=== PATIENT | male | born 1945 | race Caucasian/White ===

== ENCOUNTER 2018-07-16 21:47 | Emergency (ER) | payer MEDICARE, OTHER, SELFPAY ==
[2018-07-16 21:48] VITALS: BP 178/88; PULSE 65; RESP 15; TEMP 36.4; BMI 37.3
[2018-07-16 22:08] VITALS: BP 187/94; PULSE 62; RESP 18; O2SAT 96
--- NOTE | 2018-07-16 22:11 | EKG12_ITS ---
Test Reason : GEN ILL Blood Pressure : / mmHG Vent. Rate : 063 BPM Atrial Rate : 063 BPM P-R Int : 162 ms QRS Dur : 142 ms QT Int : 476 ms P-R-T Axes : 043 -02 028 degrees QTc Int : 487 ms Normal sinus rhythm Right bundle branch block Abnormal ECG Confirmed by ROBERT OREILLY, QUIN ([id number]), deputy editor in chief GABRIELA FRANCOIS ([id number]) on 07/19/2018 1:27:05 PM Referred By: Confirmed By:QUIN JONES MD
[2018-07-16 22:20] LABS: Bedside Glucose 124 mg/dL (70-110)
[2018-07-16 22:21] VITALS: BP 188/89; PULSE 64; RESP 18; O2SAT 95
[2018-07-16 22:22] VITALS: O2SAT 95
--- NOTE | 2018-07-16 22:22 | CT_ITS ---
HISTORY: HTN, DIZZINESS EXAM/TECHNIQUE: CT Head or Brain W/O Contrast: Multiplanar reformats provided. COMPARISON: None. FINDINGS: # of images incl. paperwork: 259 No evidence of intracranial hemorrhage, hydrocephalus mass, or acute infarct. No acute osseous abnormality. Scattered chronic appearing hypodensities in the cerebral white matter. Calcific atherosclerosis of the intracranial arteries. CT/Brain/Head without Contrast IMPRESSION: No acute findings. Individualized dose optimization techniques were used for this CT. at 2754 Reported and signed by: Jose Thomas MD Electronically Signed: Jose Thomas, at 23:16 EDT Tel , Service support ,
--- NOTE | 2018-07-16 22:24 | ED.VISSUMM ---
- ER Visit Summary Date of Service: 07/16/18 Chief Complaint: Lightheadedness History of Present Illness: The patient is a 73 M presenting with lightheadedness and elevated blood pressure. Patient states that he has been checking his blood pressures at home and they have been running with systolics in the 170s and 180s and diastolics in the 90s. He states he has felt intermittently lightheaded for the past week. He denies syncope or vertigo. He was started on a medication for depression 4 weeks ago as well as metoprolol 12.5 mg. He states that since starting this medication he has felt intermittently lightheaded. He denies chest pain. He has mild shortness of breath with dry cough. He has had diarrhea. He complains of 2 out of 10 headache which is not the worst headache of his life. He denies numbness or weakness. He states that he felt confused last week for a few minutes, no confusion today. Denies fever. Denies other complaints. Physical Examination: Vitals are stable. Patient is afebrile. Alert no acute distress. HEENT exam is unremarkable. Neck is supple. Lungs are clear and equal bilaterally. Heart is regular rate and rhythm. Abdomen is soft nontender nondistended. Extremities are unremarkable. Skin is warm and dry. No focal neurologic deficit. NIH 0 Remainder of exam is unremarkable. Emergency Department Course and Treatment: EKG is sinus with a rate of 63, right bundle branch block. Chest x-ray shows no acute process. CT head shows no acute findings. CBC is unremarkable. Chemistries unremarkable. Troponin is negative. Urinalysis unremarkable. Patient is able to ambulate in the ED without any difficulty. He states he feels well enough to go home. His symptoms have been ongoing for several weeks. His main concern was his blood pressure today. His blood pressure is 188/89 in the ED. He is advised to follow-up with his primary care physician at the [place]. He will call them on Wednesday. He is advised to return to ED if he has worsening complaints. Disposition: Discharge home Impression: Hypertension This note was generated with [employer] software. It may contain incorrect words, spelling, and punctuation that were not noted in review of the chart prior to signing ED Disposition - Plan for ED Patient: Referrals: [facility] [Primary Care Provider] -
--- NOTE | 2018-07-16 22:27 | ED.DCSUM_ITS ---
- ER Visit Summary Date of Service: 07/16/18 Chief Complaint: Lightheadedness History of Present Illness: The patient is a 73 M presenting with lightheadedness and elevated blood pressure. Patient states that he has been checking his blood pressures at home and they have been running with systolics in the 170s and 180s and diastolics in the 90s. He states he has felt intermittently lightheaded for the past week. He denies syncope or vertigo. He was started on a medication for depression 4 weeks ago as well as metoprolol 12.5 mg. He states that since starting this medication he has felt intermittently lightheaded. He denies chest pain. He has mild shortness of breath with dry cough. He has had diarrhea. He complains of 2 out of 10 headache which is not the worst headache of his life. He denies numbness or weakness. He states that he felt confused last week for a few minutes, no confusion today. Denies fever. Denies other complaints. Physical Examination: Vitals are stable. Patient is afebrile. Alert no acute distress. HEENT exam is unremarkable. Neck is supple. Lungs are clear and equal bilaterally. Heart is regular rate and rhythm. Abdomen is soft nontender nondistended. Extremities are unremarkable. Skin is warm and dry. No focal neurologic deficit. NIH 0 Remainder of exam is unremarkable. Emergency Department Course and Treatment: EKG is sinus with a rate of 63, right bundle branch block. Chest x-ray shows no acute process. CT head shows no acute findings. CBC is unremarkable. Chemistries unremarkable. Troponin is negative. Urinalysis unremarkable. Patient is able to ambulate in the ED wi thout any difficulty. He states he feels well enough to go home. His symptoms have been ongoing for several weeks. His main concern was his blood pressure today. His blood pressure is 188/89 in the ED. He is advised to follow-up with his primary care physician at the [place]. He will call them on Wednesday. He is advised to return to ED if he has worsening complaints. Disposition: Discharge home Impression: Hypertension This note was generated with [employer] dictation software. It may contain incorrect words, spelling, and punctuation that were not noted in review of the chart prior to signing ED Disposition - Plan for ED Patient: Referrals: [facility] [Primary Care Provider] -
[2018-07-16] MEDS: 0.9% Normal Saline 1,000 ML 50 ML IV (22:39)
[2018-07-16 22:50] VITALS: BP 174/101; PULSE 60; RESP 18; O2SAT 97
[2018-07-16 22:55] LABS: Bacteria 0 SEEN /hpf (None Seen); Mucous, Urine 0 SEEN /hpf (<or=2+); Red Blood Cells-Urine 0 SEEN /hpf (0-5); Squamous Epithelial Cells - UA 0 SEEN /hpf (0-5); White Blood Cells 0 SEEN /hpf (0-5)
[2018-07-16 22:59] LABS: Absolute Lymphocyte Count 3.34 X10^3/ul (0.83-4.51); Absolute Neutrophil Count 3.5 X10^3/uL (2.0-7.7); Basophil# 0.01 X10^3/uL; Basophil% 0.1 % (0-1); Eosinophil# 0.31 X10^3/uL; Eosinophils% 3.9 % (0-5); Hematocrit 42.7 % (40-54); Hemoglobin 14.7 g/dl (13.0-16.5); Lymphocyte # 3.34 X10^3/ul (4.0); Lymphocyte % 42.1 % (19-41); Mean Corp Hgb Conc 34.4 g/gl (32-36); Mean Corpuscular Hgb 29.5 pg (27.0-32.0); Mean Corpuscular Volume 85.7 fL (80-94); Mean Platelet Vol. 9.2 fl (6.2-12.0); Monocyte# 0.73 X10^3/uL; Monocyte% 9.2 % (0-10); Neutrophil # 3.52 X10^3/uL (2.7-7.7); Neutrophil % 44.3 % (47-70); Platelet Count 225 K/mm3 (150-450); RBC Distribution Width SD 40.5 fl (35.1-43.9); Red Blood Count 4.98 M/mm3 (4.6-6.2); White Blood Count 7.9 K/mm3 (4.4-11.0)
[2018-07-16 23:00] LABS: POSITIVE COUNT NO; POSITIVE DIFFERENTIAL NO; POSITIVE MORPHOLOGY NO
--- NOTE | 2018-07-16 23:00 | RAD_ITS ---
HISTORY: hypertension EXAM: XR Chest 2 Views COMPARISON: 08/04/13 CXR FINDINGS: LINES/DEVICES: None. LUNGS: No evidence of pneumothorax, pleural effusion, pneumonia, or pulmonary edema. Mild left basilar atelectasis chronic and unchanged. MEDIASTINUM AND CARDIOVASCULAR STRUCTURES: Cardiac silhouette not enlarged. Central airways and mediastinal contour are unremarkable. BONES AND SOFT TISSUES: Unremarkable. RAD/Chest PA and Lateral IMPRESSION: No radiographic evidence of acute cardiopulmonary disease. at 2319 Reported and signed by: Jose Thomas MD Electronically Signed: Jose Thomas, at 23:18 EDT Tel , Service support ,
[2018-07-16 23:01] LABS: Color, Urine Yellow (Yellow); Glucose, Dipstick Normal (Normal); Ketone-Dipstick Negative (Negative); Leukocyte Esterase-Dipstick Negative /ul (Negative); Nitrite-Dipstick Negative (Negative); Occult Blood-Urine Negative /ul (Negative); Protein-Dipstick 30 mg/dl (Negative); Urine Bilirubin Dipstick Negative (Negative); Urine Clarity Clear (Clear); Urine Urobilinogen Normal (Normal)
[2018-07-16 23:07] LABS: Prothrombin Time (Protime)PT. 12.5 SECONDS (11.7-14.9)
[2018-07-16 23:08] LABS: Partial Thromboplast Time 33.7 Seconds (24.1-36.2)
[2018-07-16 23:14] LABS: Anion Gap 7 (5-15); BUN 20 mg/dL (7-18); BUN/Creat Ratio 19.8 RATIO (10-20); Calcium,Total 8.3 mg/dL (8.5-10.1); Chloride 106 mmol/L (98-107); Creatinine, Serum 1.01 mg/dL (0.70-1.30); EST Glomerular Filtration Rate 77 mL/min (>60); Est Glom Filt Rate - Afr Amer 93 mL/min (>60); Estimated Creatinine Clearance 67.26 ml/min; Glucose 108 mg/dL (74-106); Potassium 3.2 mmol/L (3.5-5.1); Sodium Level 139 mmol/L (136-145)
--- NOTE | 2018-07-16 23:30 | ED.RN ---
PER DR. ROBERTS NO LONGER NEED TO DO NIH STROKE SCALE.
--- NOTE | 2018-07-17 00:09 | ED.DEP ---
ED Disposition - Plan for ED Patient: Instructions: ED HTN Established Referrals: [facility] [Primary Care Provider] -
[2018-07-17 00:20] VITALS: BP 183/99; PULSE 60; RESP 16; RESP 18; O2SAT 95
== END 2018-07-17 00:22 | disposition home or self-care (01) ==
LOC: ED 22:42
PROVIDERS: Emergency Provider Emergency Medicine
DX: I10 Essential (primary) hypertension (principal); R19.7 Diarrhea, unspecified; R06.02 Shortness of breath; R05 Cough; I45.10 Unspecified right bundle-branch block; F32.9 Major depressive disorder, single episode, unspecified; E11.9 Type 2 diabetes mellitus without complications; Z79.82 Long term (current) use of aspirin; Z79.84 Long term (current) use of oral hypoglycemic drugs; Z79.899 Other long term (current) drug therapy
CPT/HCPCS: 70450; 71046; 80048; 81001; 82962; 84484; 85025; 85610; 85730; 93005; 96360; 96361; 99285; J7030; A4216

== ENCOUNTER 2020-10-11 03:34 | Emergency (ER) | payer MEDICARE, OTHER, SELFPAY ==
[2020-10-11 03:35] VITALS: BP 132/96; PULSE 53; RESP 22; TEMP 36.7; O2SAT 94; BMI 37.1
--- NOTE | 2020-10-11 03:43 | EX.ED.UPPERE ---
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 He denies any known injury or overuse that he can remember. He does not recall the onset, if he woke up with it, if it started later, etc. He denies any chest discomfort, pleuritic symptoms, dyspnea, or focal neurologic symptoms except for occasional paresthesias in his right hand when he is having this discomfort and lying back, it resolves when he sits up. He is asking for a muscle relaxer so he can get to sleep. RHD. He states his son felt some lumps where he is having the pain. [facility] Medical History HTN (hypertension) Hypercholesteremia Home Medications Potassium Citrate 10 meq PO DAILY 02/22/13 [History Last Taken Unknown] aspirin 81 mg PO DAILY@0800 02/22/13 [History Last Taken Unknown] aripiprazole [Abilify] 5 mg PO DAILY 07/16/18 [History Last Taken Unknown] atorvastatin [Lipitor] 80 mg PO DAILY 07/16/18 [History Last Taken Unknown] losartan 100 mg PO DAILY 07/16/18 [History Last Taken Unknown] metformin 1,000 mg PO BID 07/16/18 [History Last Taken Unknown] metoprolol succinate 12.5 mg PO DAILY 07/16/18 [History Last Taken Unknown] mirabegron [Myrbetriq] 25 mg PO DAILY 07/16/18 [History Last Taken Unknown] nifedipine 60 mg PO DAILY 07/16/18 [History Last Taken Unknown] paroxetine HCl 20 mg PO DAILY 07/16/18 [History Last Taken Unknown] tamsulosin 0.4 mg PO DAILY 07/16/18 [History Last Taken Unknown] valproic acid 250 mg PO DAILY 07/16/18 [History Last Taken Unknown] cyclobenzaprine 10 mg PO BID PRN #12 tablet 10/11/20 [Rx Last Taken Unknown] hydrocodone-acetaminophen 0.5 - 1 tab PO Q4H PRN PRN 2 Days #8 tablet 10/11/20 [Rx Last Taken Unknown] Allergy/AdvReac Type Severity Reaction Status Date / Time No Known Allergies Allergy Verified 07/16/18 21:51 Social History Smoking Status: Unknown if ever smoked ROS ROS ED Constitutional Constitutional ED: Denies chills or fever(s) Eyes Eyes: Denies change in vision or diplopia ENT ENT ED: Denies rhinorrhea or sore throat Cardiovascular Cardiovascular: Denies chest pain, chest pain with activity or palpitations Respiratory/Chest Respiratory/Chest: Denies chest tightness, cough, dyspnea or dyspnea on exertion Gastrointestinal Gastrointestinal: Denies abdominal pain, diarrhea, nausea or vomiting Genitourinary Genitourinary ED: Denies dysuria or hematuria Musculoskeletal Musculoskeletal: Reports as per HPI and back pain; Denies neck pain Integumentary Denies abscess or rash Neurologic Neurologic: Denies headache(s), paresthesias or weakness Psychiatric Psychiatric: Denies anxiety or suicidal thoughts EXAM Physical Exam Const Vital Signs: 10/11/20 03:35 Temperature 98.1 F Temperature Source Oral Pulse Rate 53 L Respiratory Rate 22 H Blood Pressure 132/96 H Blood Pressure Mean 108 Pulse Ox 94 Oxygen Delivery Method Room Air Positive well nourished and well developed General Appearance ED: well developed and NAD HEENT Reports moist mucous membranes normocephalic and atraumatic Eyes PERRL and EOMs intact bilaterally Neck full ROM and supple Resp normal respiratory effort and clear to auscultation bilaterally Cardio regular rate, regular rhythm and no murmurs Rate: Negative for tachycardic GI non-tender and non-distended Auscultation: normoactive bowel sounds Palpation: soft Back/Spine no CVA tenderness Back/Spine Narrative: Tenderness reproducing the patient's pain in the right rhomboids and medial periscapular area. Normal inspection of this area. No palpable lumps or nodules or abscess. Nontender in the midline/spine. Full range of motion of the right upper arm/shoulder. Deep inspiration without splinting. General Back: other FROM Extremity normal to inspection General Extremety ED: Negative for edema, pulses abnormal or tenderness General Extremity: Negative for edema or pulses abnormal Neuro oriented x3, CN's II-XII intact bilaterally, no sensory deficits noted and gait normal Sensorium / Orientation: awake and alert Motor Exam: strength 5/5 throughout Skin no rashes or lesions noted and no wounds MDM MDM MDM Narrative Medical decision making narrative: At this time I think this is musculoskeletal in etiology. Patient agrees. I am okay with giving him a short supply of analgesics and muscle relaxers until he can follow-up, he is driving home so he was given prescriptions to have filled and take when he gets home. Discussed reasons to return and follow-up and he is comfortable with that plan. Discharge Plan Triage Chief Complaint: Upper Extremity Injury ED Provider: Terry Gordon Dx/Rx/DC Orders Clinical Impression: Acute thoracic back pain Instructions: ED Back Pain (Acute or Chronic) Prescriptions: New cyclobenzaprine [cyclobenzaprine] 10 MG tablet 10 mg PO BID PRN (Reason: Muscle Spasm) Qty: 12 RF: 0 hydrocodone-acetaminophen [hydrocodone-acetaminophen] 1 TABLET tablet 0.5 - 1 tab PO Q4H PRN PRN (Reason: Pain) 2 Days Qty: 8 RF: 0 No Action aspirin 81 MG tablet,chewable 81 mg PO DAILY@0800 RF: 0 Potassium Citrate 10 meq PO DAILY RF: 0 atorvastatin [Lipitor] 80 MG tablet 80 mg PO DAILY RF: 0 valproic acid 250 MG capsule 250 mg PO DAILY RF: 0 nifedipine 60 MG tablet 60 mg PO DAILY RF: 0 tamsulosin 0.4 MG capsule 0.4 mg PO DAILY RF: 0 paroxetine HCl 20 MG tablet 20 mg PO DAILY RF: 0 metformin 1,000 MG tablet 1,000 mg PO BID RF: 0 metoprolol succinate 25 MG tablet extended release 24 hr 12.5 mg PO DAILY RF: 0 losartan 100 MG tablet 100 mg PO DAILY RF: 0 aripiprazole [Abilify] 5 MG tablet 5 mg PO DAILY RF: 0 mirabegron [Myrbetriq] 25 MG tablet extended release 24 hr 25 mg PO DAILY RF: 0 [facility] [[facility]] - 3-5 Days if not improving Disposition Disposition: Home, Self Care
== END 2020-10-11 04:28 | disposition home or self-care (01) ==
LOC: ED 03:56
PROVIDERS: Emergency Provider Emergency Medicine
DX: M54.6 Pain in thoracic spine (principal); I10 Essential (primary) hypertension; E78.00 Pure hypercholesterolemia, unspecified; Z79.82 Long term (current) use of aspirin; Z79.899 Other long term (current) drug therapy
CPT/HCPCS: 99282

== ENCOUNTER 2021-09-01 16:45 | Inpatient (IN) | payer OTHER, SELFPAY ==
[2021-09-01] VITALS (11 sets, daily range): BP systolic 87–112; BP diastolic 43–79; PULSE 42–58; RESP 16–23; TEMP 36.2–36.7; O2SAT 92–99; BMI 36.3; BMI 36.4
--- NOTE | 2021-09-01 17:03 | EKG12_ITS ---
Test Reason : Blood Pressure : / mmHG Vent. Rate : 043 BPM Atrial Rate : 043 BPM P-R Int : 184 ms QRS Dur : 146 ms QT Int : 508 ms P-R-T Axes : 051 014 032 degrees QTc Int : 429 ms Marked sinus bradycardia Right bundle branch block Abnormal ECG Confirmed by NAV OREILLY, TANA ([id number]), proposal editor GABRIELA FRANCOIS ([id number]) on 09/02/2021 9:04:52 AM Referred By: JEREMY Confirmed By:TANA CHOPRA MD
--- NOTE | 2021-09-01 17:04 | EDS_ITS ---
HPI History of Present Illness Chief Complaint: General Illness Narrative Narrative: 26-year-old male presenting with lightheadedness and near syncope which started today at about 330. He noted his blood pressure was in the 70s systolic. He states this is same blood pressure cuff that he always uses. He has had no medication changes. Patient takes losartan 100 mg p.o. daily, metoprolol succinate 12.5 mg p.o. daily, nifedipine which may have affected his blood pressure. Patient denies chest pain. He states that shortness of breath is his typical shortness of breath. No fever, cough. No nausea or vomiting. He denies leg swelling. He states he had diarrhea once 3 days ago and does not think he is dehydrated. He is eating and drinking normally. Is making normal urine and stool. He denies black or bloody stools. He is not anticoagulated. [facility] Medical History (Updated 09/01/21 @ 19:44 by Kait Hoyos) Anxiety CPAP (continuous positive airway pressure) dependence Depression Diabetes Former smoker HTN (hypertension) Hypercholesteremia Kidney stones PTSD (post-traumatic stress disorder) Sleep apnea Home Medications Potassium Citrate 10 meq PO DAILY 02/22/13 [History Last Taken 09/01/21] aspirin 81 mg chewable tablet 81 mg PO DAILY@0800 02/22/13 [History Last Taken 09/01/21] aripiprazole 5 mg tablet (Abilify) 5 mg PO DAILY 07/16/18 [History Last Taken 09/01/21] atorvastatin 80 mg tablet (Lipitor) 80 mg PO DAILY 07/16/18 [History Last Taken 08/31/21] losartan 100 mg tablet 100 mg PO DAILY 07/16/18 [History Last Taken 09/01/21] metformin 1,000 mg tablet 1,000 mg PO BID 07/16/18 [History Last Taken 09/01/21] metoprolol succinate 25 mg tablet,extended release 24 hr 12.5 mg PO DAILY 07/16/18 [History Last Taken 09/01/21] mirabegron 25 mg tablet,extended release 24 hr (Myrbetriq) 25 mg PO DAILY 07/16/18 [History Last Taken 09/01/21] nifedipine 60 mg tablet,extended release 24 hr 60 mg PO DAILY 07/16/18 [History Last Taken 09/01/21] paroxetine HCl 20 mg tablet 20 mg PO DAILY 07/16/18 [History Last Taken 09/01/21] tamsulosin 0.4 mg capsule 0.4 mg PO DAILY 07/16/18 [History Last Taken 09/01/21] valproic acid 250 mg capsule 250 mg PO DAILY 07/16/18 [History Last Taken 09/01/21] cyclobenzaprine 10 mg tablet 10 mg PO BID PRN Muscle Spasm #12 TABLETS 10/11/20 [Rx Last Taken 09/01/21] hydrocodone-acetaminophen 5-325mg 5mg-325mg 0.5 - 1 tab PO Q4H PRN PRN Pain 2 days #8 TABLETS 10/11/20 [Rx Last Taken Unknown] Allergy/AdvReac Type Severity Reaction Status Date / Time No Known Allergies Allergy Verified 07/16/18 21:51 Surgical History (Updated 09/01/21 @ 19:44 by Kait Hoyos) History of cholecystectomy Social History Smoking Status: Former smoker ROS ROS ED Constitutional Constitutional ED: Denies chills, fever(s) or sweats Eyes Eyes: Denies blurry vision or change in vision ENT ENT ED: Denies rhinorrhea or sore throat Cardiovascular Cardiovascular: Reports palpitations; Denies chest pain Respiratory/Chest Respiratory/Chest: Denies cough or dyspnea Gastrointestinal Gastrointestinal: Reports diarrhea; Denies abdominal pain or constipation Genitourinary Genitourinary ED: Denies dysuria or hematuria Musculoskeletal Musculoskeletal: Denies arthralgias or back pain Integumentary Denies abscess or Abrasions Neurologic Neurologic: Denies headache(s) or paresthesias Psychiatric Psychiatric: Denies anxiety or depression EXAM Physical Exam Const Vital Signs: 09/01/21 16:46 09/01/21 17:10 09/01/21 17:12 Temperature 97.4 F L Temperature Source Temporal Pulse Rate 45 L Respiratory Rate 22 H Respiratory Effort Normal Non-Labored Respiratory Pattern Normal Blood Pressure 104/79 Blood Pressure Mean 87 Pulse Ox 94 Oxygen Delivery Method Room Air Room Air Oxygen Flow Rate (L/min) 09/01/21 17:14 09/01/21 17:20 09/01/21 17:31 Temperature Temperature Source Pulse Rate 42 L 42 L Respiratory Rate 18 18 Respiratory Effort Respiratory Pattern Blood Pressure 87/49 L 94/43 L Blood Pressure Mean 61 60 Pulse Ox 92 94 Oxygen Delivery Method Room Air Nasal Cannula Oxygen Flow Rate (L/min) 2 09/01/21 17:55 09/01/21 18:53 09/01/21 19:05 Temperature Temperature Source Pulse Rate 42 L 46 L 51 L Respiratory Rate 18 18 16 Respiratory Effort Respiratory Pattern Blood Pressure 95/44 L 100/46 L 112/67 Blood Pressure Mean 61 64 82 Pulse Ox 99 Oxygen Delivery Method Room Air Oxygen Flow Rate (L/min) 09/01/21 19:37 Temperature 97.1 F L Temperature Source Temporal Pulse Rate 49 L Respiratory Rate 23 H Respiratory Effort Respiratory Pattern Blood Pressure 93/46 L Blood Pressure Mean 61 Pulse Ox 95 Oxygen Delivery Method Room Air Oxygen Flow Rate (L/min) Positive well nourished General Appearance ED: NAD; Negative for pallor HEENT Reports moist mucous membranes Negative for trauma Eyes PERRL and EOMs intact bilaterally General Eye ED: Negative for pale conjunctiva or scleral icterus Chest Wall inspection of chest normal Resp normal respiratory effort and clear to auscultation bilaterally Effort and Inspection: Negative for retractions or pain with movement Auscultation: Negative for rales, rhonchi or wheezes Cardio regular rhythm Rate: bradycardia GI normal to inspection, nondistended, normoactive bowel sounds Neuro oriented x3, CN's II-XII intact bilaterally and no sensory deficits noted Sensorium / Orientation: alert Motor Exam: strength 5/5 throughout Psych mental status grossly normal Skin no rashes or lesions noted and no wounds General Skin Exam: Negative for jaundice or pallor MDM MDM MDM Narrative Medical decision making narrative: Patient presenting with symptomatic bradycardia. His blood pressure did improve with a probable dose however it dropped back down to 93/46. He states his blood pressure is typically around 100 systolic. He states that the drop she had earlier were much greater than usual. BC is unremarkable. BMP shows an acute kidney injury with a creatinine 1.70. After initial fluid bolus patient was given another liter of IV fluids. BNP elevated at 117 however the chest x-ray on my interpretation shows no acute cardiopulmonary process and the radiologist does agree. EKG on my interpretation shows a sinus bradycardia with a ventricular rate of 43 bpm without sign of ischemic change. High-sensitivity troponin is 18. Patient does not report any chest pain or new shortness of breath. Patient is on beta-blockers and calcium channel blockers which he states are for hypertension he has had no medication changes. Delta troponin is 14. There is no significant interval change. Patient was unsure of the medications he was on currently but states they are all in the computer. I did see that he had Depakote in his prescription list however this 1 level is less than detectable. Given the symptomatic bradycardia and the near syncopal episodes x2 I think he needs to be observed overnight. I spoke with the hospital for this. Impression: 1. Symptomatic bradycardia 2. Near syncope 3. Hypotension Lab Data Attestation: I reviewed the patient's lab results. Labs: Laboratory Results - last 24 hr 09/01/21 09/01/21 09/01/21 17:10 17:10 17:10 WBC 9.5 RBC 4.79 Hgb 13.9 Hct 41.2 MCV 86.0 MCH 29.0 MCHC 33.7 RDW Std Deviation 39.9 RDW Coeff of Pat 12.7 Plt Count 266 MPV 9.0 Immature Gran % (Auto) 0.800 Neut % (Auto) 61.6 Lymph % (Auto) 25.9 [place] % (Auto) 7.0 Eos % (Auto) 4.3 Baso % (Auto) 0.4 Absolute Neuts (auto) 5.8 Absolute Lymphs (auto) 2.46 Nucleated RBC % 0 Sodium 139 Potassium 3.9 Chloride 103 Carbon Dioxide 27.0 Anion Gap 9 BUN 24 H Creatinine 1.70 H Estim Creat Clear Calc 38.17 Est GFR (MDRD) Af Amer 51 L Est GFR (MDRD) Non-Af 42 L BUN/Creatinine Ratio 14.1 Glucose 149 H Calcium 9.6 Troponin I High Sens 18 B-Natriuretic Peptide 117.0 H Valproic Acid 09/01/21 09/01/21 17:10 19:35 WBC RBC Hgb Hct MCV MCH MCHC RDW Std Deviation RDW Coeff of Pat Plt Count MPV Immature Gran % (Auto) Neut % (Auto) Lymph % (Auto) [place] % (Auto) Eos % (Auto) Baso % (Auto) Absolute Neuts (auto) Absolute Lymphs (auto) Nucleated RBC % Sodium Potassium Chloride Carbon Dioxide Anion Gap BUN Creatinine Estim Creat Clear Calc Est GFR (MDRD) Af Amer Est GFR (MDRD) Non-Af BUN/Creatinine Ratio Glucose Calcium Troponin I High Sens 14 B-Natriuretic Peptide Valproic Acid < 3 L Radiography Diagnostic Testing: Clinical Impression(s) from Imaging Studies Chest X-Ray 09/01/21 17:25 IMPRESSION: No acute cardiopulmonary process. Electronically Signed: Soto Lucero MD at 17:59 EDT , Discharge Plan Disposition Disposition: Acute Care Hospital [facility] Discharge Date/Time: 09/01/21 19:55
[2021-09-01] MEDS: 0.9% Normal Saline 1,000 ML 1000 ML IV (17:20)
--- NOTE | 2021-09-01 17:25 | RAD_ITS ---
STUDY: X-RAY CHEST REASON FOR EXAM: Male, 76 years old. chest pain TECHNIQUE: 1 view COMPARISON: 07/16/2018 FINDINGS: Cardiomediastinal silhouette is unremarkable. Costophrenic angles are sharp. Lungs are clear. The trachea is midline. There is no pneumothorax. The bones are grossly intact. RAD/Chest 1 View (Portable) IMPRESSION: No acute cardiopulmonary process. Electronically Signed: Soto Lucero MD at 17:59 EDT ,
[2021-09-01 17:31] LABS: Absolute Lymphocyte Count 2.46 X10^3/uL (0.83-4.51); Absolute Neutrophil Count 5.8 X10^3/uL (2.0-7.7); Basophil# 0.04 X10^3/uL; Basophil% 0.4 % (0-1); Eosinophil# 0.41 X10^3/uL; Eosinophils% 4.3 % (0-5); Hematocrit 41.2 % (40-54); Hemoglobin 13.9 g/dL (13.0-16.5); Lymphocyte # 2.46 X10^3/ul (0.83-4.51); Lymphocyte % 25.9 % (19-41); Mean Corp Hgb Conc 33.7 g/dL (32-36); Monocyte# 0.66 X10^3/uL; NRBC Flagged by Analyzer 0 % (0-5); Neutrophil # 5.84 X10^3/uL (2.7-7.7); Neutrophil % 61.6 % (47-70); Platelet Count 266 K/mm3 (150-450); RBC Distribution Width CV 12.7 % (11.6-14.6); RBC Distribution Width SD 39.9 fl (35.1-43.9); Red Blood Count 4.79 M/mm3 (4.6-6.2); White Blood Count 9.5 K/mm3 (4.4-11.0)
[2021-09-01 17:46] LABS: Anion Gap 9 (5-15); BUN 24 mg/dL (7-18); BUN/Creat Ratio 14.1 RATIO (10-20); Calcium,Total 9.6 mg/dL (8.5-10.1); Chloride 103 mmol/L (98-107); EST Glomerular Filtration Rate 42 mL/min (>60); Est Glom Filt Rate - Afr Amer 51 mL/min (>60); Estimated Creatinine Clearance 38.17 ml/min; Glucose 149 mg/dL (74-106); Potassium 3.9 mmol/L (3.5-5.1); Sodium Level 139 mmol/L (136-145); Troponin-I HS (w/2H Reflex) 18 pg/mL (3.0-78.0)
[2021-09-01 18:45] LABS: Valproic Acid (Depakene) Level < 3 ug/mL (50-100)
[2021-09-01 19:17] LABS: Reflex Troponin-HS? (from REC) Y
--- NOTE | 2021-09-01 19:32 | PCM.HP.STD ---
[facility] - General General Date of Admission: 09/01/21 Date of Service: 09/01/21 Chief Complaint: dizzy and lightheaded HPI Narrative YULI LORENZ, is a 76 M who presents to the emergency room with chief complaint of dizziness and lightheadedness. Onset of symptoms began approximately 3:00 this afternoon when the patient stood up from his chair he felt dizzy and lightheaded but did not pass out. The patient denies any chest pain shortness of breath fever or chills and/or nausea and vomiting. Patient has significant past medical history of Parkinson's disease and hypertension for which he takes a beta-casie and a calcium channel casie. He was noted to have symptomatic bradycardia in the emergency room with negative troponin and a slight increase in his creatinine from his baseline. Currently the patient still complains of some mild lightheadedness while resting in bed. Patient will be admitted to progressive care unit for observation and hold his beta-casie and calcium channel casie overnight. [facility] Medical History (Updated 09/01/21 @ 19:[address] Patel Blanco MD) HTN (hypertension) Hypercholesteremia Home Medications Potassium Citrate 10 meq PO DAILY 02/22/13 [History Last Taken 09/01/21] aspirin 81 mg chewable tablet 81 mg PO DAILY@0800 02/22/13 [History Last Taken 09/01/21] aripiprazole 5 mg tablet (Abilify) 5 mg PO DAILY 07/16/18 [History Last Taken 09/01/21] atorvastatin 80 mg tablet (Lipitor) 80 mg PO DAILY 07/16/18 [History Last Taken 08/31/21] losartan 100 mg tablet 100 mg PO DAILY 07/16/18 [History Last Taken 09/01/21] metformin 1,000 mg tablet 1,000 mg PO BID 07/16/18 [History Last Taken 09/01/21] metoprolol succinate 25 mg tablet,extended release 24 hr 12.5 mg PO DAILY 07/16/18 [History Last Taken 09/01/21] mirabegron 25 mg tablet,extended release 24 hr (Myrbetriq) 25 mg PO DAILY 07/16/18 [History Last Taken 09/01/21] nifedipine 60 mg tablet,extended release 24 hr 60 mg PO DAILY 07/16/18 [History Last Taken 09/01/21] paroxetine HCl 20 mg tablet 20 mg PO DAILY 07/16/18 [History Last Taken 09/01/21] tamsulosin 0.4 mg capsule 0.4 mg PO DAILY 07/16/18 [History Last Taken 09/01/21] valproic acid 250 mg capsule 250 mg PO DAILY 07/16/18 [History Last Taken 09/01/21] cyclobenzaprine 10 mg tablet 10 mg PO BID PRN Muscle Spasm #12 TABLETS 10/11/20 [Rx Last Taken 09/01/21] hydrocodone-acetaminophen 5-325mg 5mg-325mg 0.5 - 1 tab PO Q4H PRN PRN Pain 2 days #8 TABLETS 10/11/20 [Rx Last Taken Unknown] Allergy/AdvReac Type Severity Reaction Status Date / Time No Known Allergies Allergy Verified 07/16/18 21:51 Social History Smoking Status: Former smoker ROS Cardiovascular Cardiovascular: Reports slow heart rate Neurologic Neurologic: Reports tremor(s) Vital Signs Vital Signs Vital Signs: 09/01/21 16:46 09/01/21 17:10 09/01/21 17:12 Temperature 97.4 F L Temperature Source Temporal Pulse Rate 45 L Respiratory Rate 22 H Respiratory Effort Normal Non-Labored Respiratory Pattern Normal Blood Pressure 104/79 Blood Pressure Mean 87 Pulse Ox 94 Oxygen Delivery Method Room Air Room Air Oxygen Flow Rate (L/min) 09/01/21 17:14 09/01/21 17:20 09/01/21 17:31 Temperature Temperature Source Pulse Rate 42 L 42 L Respiratory Rate 18 18 Respiratory Effort Respiratory Pattern Blood Pressure 87/49 L 94/43 L Blood Pressure Mean 61 60 Pulse Ox 92 94 Oxygen Delivery Method Room Air Nasal Cannula Oxygen Flow Rate (L/min) 2 09/01/21 17:55 09/01/21 18:53 09/01/21 19:05 Temperature Temperature Source Pulse Rate 42 L 46 L 51 L Respiratory Rate 18 18 16 Respiratory Effort Respiratory Pattern Blood Pressure 95/44 L 100/46 L 112/67 Blood Pressure Mean 61 64 82 Pulse Ox 99 Oxygen Delivery Method Room Air Oxygen Flow Rate (L/min) Weight Weight: 253 lb Body Mass Index (BMI) 36.3 Physical Exam Const oriented x3 General Appearance: cooperative HEENT normocephalic and head/scalp atraumatic Eyes PERRL Neck nuchal rigidity, no lymphadenopathy, supple, no JVD, thyroid normal, nodes and no carotid bruits Lymph Lymphatic: no lymphadenopathy noted, no lymphedema noted, lymphedema, lymphadenopathy and other Resp normal respiratory effort, normal air movement and clear to auscultation bilaterally Cardio regular rate, S1 normal heart sound and S2 normal heart sound Rate: bradycardia GI soft to palpation Extremity normal capillary refill Skin General Skin Exam: no breakdown Neuro CN's II-XII intact bilaterally Psych Appearance: appropriate Results Lab / Micro Data Result Diagrams: 09/01/21 17:10 09/01/21 17:10 Labs: Laboratory Results - last 24 hr 09/01/21 17:10: WBC 9.5, RBC 4.79, Hgb 13.9, Hct 41.2, MCV 86.0, MCH 29.0, MCHC 33.7, RDW Std Deviation 39.9, RDW Coeff of Pat 12.7, Plt Count 266, MPV 9.0, Immature Gran % (Auto) 0.800, Neut % (Auto) 61.6, Lymph % (Auto) 25.9, [place] % (Auto) 7.0, Eos % (Auto) 4.3, Baso % (Auto) 0.4, Absolute Neuts (auto) 5.8, Absolute Lymphs (auto) 2.46, Nucleated RBC % 0 09/01/21 17:10: Sodium 139, Potassium 3.9, Chloride 103, Carbon Dioxide 27.0, Anion Gap 9, BUN 24 H, Creatinine 1.70 H, Estim Creat Clear Calc 38.17, Est GFR (MDRD) Af Amer 51 L, Est GFR (MDRD) Non-Af 42 L, BUN/Creatinine Ratio 14.1, Glucose 149 H, Calcium 9.6, Troponin I High Sens 18 09/01/21 17:10: B-Natriuretic Peptide 117.0 H 09/01/21 17:10: Valproic Acid < 3 L Radiology Impression Chest X-Ray 09/01/21 17:25 IMPRESSION: No acute cardiopulmonary process. Electronically Signed: Soot Lucero MD at 17:59 EDT Reading Location ID and State: [facility] / MD Tel , Service support , Assessment & Plan Assessment/Plan (1) Parkinson disease: (2) HTN (hypertension): (3) Bradycardia with 41-50 beats per minute: PLAN: Plan 1. Symptomatic bradycardia?admit patient for observation to progressive care unit, hold beta-casie and calcium channel casie and reevaluate in the morning 2. History of Parkinson's disease?continue home routine medication 3. Acute renal insufficiency?IV hydration overnight and recheck BMP in the morning 4. DVT prophylaxis?low molecular weight heparin Charges/Coding Visit Charges OBSV E&M: 16405 Initial observation care L2
[2021-09-01 20:00] LABS: Troponin-I HS 14 pg/mL (3.0-78.0)
[2021-09-01] MEDS: 0.9% Normal Saline 1,000 ML 75 ML IV (20:46)
[2021-09-01] MEDS: 0.9% Saline Lock 10 ML Syringe IV (20:47)
--- NOTE | 2021-09-01 23:21 | NURSING ---
Pt med rec completed w/ pt med list from home.
[2021-09-02] VITALS (14 sets, daily range): BP systolic 143–182; BP diastolic 69–77; PULSE 53–65; RESP 16–18; TEMP 36.5–37.2; O2SAT 92–98
[2021-09-02 07:15] LABS: Anion Gap 7 (5-15); BUN 20 mg/dL (7-18); BUN/Creat Ratio 18.7 RATIO (10-20); Calcium,Total 8.8 mg/dL (8.5-10.1); Chloride 105 mmol/L (98-107); Creatinine, Serum 1.07 mg/dL (0.70-1.30); EST Glomerular Filtration Rate 71 mL/min (>60); Est Glom Filt Rate - Afr Amer 86 mL/min (>60); Estimated Creatinine Clearance 60.64 ml/min; Glucose 94 mg/dL (74-106); Potassium 4.4 mmol/L (3.5-5.1); Sodium Level 137 mmol/L (136-145)
[2021-09-02] MEDS: Losartan Potassium 100 MG Tablet PO (08:10)
[2021-09-02] MEDS: Potassium Chloride Oral Tablet 10 MEQ PO (08:11)
[2021-09-02] MEDS: metFORMIN HCl 1,000 MG Tablet 1000 MG PO ×2 (08:11→17:28)
[2021-09-02] MEDS: ARIPiprazole 5 MG Tablet PO (08:11)
[2021-09-02] MEDS: Aspirin 81 MG TAB.CHEW PO (08:11)
[2021-09-02] MEDS: Mirabegron 25 MG TAB.ER.24H PO (08:11)
[2021-09-02] MEDS: Tamsulosin HCl 0.4 MG Capsule PO (08:12)
[2021-09-02] MEDS: Enoxaparin 40 MG/0.4 ML Syringe SC (08:12)
[2021-09-02] MEDS: Valproic Acid 250 MG/5 ML UDC PO (08:12)
[2021-09-02] MEDS: Paroxetine 20 MG Tablet PO (08:12)
--- NOTE | 2021-09-02 11:15 | CASEMGMT ---
RN KATY Face to Face with patient for initial transition planning/care coordination assessment. RN CM introduced self and role at [facility]. Patient lying in bed, alert and oriented. Patient willing to participate in assessment and is able to answer all questions appropriately. Care providers, pharmacy, and demographics verified. Patient wishes to discharge home, denies need for home health at this time. Patient states he has no further needs or concerns at this time. CM to follow for discharge planning needs that may arise. PCP: Tomasa Black at [facility] Specialists: [facility] Preferred Pharmacy: [facility] [place] Insurance: [facility], [employer], [employer] Prescription Benefit: yes Living Will/HPOA: none LNOK: Living Arrangements: Patient lives with in a 2 story home with bed and bath on first floor. 2 steps to enter the home. Patient states he is independent at home. Transportation: self, DME/HHC: Patient states he has shower chair, cane, rollator, grab bars, cpap, pulse ox, BP cuff at home. Patient states he has had [facility] in the past. Disposition Plan: Patient to discharge home with family support and follow-up plans in place. Nenita EGAN, RN, CM
--- NOTE | 2021-09-02 13:10 | PN.HOSP_ITS ---
Subjective Subjective Follow-up on acute symptomatic bradycardia/near syncope/hypotension: Patient was seen and examined. His blood pressure and heart rate is improved. He has been taking of metoprolol and nifedipine. He denied any dizziness or palpitation. Objective Data Objective Data Vital Signs: Vital Signs Temp Pulse Resp BP Pulse Ox FiO2 98.0 F 53 L 16 152/74 H 94 32 09/02/21 08:10 09/02/21 08:10 09/02/21 08:10 09/02/21 08:10 09/02/21 10:45 09/01/21 23:41 Oxygen Flow Rate (L/min) 2 Oxygen Delivery Method CPAP Weight: 115.3 kg Body Mass Index (BMI) 36.4 Intake & Output: Intake and Output for Last 24 Hours 08/31/21 09/01/21 09/02/21 23:59 23:59 23:59 Intake Total 1240 / 1240 1198.75 / 1198.75 Balance 1240 / 1240 1198.75 / 1198.75 Lab / Micro Data Result Diagrams: 09/01/21 17:10 09/02/21 05:55 Labs: Laboratory Results - last 24 hr 09/01/21 17:10: WBC 9.5, RBC 4.79, Hgb 13.9, Hct 41.2, MCV 86.0, MCH 29.0, MCHC 33.7, RDW Std Deviation 39.9, RDW Coeff of Pat 12.7, Plt Count 266, MPV 9.0, Immature Gran % (Auto) 0.800, Neut % (Auto) 61.6, Lymph % (Auto) 25.9, [place] % (Auto) 7.0, Eos % (Auto) 4.3, Baso % (Auto) 0.4, Absolute Neuts (auto) 5.8, Absolute Lymphs (auto) 2.46, Nucleated RBC % 0 09/01/21 17:10: Sodium 139, Potassium 3.9, Chloride 103, Carbon Dioxide 27.0, Anion Gap 9, BUN 24 H, Creatinine 1.70 H, Estim Creat Clear Calc 38.17, Est GFR (MDRD) Af Amer 51 L, Est GFR (MDRD) Non-Af 42 L, BUN/Creatinine Ratio 14.1, Glucose 149 H, Calcium 9.6, Troponin I High Sens 18 09/01/21 17:10: B-Natriuretic Peptide 117.0 H 09/01/21 17:10: Valproic Acid < 3 L 09/01/21 19:35: Troponin I High Sens 14 09/02/21 05:55: Sodium 137, Potassium 4.4, Chloride 105, Carbon Dioxide 25.0, Anion Gap 7, BUN 20 H, Creatinine 1.07, Estim Creat Clear Calc 60.64, Est GFR (MDRD) Af Amer 86, Est GFR (MDRD) Non-Af 71, BUN/Creatinine Ratio 18.7, Glucose 94, Calcium 8.8 Radiography Diagnostic Testing: Radiology Impression Chest X-Ray 09/01/21 17:25 IMPRESSION: No acute cardiopulmonary process. Electronically Signed: Soto Lucero MD at 17:59 EDT , Physical Exam Narrative Physical exam: General: Alert, Oriented x3, Cooperative, No apparent distress HEENT: Atraumatic Oral: Moist Mucosa Neck: Supple Lungs: Clear to auscultation Cardiovascular: HS I+II, regular, no murmurs Abdomen: Bowel Sounds Present, Soft, Non Tender Extremities: No edema Skin: No rashes, No breakdown Neurological: Grossly intact Psych/Mental Status: Appropriate Assessment & Plan Assessment/Plan (1) Parkinson disease: (2) HTN (hypertension): (3) Bradycardia with 41-50 beats per minute: PLAN: Plan 1. Acute symptomatic bradycardia, improved, off metoprolol and nifedipine Heart rate to now is 53, continue to monitor 2. Hypertension, BP is slightly uncontrolled, continue on chlorthalidone, Losartan, spironolactone Metoprolol and nifedipine are on hold 3. History of Parkinson's disease, continue on Sinemet 4. Anxiety/depression/bipolar disorder, continue on Abilify, Paxil, valproic acid 5. DVT prophylaxis?Heparin SC Charges/Coding Visit Charges Inpatient E&M: 56965 Subs Hosp L2
[2021-09-02] MEDS: Carbidopa/Levodopa 25/100 Tablet PO ×3 (13:34→21:08)
[2021-09-02] MEDS: Chlorthalidone 50 MG Tablet 25 MG PO (17:27)
[2021-09-02] MEDS: Spironolactone 25 MG Tablet 12.5 MG PO (17:27)
[2021-09-02] MEDS: Atorvastatin Calcium 80 MG Tablet PO (21:09)
[2021-09-02] MEDS: 0.9% Saline Lock 10 ML Syringe IV (21:09)
[2021-09-03] VITALS (7 sets, daily range): BP systolic 140–166; BP diastolic 67–80; PULSE 48–65; RESP 15–16; TEMP 36.2–36.5; O2SAT 94–98
[2021-09-03] MEDS: metFORMIN HCl 1,000 MG Tablet 1000 MG PO (08:49)
[2021-09-03] MEDS: Aspirin 81 MG TAB.CHEW PO (08:49)
[2021-09-03] MEDS: ARIPiprazole 5 MG Tablet PO (08:50)
[2021-09-03] MEDS: Tamsulosin HCl 0.4 MG Capsule PO (08:51)
[2021-09-03] MEDS: Losartan Potassium 100 MG Tablet PO (08:51)
[2021-09-03] MEDS: Mirabegron 25 MG TAB.ER.24H PO (08:51)
[2021-09-03] MEDS: Paroxetine 20 MG Tablet PO (08:52)
[2021-09-03] MEDS: Finasteride 5 MG Tablet PO (08:53)
[2021-09-03] MEDS: Carbidopa/Levodopa 25/100 Tablet PO ×2 (08:53→14:22)
[2021-09-03] MEDS: Spironolactone 25 MG Tablet 12.5 MG PO (08:54)
[2021-09-03] MEDS: Valproic Acid 250 MG/5 ML UDC PO (08:56)
[2021-09-03] MEDS: Potassium Chloride Oral Tablet 10 MEQ PO (08:56)
[2021-09-03] MEDS: Enoxaparin 40 MG/0.4 ML Syringe SC (08:58)
[2021-09-03] MEDS: Chlorthalidone 50 MG Tablet 25 MG PO (08:58)
[2021-09-03] MEDS: Cholecalciferol (VIT D3) 25 MCG TABLET (1,000 UNITS) 50 MCG PO (08:58)
--- NOTE | 2021-09-03 10:40 | CASEMGMT ---
This RN CM to room to discuss d/c plan with pt and he states no concerns with going home at time of discharge. Pt declines need for any therapy at home. SStbrisa GOOD CM
--- NOTE | 2021-09-03 11:33 | DCINST_ITS ---
Discharge Instructions Diet Discharge Diet: Low fat / Low cholesterol and 2000 mg Sodium Diet Activity Discharge Activity: Return to Normal Activity Follow Up Care Test Results: Test results from this visit will be discussed in further detail at your follow- up appointment, if applicable. Discharge Plan Admission Admit Date/Time: 09/02/21 10:26 Primary Reason for Your Visit: Symptomatic bradycardia Attending Provider: Anu Blackman Primary Care Provider: [facility],[place] Consulting Providers: Patel Blanco Instructions Additional Instructions / Restrictions: Take note of changes to your medications. Continue to measure your blood pressure every day Follow-up with your primary care doctor within a week for blood pressure evaluation Discharge Orders/Prescriptions Prescriptions: Continued aspirin 81 MG tablet,chewable 81 mg PO DAILY@0800 potassium chloride 20 meq PO DAILY atorvastatin [Lipitor] 80 MG tablet 80 mg PO DAILY valproic acid 250 MG capsule 250 mg PO DAILY tamsulosin 0.4 MG capsule 0.4 mg PO DAILY Rx Instructions: for eczema paroxetine HCl 20 MG tablet 30 mg PO DAILY metformin 1,000 MG tablet 1,000 mg PO BID losartan 100 MG tablet 100 mg PO DAILY aripiprazole [Abilify] 5 MG tablet 5 mg PO DAILY Myrbetriq 25 MG tablet extended release 24 hr 25 mg PO DAILY cyclobenzaprine 10 MG tablet 10 mg PO BID PRN (Reason: Muscle Spasm) Qty: 12 0RF hydrocodone-acetaminophen 1 TABLET tablet 0.5 - 1 tab PO Q4H PRN PRN (Reason: Pain) 2 Days Qty: 8 0RF carbidopa-levodopa 25-100 mg Tablet 2.5 tab PO 4X/DAY chlorthalidone 25 mg Tablet 25 mg PO DAILY finasteride 5 mg Tablet 5 mg PO DAILY darifenacin 15 mg Tablet Extended Release 24 Hr 15 mg PO DAILY cholecalciferol (vitamin D3) 50 mcg (2,000 unit) Tablet 50 mcg PO DAILY magnesium oxide 420 mg Tablet 420 mg PO DAILY spironolactone 25 mg Tablet 25 mg PO DAILY Rx Instructions: take 1/2 tablet a day triamcinolone acetonide 0.1 % Cream 1 applic TOPICAL BID PRN (Reason: Dry Skin) Discontinued nifedipine 60 MG tablet 60 mg PO DAILY metoprolol succinate 25 MG tablet extended release 24 hr 12.5 mg PO DAILY furosemide 20 mg Tablet 20 mg PO DAILY Referrals / Follow Up: [facility],[place] [Primary Care Provider] - In 1 Week Disposition Disposition (needs filled in before D/C Order can be placed): Home, Self Care
--- NOTE | 2021-09-03 12:03 | PCM.DC.SUM ---
Providers Date of Admission: 09/02/21 Date of Discharge: 09/03/21 Primary Care Physician: [facility] Reason For Visit: SYMPTOMATIC BRADYCARDIA Diagnosis Discharge Diagnosis (1) Parkinson disease: Status: Acute Code(s): G20 - Parkinson's disease (2) HTN (hypertension): Status: Chronic Code(s): I10 - Essential (primary) hypertension (3) Bradycardia with 41-50 beats per minute: Status: Acute Code(s): R00.1 - Bradycardia, unspecified Medications at Discharge Home Medications aspirin 81 mg chewable tablet 81 mg PO DAILY@0800 heart health 02/22/13 potassium chloride 20 meq PO DAILY supplement 02/22/13 aripiprazole 5 mg tablet (Abilify) 5 mg PO DAILY memory 07/16/18 atorvastatin 80 mg tablet (Lipitor) 80 mg PO DAILY cholesterol 07/16/18 losartan 100 mg tablet 100 mg PO DAILY blood pressure 07/16/18 metformin 1,000 mg tablet 1,000 mg PO BID diabetes 07/16/18 mirabegron 25 mg tablet,extended release 24 hr (Myrbetriq) 25 mg PO DAILY bladder 07/16/18 paroxetine HCl 20 mg tablet 30 mg PO DAILY mental health 07/16/18 tamsulosin 0.4 mg capsule 0.4 mg PO DAILY prostate 07/16/18 valproic acid 250 mg capsule 250 mg PO DAILY seizures 07/16/18 cyclobenzaprine 10 mg tablet 10 mg PO BID PRN Muscle Spasm #12 TABLETS 10/11/20 hydrocodone-acetaminophen 5-325mg 5mg-325mg 0.5 - 1 tab PO Q4H PRN PRN Pain 2 days #8 TABLETS 10/11/20 carbidopa 25 mg-levodopa 100 mg tablet 2.5 tab PO 4X/DAY parkinsons 09/01/21 chlorthalidone 25 mg tablet 25 mg PO DAILY blood pressure 09/01/21 cholecalciferol (vitamin D3) 50 mcg (2,000 unit) tablet 50 mcg PO DAILY vitamin 09/01/21 darifenacin 15 mg tablet,extended release 24 hr 15 mg PO DAILY bladder 09/01/21 finasteride 5 mg tablet 5 mg PO DAILY prostate 09/01/21 magnesium oxide 420 mg tablet 420 mg PO DAILY supplement 09/01/21 spironolactone 25 mg tablet 25 mg PO DAILY diuretic 06/20/22 triamcinolone acetonide 0.1 % topical cream 1 applic topical BID PRN Dry Skin 09/01/21 Hospital Course Operations None Procedures None Summary of Care Provided Minutes Spent on Discharge: 35 Hospital Course: 76-year-old male with past medical history hypertension, hyperlipidemia, Parkinson's disease, on metoprolol and nifedipine who comes in with dizziness that started on the day of admission. He presented to the emergency department, his blood pressure was in the 70s systolic. He is also on losartan. Patient had admitted to some diarrhea 3 days prior. He has been eating and drinking well however. He was found to be bradycardic and hypotensive. His blood pressure was 93/46. Patient stated that his blood pressures usually around 100 systolic. Patient had evidence of elevated creatinine of 1.70. He received IV fluid boluses with improvement in his blood pressure. EKG shows sinus bradycardia. Patient was admitted to the PCU and taken off metoprolol and Cardizem. His heart rate continued to improve. He had elevated blood pressure and was started on spironolactone as well as continuing his losartan. His blood pressure is better controlled at time of discharge. He was not discharged on metoprolol or nifedipine. He will follow-up with his primary care doctor within 1 week. He was asked to monitor his blood pressures and heart rate closely. Physical Exam Narrative Physical exam: General: Alert, Oriented x3, Cooperative, No apparent distress HEENT: Atraumatic Oral: Moist Mucosa Neck: Supple Lungs: Clear to auscultation Cardiovascular: HS I+II, regular, no murmurs Abdomen: Bowel Sounds Present, Soft, Non Tender Extremities: No edema Skin: No rashes, No breakdown Neurological: Grossly intact Psych/Mental Status: Appropriate Weight / BMI Weight Weight: 115.3 kg Body Mass Index (BMI) 36.4 ABG / Lab / Microbiology Data Result Diagrams: 09/01/21 17:10 09/02/21 05:55 D/C Instructions Discharge Diet: Low fat / Low cholesterol and 2000 mg Sodium Diet Meaningful Use Info Meaningful Use Diagnoses (Choose all that apply): None applicable Discharge Plan Admission Admit Date/Time: 09/02/21 10:26 Primary Reason for Your Visit: Symptomatic bradycardia Attending Provider: Anu Blackman Primary Care Provider: [facility],[place] Consulting Providers: Patel Blanco Instructions Additional Instructions / Restrictions: Take note of changes to your medications. Continue to measure your blood pressure every day Follow-up with your primary care doctor within a week for blood pressure evaluation Discharge Orders/Prescriptions Prescriptions: Continued aspirin 81 MG tablet,chewable 81 mg PO DAILY@0800 potassium chloride 20 meq PO DAILY atorvastatin [Lipitor] 80 MG tablet 80 mg PO DAILY valproic acid 250 MG capsule 250 mg PO DAILY tamsulosin 0.4 MG capsule 0.4 mg PO DAILY Rx Instructions: for eczema paroxetine HCl 20 MG tablet 30 mg PO DAILY metformin 1,000 MG tablet 1,000 mg PO BID losartan 100 MG tablet 100 mg PO DAILY aripiprazole [Abilify] 5 MG tablet 5 mg PO DAILY Myrbetriq 25 MG tablet extended release 24 hr 25 mg PO DAILY cyclobenzaprine 10 MG tablet 10 mg PO BID PRN (Reason: Muscle Spasm) Qty: 12 0RF hydrocodone-acetaminophen 1 TABLET tablet 0.5 - 1 tab PO Q4H PRN PRN (Reason: Pain) 2 Days Qty: 8 0RF carbidopa-levodopa 25-100 mg Tablet 2.5 tab PO 4X/DAY chlorthalidone 25 mg Tablet 25 mg PO DAILY finasteride 5 mg Tablet 5 mg PO DAILY darifenacin 15 mg Tablet Extended Release 24 Hr 15 mg PO DAILY cholecalciferol (vitamin D3) 50 mcg (2,000 unit) Tablet 50 mcg PO DAILY magnesium oxide 420 mg Tablet 420 mg PO DAILY spironolactone 25 mg Tablet 25 mg PO DAILY Rx Instructions: take 1/2 tablet a day triamcinolone acetonide 0.1 % Cream 1 applic TOPICAL BID PRN (Reason: Dry Skin) Discontinued nifedipine 60 MG tablet 60 mg PO DAILY metoprolol succinate 25 MG tablet extended release 24 hr 12.5 mg PO DAILY furosemide 20 mg Tablet 20 mg PO DAILY Referrals / [facility]: [facility] - In 1 Week Disposition Disposition (needs filled in before D/C Order can be placed): Home, Self Care Charges/Coding Visit Charges Inpatient E&M: 14466 Disch Hosp
[2021-09-03 12:47] LABS: Thyroid Stim Hormone (TSH) 1.42 uIU/mL (0.358-3.74)
== END 2021-09-03 14:37 | disposition home or self-care (01) | DRG 309 ==
LOC: ED 19:11 → PCU 19:48
PROVIDERS: Admitting Provider Family Medicine; Emergency Provider Student in an Organized Health Care Education/Training Program; Visit Provider Internal Medicine
DX: R00.1 Bradycardia, unspecified (principal); N17.9 Acute kidney failure, unspecified; G20 Parkinson's disease; I95.9 Hypotension, unspecified; E11.9 Type 2 diabetes mellitus without complications; F31.9 Bipolar disorder, unspecified; F41.9 Anxiety disorder, unspecified; I10 Essential (primary) hypertension; E78.00 Pure hypercholesterolemia, unspecified; G47.30 Sleep apnea, unspecified; Z87.891 Personal history of nicotine dependence; Z87.442 Personal history of urinary calculi; F43.10 Post-traumatic stress disorder, unspecified; Z79.82 Long term (current) use of aspirin; Z79.899 Other long term (current) drug therapy; Z79.84 Long term (current) use of oral hypoglycemic drugs; R55 Syncope and collapse
CPT/HCPCS: 36415; 71045; 80048; 80164; 83880; 84443; 84484; 85025; 93005; 94660; 99285; J7030; A4216

== ENCOUNTER 2022-04-05 19:38 | Emergency (ER) | payer OTHER, SELFPAY ==
[2022-04-05 19:38] VITALS: BP 199/112; PULSE 108; RESP 16; TEMP 36.9; O2SAT 95; BMI 35.4
--- NOTE | 2022-04-05 19:53 | CT_ITS ---
STUDY: CT BRAIN WITHOUT CONTRAST REASON FOR EXAM: Male, 76 years old. Hypertension TECHNIQUE: Transaxial CT imaging of the brain was performed without administration of intravenous contrast material. Individualized dose optimization techniques were used for this CT. COMPARISON: 5.19 FINDINGS: Normal calvarium. Normal soft tissues. Normal size ventricles and extra-axial spaces for the patient''s age. There are areas of decreased attenuation within the white matter tracts of the supratentorial brain, consistent with microvascular disease changes. Normal basal ganglia and thalami. Normal brainstem. Normal cerebellum. There is no intracranial hemorrhage. There are no findings of an acute ischemic infarction. Normal visualized paranasal sinuses. ASPECTS 10 CT/Brain/Head without Contrast IMPRESSION: There are no acute intracranial findings. Electronically Signed: Raymond Chacon MD at 20:48 EST ,
--- NOTE | 2022-04-05 19:56 | EKG12_ITS ---
Test Reason : GEN ILL Blood Pressure : / mmHG Vent. Rate : 098 BPM Atrial Rate : 098 BPM P-R Int : 174 ms QRS Dur : 138 ms QT Int : 394 ms P-R-T Axes : 059 -02 035 degrees QTc Int : 503 ms Normal sinus rhythm Right bundle branch block Abnormal ECG Confirmed by ROBERT OREILLY, QUIN ([id number]), metropolitan editor GABRIELA FRANCOIS ([id number]) on 04/06/2022 10:57:07 AM Referred By: Confirmed By:QUIN JONES MD
--- NOTE | 2022-04-05 19:57 | RAD_ITS ---
INDICATION: CAD EXAMINATION/TECHNIQUE: X-RAY - XR Chest 1 View COMPARISON: 09/01/2021. FINDINGS: The lungs are clear. Tortuous and calcified thoracic aorta. The heart is not enlarged. No pleural effusion or pneumothorax. Degenerative changes of the thoracic spine. RAD/Chest 1 View (Portable) IMPRESSION: No acute radiographic abnormalities. Electronically Signed: Mustapha Andrade MD at 20:27 EST ,
[2022-04-05 19:59] VITALS: BP 165/71; PULSE 101; RESP 20
--- NOTE | 2022-04-05 20:00 | EX.ED.DYSGE1 ---
HPI History of Present Illness Chief Complaint: General Illness Narrative Narrative: 76-year-old male past medical history of hypertension noticed around noon that he felt lightheaded with a slight headache. He states that his heart rate was high, above 100, and he had elevated blood pressure. He relates history that he was admitted previously to the hospital here and he had low blood pressure. The business intelligence administrator here took him off all his medications and slowly added some back. He is not quite sure what he takes for blood pressure control but states he took his blood pressure after 12:00 in the afternoon, almost 8 hours ago and noticed it was high. He continues to have lightheadedness and a high heart rate. He denies any nausea or vomiting. No shortness of breath. No reasons for dehydration except loose stool/diarrhea. He was concerned mainly about his elevated blood pressure, and his high heart rate. [facility] Medical History Anxiety CPAP (continuous positive airway pressure) dependence Depression Diabetes Former smoker HTN (hypertension) Hypercholesteremia Kidney stones PTSD (post-traumatic stress disorder) Sleep apnea Home Medications aspirin 81 mg chewable tablet 81 mg PO DAILY@0800 heart health 02/22/13 [History Last Taken 09/01/21] potassium chloride 20 meq PO DAILY supplement 02/22/13 [History Last Taken 09/01/21] atorvastatin 80 mg tablet (Lipitor) 80 mg PO DAILY cholesterol 07/16/18 [History Last Taken 08/31/21] losartan 100 mg tablet 100 mg PO DAILY blood pressure 07/16/18 [History Last Taken 09/01/21] metformin 1,000 mg tablet 1,000 mg PO BID diabetes 07/16/18 [History Last Taken 09/01/21] mirabegron 25 mg tablet,extended release 24 hr (Myrbetriq) 25 mg PO DAILY bladder 07/16/18 [History Last Taken 09/01/21] paroxetine HCl 20 mg tablet 30 mg PO DAILY mental health 07/16/18 [History Last Taken 09/01/21] tamsulosin 0.4 mg capsule 0.4 mg PO DAILY prostate 07/16/18 [History Last Taken 09/01/21] hydrocodone-acetaminophen 5-325mg 5mg-325mg 0.5 - 1 tab PO Q4H PRN PRN Pain 2 days #8 TABLETS 10/11/20 [Rx Last Taken Unknown] chlorthalidone 25 mg tablet 25 mg PO DAILY blood pressure 09/01/21 [History Last Taken Unknown] cholecalciferol (vitamin D3) 50 mcg (2,000 unit) tablet 50 mcg PO DAILY vitamin 09/01/21 [History Last Taken Unknown] darifenacin 15 mg tablet,extended release 24 hr 15 mg PO DAILY bladder 09/01/21 [History Last Taken Unknown] finasteride 5 mg tablet 5 mg PO DAILY prostate 09/01/21 [History Last Taken Unknown] magnesium oxide 420 mg tablet 420 mg PO DAILY supplement 09/01/21 [History Last Taken Unknown] spironolactone 25 mg tablet 25 mg PO DAILY diuretic 09/01/21 [History Last Taken Unknown] triamcinolone acetonide 0.1 % topical cream 1 applic topical BID PRN Dry Skin 09/01/21 [History Last Taken Unknown] cyclobenzaprine 10 mg tablet 25 mg PO BID PRN Muscle Spasm 04/05/22 [History Last Taken Unknown] furosemide 20 mg tablet (Lasix) 20 mg PO DAILY 04/05/22 [History Last Taken Unknown] Allergy/AdvReac Type Severity Reaction Status Date / Time No Known Allergies Allergy Verified 04/05/22 20:05 Surgical History History of cholecystectomy Social History Smoking Status: Former smoker ROS ROS ED ROS Narrative Constitutional: No fever, no chills. HEENT: No sore throat. No neck pain. No loss of vision. No rhinorrhea. Cardiovascular: No chest pain. No palpitations, but noticed high heart rate. No pedal edema. Respiratory: No cough, no shortness of breath. Abdominal: No abdominal pain. No nausea. No vomiting. Genitourinary: No dysuria. No hematuria. Musculoskeletal: No myalgias. No arthralgias. Neurologic: Mild headaches. No dizziness. Positive lightheadedness. Skin: No rash. No change in color. Psychiatric: No depression. No anxiety. EXAM Physical Exam Narrative Exam Narrative: Afebrile. Vital signs noted. Noted blood pressure of 199/112 HEENT: Normocephalic. Atraumatic. PERRL, EOMI. Neck soft and supple. No point tenderness or step off. Cardiovascular: Regular rate and rhythm with intermittent tachycardia. No murmurs, rubs, or gallops appreciated. Respiratory: No tachypnea. Lungs clear to auscultation bilaterally. Gastrointestinal: Abdomen soft, nontender, with normoactive bowel sounds. No rebound or guarding. Neurological: Awake. Alert. Nonfocal, nonlateralizing. Skin: No rash. Normal color. No pallor. Musculoskeletal: No pedal edema. Full range of motion extremities. Const Vital Signs: 04/05/22 19:38 04/05/22 19:59 04/05/22 20:06 Temperature 98.4 F Temperature Source Temporal Pulse Rate 108 H 101 H Respiratory Rate 16 20 H Respiratory Effort Normal Non-Labored Respiratory Pattern Normal Blood Pressure 199/112 H 165/71 H Blood Pressure Mean 141 102 Pulse Ox 95 Oxygen Delivery Method Room Air Room Air 04/05/22 20:41 04/05/22 21:36 Temperature Temperature Source Pulse Rate 97 87 Respiratory Rate 28 H 23 H Respiratory Effort Respiratory Pattern Blood Pressure 121/78 H 163/85 H Blood Pressure Mean 92 111 Pulse Ox 93 Oxygen Delivery Method Room Air MDM MDM MDM Narrative Medical decision making narrative: Comprehensive work-up was pursued. In the differential diagnosis is intracranial hemorrhage from hypertension. He is only slightly tachycardic, and I will look for signs of dehydration with basic laboratory work including CBC and CMP. We will also obtain a troponin. EKG will be obtained to rule out dysrhythmia such as atrial fibrillation. I did review his inpatient hospital discharge instructions. Throughout his course, he was hypotensive and bradycardic anywhere from 40 to 51 bpm. He was taken off his metoprolol 12.5 mg and Cardizem. His losartan and spironolactone was added back. EKG was obtained and interpreted by myself which demonstrates normal sinus rhythm at 98 bpm without ectopy or acute ST changes. No STEMI. Initially, his blood pressure was 199/112, but has come down to 163/85. He has no longer tachycardic. I reviewed his laboratory work and he has a normal white count of 9.3 with hemoglobin 15.4, hematocrit 44.1. Platelet count normal at 202. Potassium slightly low at 3.4 which I think is nonspecific, BUN of 24 and a creatinine of 1.07. He has slightly elevated AST and ALT at 50 and 92 respectively. High-sensitivity troponin is 42 and below the upper limit. This is a 6-hour troponin. CT of the brain was obtained and I reviewed the radiology report, there is no acute process or hemorrhage. Chest x-ray in 1 view was interpreted by myself and I see no evidence of pneumothorax or infiltrate. I reviewed the radiology report and agree. They confirm that there is no acute process. At this point in time, I will leave any medication adjustments to his primary care provider or the business intelligence administrator that he sees [facility]. I see no emergent reason to add any other medication. His blood pressure has come down to 145/82 and he gets an intermittent tachycardia just above 100. I feel he can be discharged safely home with follow-up. Return instructions to the emergency department were reviewed. Disposition is discharged home in stable condition. Lab Data Attestation: I reviewed the patient's lab results. Labs: Laboratory Results - last 24 hr 04/05/22 04/05/22 19:57 19:57 WBC 9.3 RBC 5.18 Hgb 15.4 Hct 44.1 MCV 85.1 MCH 29.7 MCHC 34.9 RDW Std Deviation 38.2 RDW Coeff of Pat 12.4 Plt Count 202 MPV 9.1 Immature Gran % (Auto) 0.300 Neut % (Auto) 58.2 Lymph % (Auto) 27.8 Robertson % (Auto) 7.5 Eos % (Auto) 5.9 H Baso % (Auto) 0.3 Absolute Neuts (auto) 5.4 Absolute Lymphs (auto) 2.57 Nucleated RBC % 0 Sodium 138 Potassium 3.4 L Chloride 102 Carbon Dioxide 26.0 Anion Gap 10 BUN 24 H Creatinine 1.07 Estim Creat Clear Calc 60.64 Est GFR (MDRD) Af Amer 86 Est GFR (MDRD) Non-Af 71 BUN/Creatinine Ratio 22.4 H Glucose 120 H Calcium 9.4 Total Bilirubin 0.70 AST 50 H ALT 92 H Alkaline Phosphatase 62 Troponin I High Sens 42 Total Protein 7.7 Albumin 3.7 Globulin 4.0 Albumin/Globulin Ratio 0.9 Radiography Diagnostic Testing: Clinical Impression(s) from Imaging Studies Brain CT 04/05/22 19:53 IMPRESSION: There are no acute intracranial findings. Electronically Signed: Raymond Chacon MD at 20:48 EST , Chest X-Ray 04/05/22 19:57 IMPRESSION: No acute radiographic abnormalities. Electronically Signed: Mustapha Andrade MD at 20:27 EST , Discharge Plan Triage Chief Complaint: General Illness ED Provider: Vinh Chacon Dx/Rx/DC Orders Clinical Impression: HTN (hypertension), Tachycardia Instructions: Understanding Tachycardia, ED High Blood Pressure Hypertension Prescriptions: No Action aspirin 81 MG tablet,chewable 81 mg PO DAILY@0800 potassium chloride 20 meq PO DAILY atorvastatin [Lipitor] 80 MG tablet 80 mg PO DAILY tamsulosin 0.4 MG capsule 0.4 mg PO DAILY Rx Instructions: for eczema paroxetine HCl 20 MG tablet 30 mg PO DAILY metformin 1,000 MG tablet 1,000 mg PO BID losartan 100 MG tablet 100 mg PO DAILY Myrbetriq 25 MG tablet extended release 24 hr 25 mg PO DAILY hydrocodone-acetaminophen 1 TABLET tablet 0.5 - 1 tab PO Q4H PRN PRN (Reason: Pain) 2 Days Qty: 8 0RF chlorthalidone 25 mg Tablet 25 mg PO DAILY finasteride 5 mg Tablet 5 mg PO DAILY darifenacin 15 mg Tablet Extended Release 24 Hr 15 mg PO DAILY cholecalciferol (vitamin D3) 50 mcg (2,000 unit) Tablet 50 mcg PO DAILY magnesium oxide 420 mg Tablet 420 mg PO DAILY spironolactone 25 mg Tablet 25 mg PO DAILY Rx Instructions: take 1/2 tablet a day triamcinolone acetonide 0.1 % Cream 1 applic TOPICAL BID PRN (Reason: Dry Skin) cyclobenzaprine 10 MG tablet 25 mg PO BID PRN (Reason: Muscle Spasm) furosemide [Lasix] 20 mg Tablet 20 mg PO DAILY [facility] [Primary [facility] Provider] - 1-2 Days if not improving Disposition Disposition: Home, Self Care
[2022-04-05 20:12] LABS: Absolute Lymphocyte Count 2.57 X10^3/uL (0.83-4.51); Absolute Neutrophil Count 5.4 X10^3/uL (2.0-7.7); Basophil# 0.03 X10^3/uL; Basophil% 0.3 % (0-1); Eosinophil# 0.55 X10^3/uL; Eosinophils% 5.9 % (0-5); Hematocrit 44.1 % (40-54); Hemoglobin 15.4 g/dL (13.0-16.5); Lymphocyte # 2.57 X10^3/ul (0.83-4.51); Lymphocyte % 27.8 % (19-41); Mean Corp Hgb Conc 34.9 g/dL (32-36); Mean Corpuscular Hgb 29.7 pg (27.0-32.0); Mean Corpuscular Volume 85.1 fL (80-94); Mean Platelet Vol. 9.1 fl (6.2-12.0); Monocyte# 0.69 X10^3/uL; Monocyte% 7.5 % (0-10); NRBC Flagged by Analyzer 0 % (0-5); Neutrophil # 5.39 X10^3/uL (2.7-7.7); Neutrophil % 58.2 % (47-70); Platelet Count 202 K/mm3 (150-450); RBC Distribution Width CV 12.4 % (11.6-14.6); RBC Distribution Width SD 38.2 fl (35.1-43.9); Red Blood Count 5.18 M/mm3 (4.6-6.2); White Blood Count 9.3 K/mm3 (4.4-11.0)
[2022-04-05 20:32] LABS: ALB/GLOB Ratio 0.9 RATIO (0.9-2.4); AST(SGOT) 50 U/L (15-37); Alanine Aminotransfer ALT/SGPT 92 U/L (16-61); Albumin, Serum 3.7 g/dL (3.2-5.0); Alkaline Phosphatase 62 U/L (45-117); Anion Gap 10 (5-15); BUN 24 mg/dL (7-18); BUN/Creat Ratio 22.4 RATIO (10-20); Calcium,Total 9.4 mg/dL (8.5-10.1); Chloride 102 mmol/L (98-107); Creatinine, Serum 1.07 mg/dL (0.70-1.30); EST Glomerular Filtration Rate 71 mL/min (>60); Est Glom Filt Rate - Afr Amer 86 mL/min (>60); Estimated Creatinine Clearance 60.64 ml/min; Glucose 120 mg/dL (74-106); Potassium 3.4 mmol/L (3.5-5.1); Protein, Total 7.7 g/dL (6.4-8.2); Sodium Level 138 mmol/L (136-145); Troponin-I HS 42 pg/mL (3.0-78.0)
[2022-04-05 20:41] VITALS: BP 121/78; PULSE 97; RESP 28
[2022-04-05 21:36] VITALS: BP 163/85; PULSE 87; RESP 23; O2SAT 93
[2022-04-05 21:46] VITALS: BP 163/85; PULSE 87; RESP 23; O2SAT 93
== END 2022-04-05 21:52 | disposition home or self-care (01) ==
PROVIDERS: Emergency Provider Emergency Medicine; Visit Provider Emergency Medicine
DX: I10 Essential (primary) hypertension (principal); E11.9 Type 2 diabetes mellitus without complications; E78.00 Pure hypercholesterolemia, unspecified; R00.0 Tachycardia, unspecified; Z87.891 Personal history of nicotine dependence; Z79.899 Other long term (current) drug therapy; Z79.82 Long term (current) use of aspirin; Z79.84 Long term (current) use of oral hypoglycemic drugs
CPT/HCPCS: 70450; 71045; 80053; 84484; 85025; 93005; 99283; J7030; A4216

== ENCOUNTER 2025-02-12 03:10 | Emergency (ER) | payer MEDICARE, SELFPAY ==
[2025-02-12 03:11] VITALS: BP 147/106; PULSE 79; RESP 27; TEMP 36.7; O2SAT 90; BMI 34.1
[2025-02-12 03:15] VITALS: BP 147/106; PULSE 79; RESP 27; TEMP 36.7; O2SAT 90
--- NOTE | 2025-02-12 03:32 | EX.ED.VIS.UR ---
HPI HPI - URI History of Present Illness Chief Complaint: Cold Sx Informant: patient and spouse/S.O. Onset/Context/Timing Onset: Today and Yesterday Context: Gradual Onset Timing: Continuous Current Severity: Moderate Maximum Severity: Moderate Associated Symptoms Associated Symptoms: Positive for Shortness of Breath and Productive Cough (White to green phlegm. No hemoptysis. No chest pain. No fever.) Narrative Narrative: 78-year-old male history of diabetes, sleep apnea and hypertension. URI symptoms since Wednesday. Said he has had a cough of white to green phlegm. No hemoptysis. No chest pain. No fever. Mild sore throat. But able to swallow. Has felt short of breath his pulse ox at home was in the 70s. He is on CPAP at home for sleep apnea. Denies any recent hospitalization. No leg pain or swelling. Prior similar symptoms: Yes Recent Illness/Hospitalization: No ROS ROS ED ROS Narrative Cough. Shortness of breath. Wheezing. Sore throat. Constitutional Constitutional ED: Denies chills or fever(s) Eyes Eyes: Denies blurry vision ENT ENT ED: Reports sore throat; Denies ear pain or rhinorrhea Cardiovascular Cardiovascular: Denies chest pain Respiratory/Chest Respiratory/Chest: Reports cough and dyspnea Gastrointestinal Gastrointestinal: Denies abdominal pain, constipation, diarrhea, melena, nausea or vomiting Genitourinary Genitourinary ED: Denies dysuria or hematuria Musculoskeletal Musculoskeletal: Denies arthralgias or back pain Integumentary Denies abscess Neurologic Neurologic: Denies headache(s) Psychiatric Psychiatric: Denies anxiety or depression Endocrine Endocrinology: Denies cold intolerance Hematologic/Lymphatic Hematologic/Lymphatic: Denies easy bleeding Allergic/Immunologic Allergic/Immunologic ED: Denies mouth swelling, tongue swelling or urticaria [facility] Medical History PTSD (post-traumatic stress disorder) Anxiety Depression Diabetes Kidney stones Former smoker CPAP (continuous positive airway pressure) dependence Sleep apnea Hypercholesteremia HTN (hypertension) Home Medications ?Medication ?Instructions ?Recorded ?Last Taken ?Type aspirin 81 mg chewable tablet 81 mg PO DAILY@0800 heart health 02/22/13 09/01/21 History losartan 100 mg tablet 100 mg PO DAILY blood pressure 07/16/18 09/01/21 History tamsulosin 0.4 mg capsule 0.8 mg PO DAILY prostate 07/16/18 09/01/21 History chlorthalidone 25 mg tablet 25 mg PO DAILY blood pressure 09/01/21 Unknown History cholecalciferol (vitamin D3) 50 50 mcg PO DAILY vitamin 09/01/21 Unknown History mcg (2,000 unit) tablet darifenacin 15 mg tablet,extended 15 mg PO DAILY bladder 09/01/21 Unknown History release 24 hr finasteride 5 mg tablet 5 mg PO DAILY prostate 09/01/21 Unknown History magnesium oxide 420 mg tablet 420 mg PO DAILY supplement 09/01/21 Unknown History spironolactone 25 mg tablet 25 mg PO DAILY diuretic 09/01/21 Unknown History acetaminophen 325 mg capsule 650 mg PO Q4H PRN fever or pain 02/12/25 Unknown History albuterol sulfate 90 mcg/actuation 2 inh inhalation Q4H PRN shortness 02/12/25 Unknown Rx aerosol inhaler of breath or wheezing #6.7 grams amlodipine 2.5 mg tablet 2.5 mg PO DAILY 02/12/25 Unknown History aripiprazole 10 mg tablet (Abilify) 10 mg PO DAILY 02/12/25 Unknown History atorvastatin 40 mg tablet (Lipitor) 40 mg PO QHS 02/12/25 Unknown History calcium carbonate (Calcium Antacid) 300 mg PO BID 02/12/25 Unknown History carbidopa ER 48.75 mg-levodopa 195 3 cap PO 4X/DAY 02/12/25 Unknown History mg capsule,extended release clindamycin phosphate 1 % topical 1 applic topical BID 02/12/25 Unknown History swab (Clindacin P) ketoconazole 2 % topical cream 1 applic topical DAILY 02/12/25 Unknown History melatonin 3 mg capsule 6 mg PO QHS 02/12/25 Unknown History metformin 750 mg tablet,extended 1,500 mg PO QDAY 02/12/25 Unknown History release 24 hr metoprolol succinate 25 mg capsule 75 mg PO DAILY 02/12/25 Unknown History sprinkle, ext. release 24 hr mirabegron 50 mg tablet,extended 50 mg PO DAILY 02/12/25 Unknown History release 24 hr paroxetine HCl 30 mg tablet 30 mg PO DAILY 02/12/25 Unknown History potassium chloride 20 mEq 40 meq PO BID 02/12/25 Unknown History tablet,extended release(part/cryst) (Klor-Con M) prednisone 20 mg tablet 40 mg (2 x 20 mg) PO DAILY 6 days 02/12/25 Unknown Rx #12 tabs primidone 50 mg tablet 100 mg PO Q8H 02/12/25 Unknown History semaglutide 0.25 mg or 0.5 mg (2 0.5 mg subcut QWEEK 02/12/25 Unknown History mg/3 mL) subcutaneous pen injector (Ozempic) Allergy/AdvReac Type Severity Reaction Status Date / Time No Known Allergies Allergy Verified 02/12/25 03:12 Surgical History History of cholecystectomy Social History Smoking Status: Former smoker EXAM Physical Exam Narrative Exam Narrative: 79-year-old male sitting upright in bed. Dry cough. at bedside. Vital signs are stable. Pulse ox 90% on room air borderline hypoxia. No distress. H EENT exam pupils round react light. Mildly dry mucous membranes. Posterior pharynx minimal erythema no exudate. Able to handle his own secretions. No drooling or stridor. Neck nontender no lymphadenopathy. Trachea midline. No meningismus. Back nontender. Lungs few scattered expiratory wheezes in the bases. No rales or rhonchi. Equal symmetric. Heart regular rhythm rate about 80 no murmur. Chest wall and ribs nontender. Abdomen soft nontender. Moving all 4 extremities. Normal strength. Calves are nontender without edema or cords. Neurologically he is awake alert. Answering questions following commands. Const Vital Signs: 02/12/25 03:11 02/12/25 03:11 02/12/25 03:15 Temperature 98.1 F 98.1 F Temperature Source Oral Oral Pulse Rate 79 79 Respiratory Rate 27 H 27 H Respiratory Effort Short of Breath Respiratory Pattern Blood Pressure 147/106 H 147/106 H Blood Pressure Mean 119 119 Pulse Ox 90 90 Oxygen Delivery Method Room Air 02/12/25 03:53 Temperature Temperature Source Pulse Rate 78 Respiratory Rate 16 Respiratory Effort Respiratory Pattern Normal Blood Pressure Blood Pressure Mean Pulse Ox Oxygen Delivery Method MDM MDM MDM Narrative Medical decision making narrative: 79-year-old male with what appears to be viral URI. Due to shortness of breath obtain a chest x-ray screening labs. Will be given IV fluids because clinically he looks mildly dehydrated and feels dehydrated. I suspect this to be viral but in the differential also includes pneumonia versus other etiologies.Patient also be given a DuoNeb aerosol due to his expiratory wheezing. Repeat exam patient doing well at 4:20 AM. Awaiting COVID and flu results. Patient doing well 4:58 AM. He is comfortable being discharged home we discussed all his test results. He placed on prednisone 40 mg a day for 1 week for his wheezing. An inhaler as needed. He will be given his first dose of steroid here. Prescriptions to be sent to his pharmacy. Both he and his are comfortable with him being discharged home. He did have improvement with the aerosol. History & Record Review Discussion w/independent historian: Patient and Family Additional record(s) reviewed:: Prior outpatient record, Prior ED visit and Prior labs Lab Data Attestation: I reviewed the patient's lab results. Lab results narrative: CBC unremarkable. White count 9.1. H&H of 13 and 39. Platelets 171. Chemistry shows sodium 131. Gap 13. BUN and creatinine are normal at 15 and 0.9. Glucose 188. Chest x-ray unremarkable. COVID, flu and RSV negative. Labs: Laboratory Results - last 24 hr 02/12/25 03:17 WBC 9.1 RBC 4.54 L Hgb 13.3 Hct 39.4 L MCV 86.8 MCH 29.3 MCHC 33.8 RDW Std Deviation 39.6 RDW Coeff of Pat 12.5 Plt Count 171 MPV 9.4 Immature Gran % (Auto) 0.900 Neut % (Auto) 65.1 Lymph % (Auto) 19.1 Jay % (Auto) 9.1 Eos % (Auto) 5.4 H Baso % (Auto) 0.4 Absolute Neuts (auto) 6.0 Absolute Lymphs (auto) 1.75 Nucleated RBC % 0 Sodium 131 L Potassium 4.1 Chloride 95 L Carbon Dioxide 21.8 Anion Gap 13 BUN 15 Creatinine 0.95 Estim Creat Clear Calc 77.52 Est GFR (MDRD) Non-Af 82 BUN/Creatinine Ratio 15.4 Glucose 188 H Calcium 9.0 Radiography Chest X-Ray - ED: 2 View, Read by ED Physician, Normal, Heart, Lungs, Mediastinum, Bony Structures, No Acute Disease and Chronic Changes Diagnostic Testing: Clinical Impression(s) from Imaging Studies Chest X-Ray 02/12/25 03:40 IMPRESSION: NO ACUTE FINDINGS. Reading Location: [facility] Chest x-ray, 2 views, AP and lateral, interpreted by myself shows no acute abnormality. Normal cardiac silhouette. Normal lung garner. Chronic changes. No pneumonia. Discharge Plan Triage Chief Complaint: Cold Sx ED Provider: Myron Church Dx/Rx/DC Orders Clinical Impression: Viral URI, History of diabetes mellitus, HTN (hypertension) Instructions: ED URI, Viral W/ Wheezing (Adult) Prescriptions: New prednisone 20 mg tablet 40 mg PO DAILY 6 Days Qty: 12 0RF albuterol sulfate 90 mcg/actuation HFA aerosol inhaler 2 inh inhalation Q4H PRN (Reason: shortness of breath or wheezing) Qty: 6.7 0RF Rx Instructions: 2 puffs as needed for wheezing. No Action aspirin 81 MG tablet,chewable 81 mg PO DAILY@0800 tamsulosin 0.4 MG capsule 0.8 mg PO DAILY losartan 100 MG tablet 100 mg PO DAILY chlorthalidone 25 mg Tablet 25 mg PO DAILY finasteride 5 mg Tablet 5 mg PO DAILY darifenacin 15 mg Tablet Extended Release 24 Hr 15 mg PO DAILY cholecalciferol (vitamin D3) 50 mcg (2,000 unit) Tablet 50 mcg PO DAILY magnesium oxide 420 mg Tablet 420 mg PO DAILY spironolactone 25 mg Tablet 25 mg PO DAILY Rx Instructions: take 1/2 tablet a day acetaminophen 325 mg capsule 650 mg PO Q4H PRN (Reason: fever or pain) amlodipine 2.5 mg tablet 2.5 mg PO DAILY aripiprazole [Abilify] 10 mg tablet 10 mg PO DAILY atorvastatin [Lipitor] 40 mg tablet 40 mg PO QHS Calcium Antacid 300 mg (750 mg) tablet,chewable 300 mg PO BID carbidopa-levodopa 48.75-195 mg capsule, extended release 3 cap PO 4X/DAY Rx Instructions: divide evenly over waking hours clindamycin phosphate [Clindacin P] 1 % swab 1 applic topical BID melatonin 3 mg capsule 6 mg PO QHS metformin 750 mg tablet extended release 24 hr 1,500 mg PO QDAY metoprolol succinate 25 mg capsule,sprinkle,ER 24hr 75 mg PO DAILY mirabegron 50 mg tablet extended release 24 hr 50 mg PO DAILY paroxetine HCl 30 mg tablet 30 mg PO DAILY potassium chloride [Klor-Con M20] 20 mEq tablet,ER particles/crystals 40 meq PO BID primidone 50 mg tablet 100 mg PO Q8H Rx Instructions: administer on days 7-9 Ozempic 0.25 mg or 0.5 mg (2 mg/3 mL) pen injector 0.5 mg subcut QWEEK ketoconazole 2 % cream 1 applic topical DAILY [facility] [facility] [facility] [facility] [Primary Care Provider, None] - 1 Week if not improving Activity Restrictions/Additional Instructions: Plenty of fluids and rest. Use the inhaler 2 puffs as needed for wheezing. The steroid prednisone 40 mg a day take in the morning for the next 6 days. This should help your breathing and decrease the wheezing. It may increase your blood sugars. That will improve when you are done with the steroid. [facility] return if a lot worse. Print Language: Azeri Disposition Disposition: Home, Self Care
[2025-02-12] MEDS: 0.9% Normal Saline (1000mL) 1,000 ML 1000 ML IV (03:33)
[2025-02-12 03:37] LABS: Hematocrit 39.4 % (40-54); Hemoglobin 13.3 g/dL (13.0-16.5); Immature Granulocytes Count 0.080 X10^3/uL (0.0-0.0); Mean Corp Hgb Conc 33.8 g/dL (32-36); Mean Corpuscular Volume 86.8 fL (80-94); Mean Platelet Vol. 9.4 fl (6.2-12.0); NRBC Flagged by Analyzer 0 % (0-5); Platelet Count 171 K/mm3 (150-450); RBC Distribution Width CV 12.5 % (11.6-14.6); RBC Distribution Width SD 39.6 fl (35.1-43.9); Red Blood Count 4.54 M/mm3 (4.6-6.2); White Blood Count 9.1 K/mm3 (4.4-11.0)
--- OUTSIDE RECORDS SUMMARY | 2025-02-12 03:39 | XMS RPT_ITS | CCD ---
Author Organization [facility] Care Team Providers Care Senior Network Engineer Name Role Phone 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 Primary Care Provider SYSTEM, PROVIDER NOT IN Attending Unavaila ble JAMILAH, REMIGIO L Primary Care Unavailable SYSTEM, PROVIDER NOT IN Referring Unavaila ble DESISABINA BOX Referring Unavail able DESISABINA Admitting Unavail able JAMILAH, REMIGIO L Primary Care Unavailable JAMILAH, REMIGIO L Primary Care Unavailable VIAU, JARED CALDERÓN Attending Unavailable VIAU, JARED CALDERÓN Referring Unavailable JAMILAH, REMIGIO L Primary Care Unavailable DESISABINA BOX Admitting Unavail able DESISABINA BOX Attending Unavail able [facility] Provider UnavailDr. Remberto Hurtado Emergency Provider [phone] Dr. Patel Blanco Admit Provider Dr. Patel Blanco Attending Provider Dr. Patel Blanco Other Provider Dr. Anu Blackman Attending Provider Dr. Anu Blackman Other Provider Patel Blanco Ad[facility] Unavailable Anu Blackman Attending Unavailable Patel Blanco Consulting Unavailable Nubig springsAnu kearns Consulting [facility]available [facility] Unavailable Vinh Chacon Attending [facility] Unavailable Anu Blackman Attending Unavailable Patel Blanco Admitting Unavailable Patel Blanco Consulting Unavailable Patel Blanco Attending [facility] Unavailable Patel Blanco Admitting Unavailable Patel Blanco Consulting Unavailable Unavailable Primary Care Provider UnavailKAIT Blair Attending Unavailable Unavailable Primary Care Provider UnavailPRICE Oshea Attending Unavailable JAMILAH, REMIGIO L Primary Care Unavailable KAIT HEWITT Attending Unavailable Medications Current Medications Medication Drug Class(es) Dates Sig (Normalized) Sig (Original) acetaminophen 325 mg oral tablet (3 sources) take 2 tablets by mouth every six hours as needed acetaminophen (TylenoL) 325 mg tablet Take 2 tablets (650 mg) by mouth every 6 hours if needed for mild pain (1 - 3) or moderate pain (4 - 6). Active acetaminophen 325 mg / HYDROcodone bitartrate 5 mg oral tablet (2 sources) Opioid Agonist Start: 10-11-2020 take 1 tablet by mouth every four hours as needed Hydrocodone-Acetam inophen Active 0.5 - 1 TABLET PO EVERY 4 HOURS NEEDED 8 October 11, 2020 amLODIPine 2.5 mg oral tablet (2 sources) Dihydropyridine Calcium Channel Casie Start: 01-11-2024 take 1 tablet by mouth once daily amLODIPine (Norvasc) 2.5 mg tablet Take 1 tablet (2.5 mg) by mouth once daily. 01/11/2024 Active ARIPiprazole 5 mg oral tablet (11 sources) Atypical Antipsychotic Start: 07-16-2018 take 1 tablet by mouth once daily Aripiprazole (Abilify) 5 MG tablet Active 5 MG PO DAILY July 16, 2018 12:00am take 1 tablet by mouth once rena y ARIPiprazole (Abilify) 10 mg tablet Take 1 tablet (10 mg) by mouth once daily. Active aspirin 81 mg chewable tablet (13 sources) Platelet Aggregation Inhibitor, Nonsteroidal Anti-inflammatory Drug Start: 02-22-2013 take 81 mg by mouth once daily Aspirin Active 81 MG PO DAILY@0800 February 22, 2013 12:00am take 1 tablet by mouth once rena y aspirin 81 mg EC tablet Take 1 tablet (81 mg) by mouth once daily. Active atorvastatin 40 mg oral tablet (12 sources) HMG-CoA Reductase Inhibitor Start: 01-11-2024 take 1 tablet by mouth once daily at bedtime atorvastatin (Lipitor) 40 mg tablet Take 1 tablet (40 mg) by mouth once daily at bedtime. 01/11/2024 Active Start: 07-16-2018 take 1 tablet by tremayne th once daily Atorvastatin (Lipitor) 80 MG tablet Active 80 MG PO DAILY July 15, 2018 11:00pm take 1 tablet by tremayne th once daily atorvastatin (LIPITOR) 40 MG tablet Take 40 mg by mouth daily . 0 Active 8 hr carbidopa 48.75 mg / levodopa 195 mg extended release oral capsule (4 sources) Aromatic Amino Acid Decarboxylation Inhibitor, Aromatic Amino Acid Start: 06-07-2023 End: 06-07-2024 take 3 capsules by mouth three times daily Rytary 48.75-195 mg capsule TAKE 3 CAPSULES BY MOUTH THREE TIMES A DAY FOR PARKINSON SYMPTOMS (DO NOT CRUSH; SWALLOW WHOLE) 06/07/2023 Active Start: 09-01-2021 take 2.5 tablets by mouth four times daily Carbidopa-Levodopa Active 2.5 TABLET PO 4 TIMES DAILY September 01, 2021 12:00am take 3 capsules by m outh four times daily carbidopa-levodopa (Rytary) 48.75-195 mg capsule Take 3 capsules by mouth 4 times a day. Active chlorthalidone 25 mg oral tablet (12 sources) Thiazide-like Diuretic Start: 07-20-2023 chlorthalidone (Hygroton) 25 mg tablet Take 1 tablet (25 mg) by mouth. 07/20/2023 Active Start: 09-01-2021 take 25 mg by mouth once daily Chlorthalidone Active 25 MG PO DAILY August 31, 2021 11:00pm take 1 tablet by tremayne th once daily chlorthalidone (HYGROTEN) 25 MG tablet Take 25 mg by mouth daily . 0 Active cholecalciferol 0.05 mg oral tablet (12 sources) Vitamin D Start: 01-18-2024 cholecalcifero l (Vitamin D-3) 50 MCG (2000 UT) tablet Take 1 tablet (50 mcg) by mouth. 01/18/2024 Active Start: 09-01-2021 take 50 ug by mouth once daily Cholecalciferol (Vitamin D3) Active 50 MCG PO DAILY August 31, 2021 11:00pm take 1 tablet by tremayne th once daily cholecalciferol, vitamin D3, 1,000 unit tablet Take 1,000 Units by mouth daily . 0 Active clindamycin 10 mg/ml medicated pad (2 sources) Lincosamide Antibacterial Start: 07-14-2023 clindamycin (Cleocin T) 1 % swab 07/14/2023 Active cyclobenzaprine hydrochloride 10 mg oral tablet (3 sources) Muscle Relaxant Start: 01-22-2023 take 25 mg by mouth twice daily Cyclobenzaprine Active 25 MG PO TWICE A DAY April 05, 2022 8:20pm Start: 10-11-2020 End: 04-05-2022 take 10 mg by mouth twice daily Cyclobenzaprine Discontinued 10 MG PO TWICE A DAY October 11, 2020 2:44am April 05, 2022 8:20pm 24 hr darifenacin 15 mg extended release oral tablet (11 sources) Cholinergic Muscarinic Antagonist Start: 07-13-2023 End: 07-13-2024 take 1 tablet by mouth once daily darifenacin (Enablex) 15 mg 24 hr tablet TAKE ONE TABLET BY MOUTH EVERY DAY FOR FREQUENT URINATION 07/13/2023 07/13/2024 Active Start: 09-01-2021 take 15 mg by mouth once daily Darifenacin Active 15 MG PO DAILY August 31, 2021 11:00pm take 1 tablet by tremayne th once daily darifenacin (ENABLEX) 15 mg 24 hr tablet Take 15 mg by mouth daily . 0 Active diclofenac sodium 0.01 mg/mg topical gel (2 sources) Nonsteroidal Anti-inflammatory Drug Start: 09-11-2020 diclofenac sodium (Voltaren) 1 % Gel Indications: Pain in wrist, unspecified laterality Place 2 (two) g on the skin 4 (four) times a day . 100 g 4 09/11/2020 Active finasteride 5 mg oral tablet (3 sources) 5-alpha Reductase Inhibitor Start: 07-13-2023 End: 07-13-2024 take 1 tablet by mouth once daily finasteride (Proscar) 5 mg tablet TAKE ONE TABLET BY MOUTH EVERY DAY (DO NOT CRUSH) 07/13/2023 07/13/2024 Active Start: 09-01-2021 take 5 mg by mouth once daily Finasteride Active 5 MG PO DAILY August 31, 2021 11:00pm furosemide 20 mg oral tablet (11 sources) Loop Diuretic Start: 04-05-2022 take 1 tablet by mouth once daily Furosemide (Lasix) 20 mg Tablet Active 20 MG PO DAILY April 05, 2022 12:00am Start: 09-01-2021 End: 09-03-2021 take 20 mg by mouth once daily Furosemide Discontinued 20 MG PO DAILY August 31, 2021 11:00pm September 03, 2021 11:01am take 1 tablet by tremayne th twice daily furosemide (LASIX) 20 MG tablet Take 20 mg by mouth 2 (two) times a day . 0 Active glipiZIDE er 2.5 mg 24 hr extended release oral tablet (8 sources) Sulfonylurea take 1 tablet by mouth once daily glipiZIDE (GLUCOTROL XL) 2.5 MG 24 hr tablet Take 2.5 mg by mouth daily . 0 Active ketoconazole 20 mg/ml topical cream (1 source) Azole Antifungal Start: 07-14-19 End: 07-15-19 25 ketoconazole (NIZOral) 2 % cream APPLY A SUFFICIENT AMOUNT EXTERNALLY EVERY DAY TO SCALY AREAS ON FACE 07/14/2023 07/14/2024 Active LORazepam 1 mg oral tablet (3 sources) Benzodiazepine Start: 03-31-19 LORazepam (Ativan) 1 mg tablet Indications: Parkinson's disease without dyskinesia, with fluctuating manifestations , Agitation requiring sedation protocol Take 1 tablet 1 hour prior to your MRI. May repeat 15-30 minutes prior to your MRI. 2 tablet 03/31/2024 Active losartan potassium 100 mg oral tablet (12 sources) Angiotensin 2 Receptor Casie Start: 01-11-20 losartan (Cozaar) 100 mg tablet Take 1 tablet (100 mg) by mouth. 01/11/2024 Active Start: 07-16-2018 take 100 mg by mouth once rena y Losartan Active 100 MG PO DAILY July 15, 2018 11:00pm magnesium oxide 420 mg oral tablet (12 sources) Start: 01-18-2024 take 1 tablet by mouth once daily magnesium oxide (Mag-Ox) 420 mg tablet Take 1 tablet (420 mg) by mouth once daily. 01/18/2024 Active Start: 09-01-2021 take 420 mg by mouth once rena y Magnesium Oxide Active 420 MG PO DAILY August 31, 2021 11:00pm take 1 tablet by tremayne th once daily magnesium oxide (MAG-OX) 400 mg (241.3 mg magnesium) tablet Take 400 mg by mouth daily . 0 Active melatonin 1 mg oral tablet (1 source) take 3 tablets by mouth once daily at bedtime melatonin 1 mg tablet Take 3 tablets (3 mg) by mouth once daily at bedtime. Active meloxicam 15 mg oral tablet (2 sources) Nonsteroidal Anti-inflammatory Drug Start: 09-12-19 21 End: 09-12-19 take 1 tablet by mouth once daily meloxicam (MOBIC) 15 MG tablet Indications: Pain in wrist, unspecified laterality Take 1 (one) tablet (15 mg total) by mouth daily . 30 tablet 11 09/11/2020 09/11/2021 Active metFORMIN hydrochloride 1000 mg oral tablet (12 sources) Biguanide Start: 07-17-19 19 take 1000 mg by mouth twice daily Metformin Active 1000 MG PO TWICE A DAY July 15, 2018 11:00pm 24 hr metoprolol succinate 25 mg extended release oral tablet (12 sources) beta-Adrenergic Casie Start: 01-11-20 24 take 3 tablets by mouth every twenty-four hours metoprolol succinate XL (Toprol-XL) 25 mg 24 hr tablet Take 3 tablets (75 mg) by mouth. 01/11/2024 Active Start: 07-16-2018 End: 09-03-2021 take 12.5 mg by mouth once daily Metoprolol Succinate Discontinued 12.5 MG PO DAILY July 15, 2018 11:00pm September 03, 2021 11:01am take 1 tablet by tremayne th once daily metoprolol succinate (TOPROL-XL) 100 MG 24 hr tablet Take 100 mg by mouth daily . 0 Active 24 hr mirabegron 50 mg extended release oral tablet (11 sources) beta3-Adrenergic Agonist Start: 07-13-2023 End: 07-13-2024 take 1 tablet by mouth once daily Myrbetriq 50 mg tablet extended release 24 hr 24 hr tablet TAKE ONE TABLET BY MOUTH EVERY DAY FOR FREQUENT URINATION (DO NOT CHEW, CRUSH OR SPLIT TABLET) 07/13/2023 07/13/2024 Active Start: 07-16-2018 take 1 tablet by tremayne th once daily Mirabegron (Myrbetriq) 25 MG tablet extended release 24 hr Active 25 MG PO DAILY July 15, 2018 11:00pm take 50 mg by mouth once daily m irabegron (MYRBETRIQ) 50 mg Tb24 Take 50 mg by mouth daily . 0 Active omega-3 fatty acids-fish oil 300-1,000 mg capsule (2 sources) take 2 capsules by mouth once daily omega-3 fatty acids-fish oil 300-1,000 mg capsule Take 2 capsules (2,000 mg) by mouth once daily. Active omega-3 fatty acids/fish oil (fish oil-omega-3 fatty acids) 300-1,000 mg capsule (8 sources) take 1 capsule by mouth once daily omega-3 fatty acids/fish oil (fish oil-omega-3 fatty acids) 300-1,000 mg capsule Take 2 g by mouth daily . 0 Active PARoxetine hydrochloride 30 mg oral tablet (12 sources) Serotonin Reuptake Inhibitor Start: PARoxetine (Paxil) 30 mg tablet Take 1 tablet (30 mg) by mouth. 04/06/2024 Active Start: 07-16-2018 take 30 mg by mouth once daily Paroxetine Hcl Active 30 MG PO DAILY July 15, 2018 11:00pm take 1 tablet by tremayne once daily PARoxetine (PAXIL) 10 MG tablet Take 10 mg by mouth daily . 0 Active microencapsulated potassium chloride 20 meq extended release oral tablet (12 sources) Start: 01-18-2024 potassium chlo ride CR 20 mEq ER tablet Take 2 tablets (40 mEq) by mouth. 01/18/2024 Active Start: 02-22-2013 take 20 mEq by mouth once rena y potassium chloride Active 20 MEQ PO DAILY February 22, 2013 12:00am take [address] [facility] twice daily potassium chloride 10 MEQ CR tablet Take 20 mEq by mouth 2 (two) times a day . 0 Active primidone 50 mg oral tablet (2 sources) Anti-epileptic Agent Start: 12-15-2023 take 2 tablets by mouth three times daily primidone (Mysoline) 50 mg tablet Take 2 tablets (100 mg) by mouth 3 times a day. 12/15/2023 Active semaglutide 0.25 mg or 0.5 mg (2 mg/3 mL) pen injector (2 sources) Start: 05-04-2024 semaglutide 0.25 mg or 0.5 mg (2 mg/3 mL) pen injector Inject under the skin. 05/04/2024 Active spironolactone 25 mg oral tablet (4 sources) Aldosterone Antagonist Start: 12-29-2023 take 1 tablet by mouth once daily spironolactone (Aldactone) 25 mg tablet Take 1 tablet (25 mg) by mouth once daily. 12/29/2023 Active Start: 09-01-2021 take 0.5 tablet by m outh once daily Spironolactone Active 25 MG PO DAILY August 31, 2021 11:00pm take 1/2 tablet a day tamsulosin hydrochloride 0.4 mg oral capsule (4 sources) alpha-Adrenergic Casie Start: 07-13-2023 take 2 capsules by mouth once daily at bedtime tamsulosin (Flomax) 0.4 mg 24 hr capsule Take 2 capsules (0.8 mg) by mouth once daily at bedtime. 07/13/2023 Active Start: 07-16-2018 take 0.4 mg by mouth once rena y Tamsulosin Active 0.4 MG PO DAILY July 15, 2018 11:00pm for eczema triamcinolone acetonide 1 mg/ml topical cream (2 sources) Corticosteroid Start: 09-01-2021 Triamcinolone Acetonide Active 1 APPLIC TOPICAL TWICE A DAY August 31, 2021 11:00pm valproic acid 250 mg oral capsule (1 source) Mood Stabilizer, Anti-epileptic Agent Start: 07-16-2018 take 250 mg by mouth once daily Valproic Acid Active 250 MG PO DAILY July 16, 2018 12:00am Completed/Discontinued Medications Medication Drug Class(es) Dates Sig (Normalized) Sig (Original) calcium chloride 0.0014 meq/ml / potassium chloride 0.004 meq/ml / sodium chloride 0.103 meq/ml / sodium lactate 0.028 meq/ml injectable solution (1 source) Start: 02-21-2020 End: 02-21-2020 lactated Ringers infusion NIFEdipine 60 mg osmotic 24 hr extended release oral tablet (12 sources) Dihydropyridine Calcium Channel Casie Start: 07-16-2018 End: 09-03-2021 take 60 mg by mouth once daily Nifedipine Discontinued 60 MG PO DAILY July 15, 2018 11:00pm September 03, 2021 11:01am take 1 tablet by mouth once rena y NIFEdipine ER (NIFEdipine CC) 60 mg 24 hr tablet Take 1 tablet (60 mg) by mouth once daily. Active Problems Active Problems Problem Classification Problem Date Documented Da te Episodic/Chronic Conditions associated with dizziness or vertigo (1 source) Dizziness and giddiness; Translations: [Dizziness and giddiness] Onset: 04-15-2022 Episodic Essential hypertension (4 sources) Hypertensive disorder; Translations: [Essential (primary) hypertension] Onset: 09-03-2021 Chronic Hemorrhoids (1 source) Hemorrhoids; Translations: [Hemorrhoids, unspecified hemorrhoid type] Episodic Other and unspecified benign neoplasm (1 source) History of polyp of colon; Translations: [Hx of colonic polyps] Episodic Other and unspecified benign neoplasm (1 source) Polyp of colon; Translations: [Polyp of colon, unspecified part of colon, unspecified type] Episodic Other non-traumatic joint disorders (2 sources) Pain in wrist; Translations: [Pain in unspecified wrist] Episodic Parkinson`s disease (8 sources) Parkinson's disease; Translations: [Parkinson's disease] Onset: 09-03-2021 Chronic Parkinson`s disease (4 sources) Parkinson`s disease; Translations: [Parkinson's disease without dyskinesia, with fluctuations (Multi)] Onset: 03-31-2024 Residual codes; unclassified (1 source) Feeling agitated; Translations: [Restlessness and agitation] 03-31-2024 Chronic Residual codes; unclassified (2 sources) Restlessness and agitation; Translations: [Restlessness and agitation] Onset: 03-31-2024 Chronic Residual codes; unclassified (1 source) Pain; Translations: [Pain, unspecified] Episodic Spondylosis; intervertebral disc disorders; other back problems (2 sources) Acute thoracic back pain; Translations: [Pain in thoracic spine] 10-11-2020 Episodic Past or Other Problems Problem Classification Problem Date Documented Da te Episodic/Chronic Cardiac dysrhythmias (5 sources) Bradycardia; Translations: [Bradycardia, unspecified] Onset: 09-03-2021 Episodic Other and unspecified benign neoplasm (9 sources) History of adenomatous polyp of colon; Translations: [Encounter for screening for malignant neoplasm of colon] Onset: 01-29-2020 01-29-2020 Episodic Syncope (1 source) Syncope and collapse; Translations: [Syncope and collapse] Onset: 09-25-2021 Episodic Unclassified (3 sources) Onset: 03-31-2024 Resolved: 05-08-2024 03-31-2024 Results Test Name Value Interpretation Reference Range Facility 12 Lead EKGon 04-05-[address] [facility] Cardi[facility] Services [address] [place] [address] 12 Lead EKG 04/05/222004 MR#: [id number] Acct: [id number] Name: YULI LORENZ Rep #: [id number] : 1945 76 From: Tyshawn Keith MD Attending Dr: Status: DEP ER Ordering Dr: Vinh Chacon MD Date: 04/05/22 Location: ED Sex: M C Admitted: Test Reason : GEN ILL Blood Pressure : / mmHG Vent. Rate : 098 BPM Atrial Rate : 098 BPM P-R Int : 174 ms QRS Dur : 138 ms QT Int : 394 ms P-R-T Axes : 059 -02 035 degrees QTc Int : 503 ms Normal sinus rhythm Right bundle branch block Abnormal ECG Confirmed by ROBERT OREILLY, TYSHAWN ([id number]), editorial manager GABRIELA FRANCOIS ([id number]) on 04/06/2022 10:57:07 AM Referred By: Confirmed By:TYSHAWN KEITH MD 04/06/22 1057 Date Tyshawn Keith MD CC: Dr. Vinh Chacon MD; [facility] Signed Normal [facility] Absolute lymphocyte countOrd ered By: Dr. Chacon on 04-05-2022 Lymphocytes Auto (Unsp spec) [#/Vol] 2.57 10*3/uL 0.83-4.51 [facility] Basophil percentageOrdered B y: Dr. Chacon on 04-05-2022 Basophils/100 WBC (Bld) 0.3 % 0-1 [facility] Bilirubin [Mass/Vol] 0.70 mg/dL 0.20-1.00 [facility] Comment on above: For patients on eltr ombopag therapy, use of Dimension [place] TBIL is not recommended. Chloride [Moles/Vol] 102 mmol/L 98-107 [facility] Eosinophils/100 WBC (Bld) 5.9 % 0-5 [facility] Glucose [Mass/Vol] 120 mg/dL 74-106 [facility] Comment on above: Fasting Glucose resu lt from 100 to 125 mg/dL suggests IMPAIRED HOMEOSTASIS per A.D.A. criteria. Neutrophils (Bld) [#/Vol] 5.4 10*3/uL 2.0-7.7 [facility] Neutrophils/100 WBC (Bld) 58.2 % 47-70 [facility] Potassium [Moles/Vol] 3.4 mmol/L 3.5-5.1 [facility] Protein [Mass/Vol] 7.7 g/dL 6.4-8.2 [facility] Sodium [Moles/Vol] 138 mmol/L 136-145 [facility] WBC (Bld) [#/Vol] 9.3 10*3/uL 4.4-11.0 [facility] Blood erythrocytes count (nu mber/volume)Ordered By: Dr. Chacon on 04-05-2022 RBC (Bld) [#/Vol] 5.18 10*6/uL 4.6-6.2 [facility] Blood hemoglobin measurement (mass/volume)Ordered By: Dr. Chacon on 04-05-2022 Hemoglobin (Bld) [Mass/Vol] 15.4 g/dL 13.0-16.5 [facility] Blood lymphocytes/100 leukoc ytesOrdered By: Dr. Chacon on 04-05-2022 Lymphocytes/100 WBC (Bld) 27.8 % 19-41 [facility] Blood monocytes/100 leukocyt esOrdered By: Dr. Chacon on 04-05-2022 Monocytes/100 WBC (Bld) 7.5 % 0-[address] [facility] Blood platelet mean volumeOr dered By: Dr. Chacon on 04-05-2022 Platelet mean volume (Bld) [Entitic vol] 9.1 fL 6.2-12.0 [facility] Brain/Head without Contrasto n 04-05-2022 Brain/Head without Contrast [facility] Imaging Services [address] [place] [address] Brain/Head without Contrast MR#: [id number] Acct: [id number] Name: YULI LORENZ Destinee Rep #: [id number] : 1945 M 76 From: Raymond Reyes PCP: [facility],[place] Status: [facility] ER Study: Brain/Head without Contrast Date of Exam: 03/16 05/07 Exam# [id number] Ordering Dr: Vinh Chacon MD STUDY: CT BRAIN WITHOUT CONTRAST REASON FOR EXAM: Male, 76 years old. Hypertension TECHNIQUE: Transaxial CT imaging of the brain was performed without administration of intravenous contrast material. Individualized dose optimization techniques were used for this CT. COMPARISON: 5.07.01 FINDINGS: Normal calvarium. Normal soft tissues. Normal size ventricles and extra-axial spaces for the patient''s age. There are areas of decreased attenuation within the white matter tracts of the supratentorial brain, consistent with microvascular disease changes. Normal basal ganglia and thalami. Normal brainstem. Normal cerebellum. There is no intracranial hemorrhage. There are no findings of an acute ischemic infarction. Normal visualized paranasal sinuses. ASPECTS 10 CT/Brain/Head without Contrast IMPRESSION: There are no acute intracranial findings. Electronically Signed: Raymond Chacon MD at 20:48 EST , CC: Dr. Vinh Chacon MD; [facility] Ekg Tech: Signed Normal [facility] CBC W/Diff, Automatedon 03-16 Absolute Lymph 2.57 X10 3/uL Normal 0.83-4.51 [facility] Comment on above: Performed By: #### L 500.4050, L100.0100, L501.4020 #### [facility] [address] [place], [address] Absolute Neut 5.4 X10 3/uL Normal 2.0-7.7 [facility] Comment on above: Performed By: #### L 500.4050, L100.0100, L501.4020 #### [facility] [address] [place], [address] Basophils/100 WBC (Bld) 0.3 % Normal 0-1 [facility] Comment on above: Performed By: #### L 500.4050, L100.0100, L501.4020 #### [facility] [address] [place], [address] Eosinophils/100 WBC (Bld) 5.9 % High 0-5 [facility] Comment on above: Performed By: #### L 500.4050, L100.0100, L501.4020 #### [facility] [address] [place], [address] Erythrocyte distribution width (RBC) [Ratio] 12.4 % Normal 11.6-14.6 [facility] Comment on above: Performed By: #### L 500.4050, L100.0100, L501.4020 #### [facility] [address] [place], [address] Hematocrit (Bld) [Volume fraction] 44.1 % Normal 40-54 [facility] Comment on above: Performed By: #### L 500.4050, L100.0100, L501.4020 #### [facility] [address] [place], [address] Hemoglobin (Bld) [Mass/Vol] 15.4 g/dL Normal 13.0-16.5 [facility] Comment on above: Performed By: #### L 500.4050, L100.0100, L501.4020 #### [facility] [address] [place], [address] IG% 0.300 Normal 0.0-0.9 [facility] Comment on above: Result Comment: IG% - Immature Granulocytes (promyelocytes, myelocytes and metamyelocytes) > 1% indicates that a LEFT SHIFT is Present. Performed By: #### L 500.4050, L100.0100, L501.4020 #### [facility] [address] [place], [address] Lymphocytes/100 WBC (Bld) 27.8 % Normal 19-41 [facility] Comment on above: Performed By: #### L 500.4050, L100.0100, L501.4020 #### [facility] [address] [place], [address] MCH (RBC) [Entitic mass] 29.7 pg Normal 27.0-32.0 [facility] Comment on above: Performed By: #### L 500.4050, L100.0100, L501.4020 #### [facility] [address] [place], [address] MCHC (RBC) [Mass/Vol] 34.9 g/dL Normal 32-36 [facility] Comment on above: Performed By: #### L 500.4050, L100.0100, L501.4020 #### [facility] [address] [place], [address] MCV (RBC) [Entitic vol] 85.1 fL Normal 80-[address] [facility] Comment on above: Performed By: #### L 500.4050, L100.0100, L501.4020 #### [facility] [address] [place], [address] Monocytes/100 WBC (Bld) 7.5 % Normal 0-[address] [facility] Comment on above: Performed By: #### L 500.4050, L100.0100, L501.4020 #### [facility] [address] [place], [address] Neutrophils/100 WBC (Bld) 58.2 % Normal 47-70 [facility] Comment on above: Performed By: #### L 500.4050, L100.0100, L501.4020 #### [facility] [address] [place], [address] Nucleated RBC (Bld) [#/Vol] 0 10*3/uL Normal 0-5 [facility] Comment on above: Performed By: #### L 500.4050, L100.0100, L501.4020 #### [facility] [address] [place], [address] Platelet mean volume (Bld) [Entitic vol] 9.1 fL Normal 6.2-12.0 [facility] Comment on above: Performed By: #### L 500.4050, L100.0100, L501.4020 #### [facility] [address] [place], [address] Platelets (Bld) [#/Vol] 202 10*3/uL Normal 150-450 [facility] Comment on above: Performed By: #### L 500.4050, L100.0100, L501.4020 #### [facility] [address] [place], [address] RBC (Bld) [#/Vol] 5.18 10*6/uL Normal 4.6-6.2 [facility] Comment on above: Performed By: #### L 500.4050, L100.0100, L501.4020 #### [facility] [address] [place], [address] RDW SD 38.2 fl Normal 35.1-43.9 [facility] Comment on above: Performed By: #### L 500.4050, L100.0100, L501.4020 #### [facility] [address] [place], [address] WBC (Bld) [#/Vol] 9.3 10*3/uL Normal 4.4-11.0 [facility] Comment on above: Performed By: #### L 500.4050, L100.0100, L501.4020 #### [facility] [address] [place], [address] Chest 1 View (Portable)on Chest 1 View (Portable) [facility] Imaging Services [address] [place] [address] Chest 1 View (Portable) MR#: [id number] Acct: [id number] Name: YULI LORENZ Rep #: [id number] : 1945 M 76 From: Mustapha ritchie MD PCP: [facility],[place] Status: REG ER Study: Chest 1 View (Portable) Date of Exam: 04/05/22 Exam# [id number] Ordering Dr: Vinh Chacon MD INDICATION: CAD EXAMINATION/TECHNIQU E: X-RAY - XR Chest 1 View COMPARISON: 09/01/2021. FINDINGS: The lungs are clear. Tortuous and calcified thoracic aorta. The heart is not enlarged. No pleural effusion or pneumothorax. Degenerative changes of the thoracic spine. RAD/Chest 1 View (Portable) IMPRESSION: No acute radiographic abnormalities. Electronically Signed: Mustapha Andrade MD at 20:27 EST , CC: Dr. Vinh Chacon MD; [facility] Ekg Tech: Signed Normal [facility] Comprehensive Metabolic Prof ilon 04-05-2022 Albumin [Mass/Vol] 3.7 g/dL Normal 3.2-5.0 [facility] Comment on above: Order Comment: 'TROP ' Serial specimen #1, #2 or #3: 1 Performed By: #### L 500.4050, L100.0100, L501.4020 ####[facility] [address] [place], [address] Albumin/Globulin [Mass ratio] 0.9 {ratio} Normal 0.9-2.4 [facility] Comment on above: Order Comment: 'TROP ' Serial specimen #1, #2 or #3: 1 Performed By: #### L 500.4050, L100.0100, L501.4020 ####[facility] [address] [place], [address] ALK P 62 U/L Normal 45-117 [facility] Comment on above: Order Comment: 'TROP ' Serial specimen #1, #2 or #3: 1 Performed By: #### L 500.4050, L100.0100, L501.4020 ####[facility] [address] [place], [address] ALT [Catalytic activity/Vol] 92 U/L High 16-61 [facility] Comment on above: Order Comment: 'TROP ' Serial specimen #1, #2 or #3: 1 Performed By: #### L 500.4050, L100.0100, L501.4020 ####[facility] [address] [place], [address] AST [Catalytic activity/Vol] 50 U/L High 15-37 [facility] Comment on above: Order Comment: 'TROP ' Serial specimen #1, #2 or #3: 1 Performed By: #### L 500.4050, L100.0100, L501.4020 ####[facility] [address] [place], [address] Bilirubin [Mass/Vol] 0.70 mg/dL Normal 0.20-1.00 [facility] Comment on above: Order Comment: 'TROP ' Serial specimen #1, #2 or #3: 1 Result Comment: For patients on eltrombopag therapy, use of Dimension [place] TBIL is not recommended. Performed By: #### L 500.4050, L100.0100, L501.4020 ####[facility] [address] [place], [address] BUN/CRE 22.4 RATIO High 10-20 [facility] Comment on above: Order Comment: 'TROP ' Serial specimen #1, #2 or #3: 1 Performed By: #### L 500.4050, L100.0100, L501.4020 ####[facility] [address] [place], [address] CA,Total 9.4 mg/dL Normal 8.5-10.1 [facility] Comment on above: Order Comment: 'TROP ' Serial specimen #1, #2 or #3: 1 Performed By: #### L 500.4050, L100.0100, L501.4020 ####[facility] [address] [place], [address] Chloride [Moles/Vol] 102 mmol/L Normal 98-107 [facility] Comment on above: Order Comment: 'TROP ' Serial specimen #1, #2 or #3: 1 Performed By: #### L 500.4050, L100.0100, L501.4020 ####[facility] [address] [place], [address] CO2 [Moles/Vol] 26.0 mmol/L Normal 21.0-32.0 [facility] Comment on above: Order Comment: 'TROP ' Serial specimen #1, #2 or #3: 1 Performed By: #### L 500.4050, L100.0100, L501.4020 ####[facility] [address] [place], [address] Creatinine [Mass/Vol] 1.07 mg/dL Normal 0.70-1.30 [facility] Comment on above: Order Comment: 'TROP ' Serial specimen #1, #2 or #3: 1 Result Comment: The validity of the calculated GFR GFRAA in patients over 70 years has not been determined. Clinical correlation is essential. Performed By: #### L 500.4050, L100.0100, L501.4020 ####[facility] [address] [place], [address] ECRCL 60.64 ml/min Normal [facility] Comment on above: Order Comment: 'TROP ' Serial specimen #1, #2 or #3: 1 Performed By: #### L 500.4050, L100.0100, L501.4020 ####[facility] [address] [place], [address] EST GFR - AA 86 mL/min Normal >60 [facility] Comment on above: Order Comment: 'TROP ' Serial specimen #1, #2 or #3: 1 Result Comment: Afri can Ivorian GFR Calc Performed By: #### L 500.4050, L100.0100, L501.4020 ####[facility] [address] [place], [address] GAP 10 Normal 5-15 [facility] Comment on above: Order Comment: 'TROP ' Serial specimen #1, #2 or #3: 1 Performed By: #### L 500.4050, L100.0100, L501.4020 ####[facility] [address] [place], [address] GFR/1.73 sq M.predicted among non-blacks MDRD (S/P/Bld) [Vol rate/Area] 71 mL/min/{1.73_m2} Normal >60 [facility] Comment on above: Order Comment: 'TROP ' Serial specimen #1, #2 or #3: 1 Result Comment: Non- GFR Calc Performed By: #### L 500.4050, L100.0100, L501.4020 ####[facility] [address] [place], [address] Globulin (S) [Mass/Vol] 4.0 g/dL Normal 2.2-4.[address] [facility] Comment on above: Order Comment: 'TROP ' Serial specimen #1, #2 or #3: 1 Performed By: #### L 500.4050, L100.0100, L501.4020 ####[facility] [address] [place], [address] Glucose [Mass/Vol] 120 mg/dL High 74-106 [facility] Comment on above: Order Comment: 'TROP ' Serial specimen #1, #2 or #3: 1 Result Comment: Fast ing Glucose result from 100 to 125 mg/dL suggests IMPAIRED HOMEOSTASIS per A.D.A. criteria. Performed By: #### L 500.4050, L100.0100, L501.4020 ####[facility] [address] [place], [address] Potassium [Moles/Vol] 3.4 mmol/L Low 3.5-5.1 [facility] Comment on above: Order Comment: 'TROP ' Serial specimen #1, #2 or #3: 1 Performed By: #### L 500.4050, L100.0100, L501.4020 ####[facility] [address] [place], [address] Sodium [Moles/Vol] 138 mmol/L Normal 136-145 [facility] Comment on above: Order Comment: 'TROP ' Serial specimen #1, #2 or #3: 1 Performed By: #### L 500.4050, L100.0100, L501.4020 ####[facility] [address] [place], [address] T PROT 7.7 g/dL Normal 6.4-8.2 [facility] Comment on above: Order Comment: 'TROP ' Serial specimen #1, #2 or #3: 1 Performed By: #### L 500.4050, L100.0100, L501.4020 ####[facility] [address] [place], [address] Urea nitrogen [Mass/Vol] 24 mg/dL High 7-18 [facility] Comment on above: Order Comment: 'TROP ' Serial specimen #1, #2 or #3: 1 Performed By: #### L 500.4050, L100.0100, L501.4020 ####[facility] [address] [place], [address] Determination of erythrocyte mean corpuscular volume (MCV)Ordered By: Dr. Chacno on 04-05-2022 MCV (RBC) [Entitic vol] 85.1 fL 80-94 [facility] Emergency Department Summary on 04-05-2022 Emergency Department Summary [facility] Medical Records Department [address] [place] [address] Emergency Department Summary 04/05/22 MR#: [id number] Acct: [id number] Name: UYLI LORENZ Rep #: [id number] : 1945 76 From: Vinh Chacon MD PCP: [facility],[place] Status:REG ER Location: ED HPI History of Present Illness Chief Complaint: General Illness Narrative Narrative: 76-year-old male past medical history of hypertension noticed around noon that he felt lightheaded with a slight headache. He states that his heart rate was high, above 100, and he had elevated blood pressure. He relates history that he was admitted previously to the hospital here and he had low blood pressure. 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 He is not quite sure what he takes for blood pressure control but states he took his blood pressure after 12:00 in the afternoon, almost 8 hours ago and noticed it was high. He continues to have lightheadedness and a high heart rate. He denies any nausea or vomiting. No shortness of breath. No reasons for dehydration except loose stool/diarrhea. He was concerned mainly about his elevated blood pressure, and his high heart rate. [facility] Medical History Anxiety CPAP (continuous positive airway pressure) dependence Depression Diabetes Former smoker HTN (hypertension) Hypercholesteremia Kidney stones PTSD (post-traumatic stress disorder) Sleep apnea Home Medications aspirin 81 mg chewable tablet 81 mg PO DAILY@0800 heart health 02/22/13 [History Last Taken 09/01/21] potassium chloride 20 meq PO DAILY supplement 02/22/13 [History Last Taken 09/01/21] atorvastatin 80 mg tablet (Lipitor) 80 mg PO DAILY cholesterol 07/16/18 [History Last Taken 08/31/21] losartan 100 mg tablet 100 mg PO DAILY blood pressure 07/16/18 [History Last Taken 09/01/21] metformin 1,000 mg tablet 1,000 mg PO BID diabetes 07/16/18 [History Last Taken 09/01/21] mirabegron 25 mg tablet,extended release 24 hr (Myrbetriq) 25 mg PO DAILY bladder 07/16/18 [History Last Taken 09/01/21] paroxetine HCl 20 mg tablet 30 mg PO DAILY mental health 07/16/18 [History Last Taken 09/01/21] tamsulosin 0.4 mg capsule 0.4 mg PO DAILY prostate 07/16/18 [History Last Taken 09/01/21] hydrocodone-acetamin ophen 5-325mg 5mg-325mg 0.5 - 1 tab PO Q4H PRN PRN Pain 2 days #8 TABLETS 10/11/20 [Rx Last Taken Unknown] chlorthalidone 25 mg tablet 25 mg PO DAILY blood pressure 09/01/21 [History Last Taken Unknown] cholecalciferol (vitamin D3) 50 mcg (2,000 unit) tablet 50 mcg PO DAILY vitamin 09/01/21 [History Last Taken Unknown] darifenacin 15 mg tablet,extended release 24 hr 15 mg PO DAILY bladder 09/01/21 [History Last Taken Unknown] finasteride 5 mg tablet 5 mg PO DAILY prostate 09/01/21 [History Last Taken Unknown] magnesium oxide 420 mg tablet 420 mg PO DAILY supplement 09/01/21 [History Last Taken Unknown] spironolactone 25 mg tablet 25 mg PO DAILY diuretic 09/01/21 [History Last Taken Unknown] triamcinolone acetonide 0.1 % topical cream 1 applic topical BID PRN Dry Skin 09/01/21 [History Last Taken Unknown] cyclobenzaprine 10 mg tablet 25 mg PO BID PRN Muscle Spasm 04/05/22 [History Last Taken Unknown] furosemide 20 mg tablet (Lasix) 20 mg PO DAILY 04/05/22 [History Last Taken Unknown] Allergy/AdvReac Type Severity Reaction Status Date / Time No Known Allergies Allergy Verified 04/05/22 20:05 Surgical History History of cholecystectomy Social History Smoking Status: Former smoker ROS ROS ED ROS Narrative Constitutional: No fever, no chills. HEENT: No sore throat. No neck pain. No loss of vision. No rhinorrhea. Cardiovascular: No chest pain. No palpitations, but noticed high heart rate. No pedal edema. Respiratory: No cough, no shortness of breath. Abdominal: No abdominal pain. No nausea. No vomiting. Genitourinary: No dysuria. No hematuria. Musculoskeletal: No myalgias. No arthralgias. Neurologic: Mild headaches. No dizziness. Positive lightheadedness. Skin: No rash. No change in color. Psychiatric: No depression. No anxiety. EXAM Physical Exam Narrative Exam Narrative: Afebrile. Vital signs noted. Noted blood pressure of 199/112 HEENT: Normocephalic. Atraumatic. PERRL, EOMI. Neck soft and supple. No point tenderness or step off. Cardiovascular: Regular rate and rhythm with intermittent tachycardia. No murmurs, rubs, or gallops appreciated. Respiratory: No tachypnea. Lungs clear to auscultation bilaterally. Gastrointestinal: Abdomen soft, nontender, with normoactive bowel sounds. No rebound or guarding. Neurological: Awake. Alert. Nonfocal, nonlateralizing. Skin: No rash. Normal color. No pallor. Musculoskeletal: No p (more content not included)... Normal [facility] Hematocrit Auto (Bld) [Volum e fraction]Ordered By: Dr. Chacon on 04-05-2022 Hematocrit (Bld) [Volume fraction] 44.1 % 40-54 [facility] L501.4020on 04-05-2022 TROPONIN-I HS 42 pg/mL Normal 3.0-78.0 [facility] Comment on above: Order Comment: 'TROP ' Serial specimen #1, #2 or #3: 1 Result Comment: Plea se Note: New Test Units and Gender Specific Reference Ranges. For more information see Policy Stat Procedure [place] High Sensitivity Troponin (TNIH) and attachments. Performed By: #### L 500.4050, L100.0100, L501.4020 ####[facility] [address] [place], [address] Laboratory - Chemistry and C hemistry - challengeOrdered By: Dr. Chacon on 04-05-2022 ALP [Catalytic activity/Vol] 62 U/L 45-117 [facility] ALT [Catalytic activity/Vol] 92 U/L 16-61 [facility] CO2 [Moles/Vol] 26.0 mmol/L 21.0-32.0 [facility] Globulin (S) [Mass/Vol] 4.0 g/dL 2.2-4.2 [facility] Urea nitrogen/Creatinine [Mass ratio] 22.4 mg/mg 10-20 [facility] Laboratory - Hematology and Cell countsOrdered By: Dr. Chacon on 04-05-2022 Erythrocyte distribution width (RBC) [Entitic vol] 38.2 fL 35.1-43.9 [facility] Erythrocyte distribution width (RBC) [Ratio] 12.4 % 11.6-14.6 [facility] Immature granulocytes/100 WBC (Bld) 0.300 % 0.0-0.9 [facility] Comment on above: IG% - Immature Granu locytes (promyelocytes, myelocytes and metamyelocytes) > 1% indicates that a LEFT SHIFT is Present. MCH (RBC) [Entitic mass] 29.7 pg 27.0-32.0 [facility] Nucleated RBC/100 WBC (Bld) [Ratio] 0 % 0-5 [facility] MCHC Auto (RBC) [Mass/Vol]Or dered By: Dr. Chacon on 04-05-2022 MCHC (RBC) [Mass/Vol] 34.9 g/dL 32-36 [facility] No Panel InformationOrdered By: Dr. Chacon on 04-05-2022 Estimated Creatinine Clearance Calc 60.64 ml/min [facility] Estimated GFR (MDRD) Amer 86 mL/min >60 [facility] Comment on above: GFR Calc Estimated GFR (MDRD) Non-Af Amer 71 mL/min >60 [facility] Comment on above: Non- GFR Calc Troponin I High Sensitivity 42 pg/mL 3.0-78.0 [facility] Comment on above: Please Note: New Luz t Units and Gender Specific Reference Ranges. For more information see Policy Stat Procedure [place] High Sensitivity Troponin (TNIH) and attachments. Platelets bldOrdered By: Dr. Chacon on 04-05-2022 Platelets (Bld) [#/Vol] 202 10*3/uL 150-450 [facility] Serum or plasma albumin dexter urement (mass/volume)Ordered By: Dr. Chacon on 04-05-2022 Albumin [Mass/Vol] 3.7 g/dL 3.2-5.0 [facility] Serum or plasma albumin/glob ulin mass ratioOrdered By: Dr. Chacon on 04-05-2022 Albumin/Globulin [Mass ratio] 0.9 {ratio} 0.9-2.4 [facility] Serum or plasma calcium dexter urement (mass/volume)Ordered By: Dr. Chacon on 04-05-2022 Calcium [Mass/Vol] 9.4 mg/dL 8.5-10.1 [facility] Serum or plasma creatinine m easurement (mass/volume)Ordered By: Dr. Chacon on 04-05-2022 Creatinine [Mass/Vol] 1.07 mg/dL 0.70-1.30 [facility] Comment on above: The validity of the calculated GFR & GFRAA in patients over 70 years has not been determined. Clinical correlation is essential. Serum or plasma urea nitroge n measurement (mass/volume)Ordered By: Dr. Chacon on 04-05-2022 Urea nitrogen [Mass/Vol] 24 mg/dL 7-18 [facility] Thin prep Papanicolaou smear with manual screeningOrdered By: Dr. Chacon on 04-05-2022 Thin prep Papanicolaou smear with manual screening 50 U/L 15-37 [facility] Thin prep Papanicolaou smear with manual screening 10 5-15 [facility] Discharge Instructionon 08-14 Discharge Instruction [facility] Medical Records Department [address] [place] [address] Instructions for Home/Discharge Instructions 09/03/21 1133 MR#: [id number] Acct: [id number] Name: YULI LORENZ Rep #: [id number] : 1945 76 From: Anu Blackman MD PCP: [facility] Status:ADM IN Discharge Instructions Diet Discharge Diet: Low fat / Low cholesterol and 2000 mg Sodium Diet Activity Discharge Activity: Return to Normal Activity Follow Up Care Test Results: Test results from this visit will be discussed in further detail at your follow-up appointment, if applicable. Discharge Plan Admission Admit Date/Time: 09/02/21 10:26 Primary Reason for Your Visit: Symptomatic bradycardia Attending Provider: Anu Blackman Primary Care Provider: [facility] Consulting Providers: Patel Blanco Instructions Additional Instructions / Restrictions: Take note of changes to your medications. Continue to measure your blood pressure every day Follow-up with your primary care doctor within a week for blood pressure evaluation Discharge Orders/Prescriptions Prescriptions: Continued aspirin 81 MG tablet,chewable 81 mg PO DAILY@0800 potassium chloride 20 meq PO DAILY atorvastatin [Lipitor] 80 MG tablet 80 mg PO DAILY valproic acid 250 MG capsule 250 mg PO DAILY tamsulosin 0.4 MG capsule 0.4 mg PO DAILY Rx Instructions: for eczema paroxetine HCl 20 MG tablet 30 mg PO DAILY metformin 1,000 MG tablet 1,000 mg PO BID losartan 100 MG tablet 100 mg PO DAILY aripiprazole [Abilify] 5 MG tablet 5 mg PO DAILY Myrbetriq 25 MG tablet extended release 24 hr 25 mg PO DAILY cyclobenzaprine 10 MG tablet 10 mg PO BID PRN (Reason: Muscle Spasm) Qty: 12 0RF hydrocodone-acetamin ophen 1 TABLET tablet 0.5 - 1 tab PO Q4H PRN PRN (Reason: Pain) 2 Days Qty: 8 0RF carbidopa-levodopa 25-100 mg Tablet 2.5 tab PO 4X/DAY chlorthalidone 25 mg Tablet 25 mg PO DAILY finasteride 5 mg Tablet 5 mg PO DAILY darifenacin 15 mg Tablet Extended Release 24 Hr 15 mg PO DAILY cholecalciferol (vitamin D3) 50 mcg (2,000 unit) Tablet 50 mcg PO DAILY magnesium oxide 420 mg Tablet 420 mg PO DAILY spironolactone 25 mg Tablet 25 mg PO DAILY Rx Instructions: take 1/2 tablet a day triamcinolone acetonide 0.1 % Cream 1 applic TOPICAL BID PRN (Reason: Dry Skin) Discontinued nifedipine 60 MG tablet 60 mg PO DAILY metoprolol succinate 25 MG tablet extended release 24 hr 12.5 mg PO DAILY furosemide 20 mg Tablet 20 mg PO DAILY Referrals / Follow Up: [facility] [Primary Care Provider] - In 1 Week Disposition Disposition (needs filled in before D/C Order can be placed): Home, Self Care 09/03/21 1201 Anu Blackman MD CC: Dr. Patel Blanco MD; [facility] Signed Normal [facility] No Panel Informationon 09-03 Thyroid Stimulating Hormone (TSH) 1.42 uIU/mL 0.358-3.74 [facility] Work Phone: Thyroid Stim Hormone (TSH)on 09-03-2021 TSH 1.42 uIU/mL Normal 0.358-3.74 [facility] Comment on above: Order Comment: Comme nts: add on test Performed By: #### L 501.9520 ####[facility] [address] [place], [address] Basic Metabolic Profile (BMP )on 09-02-2021 BUN/CRE 18.7 RATIO Normal 10-20 [facility] Comment on above: Performed By: #### L 500.2500 #### [facility] [address] [place], [address] CA,Total 8.8 mg/dL Normal 8.5-10.1 [facility] Comment on above: Performed By: #### L 500.2500 #### [facility] [address] [place], [address] Chloride [Moles/Vol] 105 mmol/L Normal 98-107 [facility] Comment on above: Performed By: #### L 500.2500 #### [facility] [address] [place], [address] CO2 [Moles/Vol] 25.0 mmol/L Normal 21.0-32.0 [facility] Comment on above: Performed By: #### L 500.2500 #### [facility] [address] [place], [address] Creatinine [Mass/Vol] 1.07 mg/dL Normal 0.70-1.30 [facility] Comment on above: Result Comment: The validity of the calculated GFR GFRAA in patients over 70 years has not been determined. Clinical correlation is essential. Performed By: #### L 500.2500 #### [facility] [address] [place], [address] ECRCL 60.64 ml/min Normal [facility] Comment on above: Performed By: #### L 500.2500 #### [facility] [address] [place], [address] EST GFR - AA 86 mL/min Normal >60 [facility] Comment on above: Result Comment: Afri can Ivorian GFR Calc Performed By: #### L 500.2500 #### [facility] [address] [place], [address] GAP 7 Normal 5-15 [facility] Comment on above: Performed By: #### L 500.2500 #### [facility] [address] [place], [address] GFR/1.73 sq M.predicted among non-blacks MDRD (S/P/Bld) [Vol rate/Area] 71 mL/min/{1.73_m2} Normal >60 [facility] Comment on above: Result Comment: Non- GFR Calc Performed By: #### L 500.2500 #### [facility] [address] [place], [address] Glucose [Mass/Vol] 94 mg/dL Normal 74-106 [facility] Comment on above: Performed By: #### L 500.2500 #### [facility] [address] [place], [address] Potassium [Moles/Vol] 4.4 mmol/L Normal 3.5-5.1 [facility] Comment on above: Result Comment: Mode rate Hemolysis, Result may be falsely increased. Performed By: #### L 500.2500 #### [facility] [address] [place], [address] Sodium [Moles/Vol] 137 mmol/L Normal 136-145 [facility] Comment on above: Performed By: #### L 500.2500 #### [facility] [address] [place], [place], [id number] Urea nitrogen [Mass/Vol] 20 mg/dL High 7-18 [facility] Comment on above: Performed By: #### L 500.2500 #### [facility] [address] [place], [place], [address] Basophil percentageon 2021 Chloride [Moles/Vol] 105 mmol/L 98-107 [facility] Work Phone: Glucose [Mass/Vol] 94 mg/dL 74-106 [facility] Work Phone: Potassium [Moles/Vol] 4.4 mmol/L 3.5-5.1 [facility] Work Phone: Comment on above: Moderate Hemolysis, Result may be falsely increased. Sodium [Moles/Vol] 137 mmol/L 136-145 [facility] Work Phone: Laboratory - Chemistry and C hemistry - challengeon 09-02-2021 CO2 [Moles/Vol] 25.0 mmol/L 21.0-32.0 [facility] Work Phone: Urea nitrogen/Creatinine [Mass ratio] 18.7 mg/mg 10-20 [facility] Work Phone: No Panel Informationon 09-02 Estimated Creatinine Clearance Calc 60.64 ml/min [facility] Work Phone: Estimated GFR (MDRD) Amer 86 mL/min >60 [facility] Work Phone: Comment on above: GFR Calc Estimated GFR (MDRD) Non-Af Amer 71 mL/min >60 [facility] Work Phone: Comment on above: Non- GFR Calc Serum or plasma calcium dexter urement (mass/volume)on 09-02-2021 Calcium [Mass/Vol] 8.8 mg/dL 8.5-10.1 [facility] Work Phone: Serum or plasma creatinine m easurement (mass/volume)on 09-02-2021 Creatinine [Mass/Vol] 1.07 mg/dL 0.70-1.30 [facility] Work Phone: Comment on above: The validity of the calculated GFR & GFRAA in patients over 70 years has not been determined. Clinical correlation is essential. Serum or plasma urea nitroge n measurement (mass/volume)on 09-02-2021 Urea nitrogen [Mass/Vol] 20 mg/dL 7-18 [facility] Work Phone: Thin prep Papanicolaou smear with manual screeningon 09-02-2021 Thin prep Papanicolaou smear with manual screening 7 5-15 [facility] Work Phone: 12 Lead EKGon 09-01-[address] [facility] Cardiovascular Services [address] [place] [address] 12 Lead EKG 09/01/21 1713 MR#: [id number] Acct: [id number] Name: YULI LORENZ Rep #: [id number] : 1945 76 From: Patel Chopra MD Attending Dr: Dr. Anu Blackman MD Status: ADM IN O Ordering Dr: Remberto Gramajo DO Date: 09/01/21 Location: [facility] Sex: M C Admitted: 09/01/21 Test Reason : Blood Pressure : / mmHG Vent. Rate : 043 BPM Atrial Rate : 043 BPM P-R Int : 184 ms QRS Dur : 146 ms QT Int : 508 ms P-R-T Axes : 051 014 032 degrees QTc Int : 429 ms Marked sinus bradycardia Right bundle branch block Abnormal ECG Confirmed by NAV OREILLY, PATEL ([id number]), editorial manager GABRIELA FRANCOIS ([id number]) on 09/02/2021 9:04:52 AM Referred By: LISA/BRANDIN Confirmed By:PATEL CHOPRA MD 09/02/21 0904 Date Patel Chopar MD CC: Dr. Anu Blackman MD; Dr. Remberto Gramajo DO; [facility] Signed Normal [facility] Absolute lymphocyte counton 09-01-2021 Lymphocytes Auto (Unsp spec) [#/Vol] 2.46 10*3/uL 0.83-4.51 [facility] Work Phone: BNP,B-Type NATRIURETIC PEPTI Dejaun 09-01-2021 Natriuretic peptide B (Bld) [Mass/Vol] 117.0 pg/mL High 0-100 [facility] Comment on above: Performed By: #### L 500.2500, L503.6620, L100.0100, L501.5425 ####[facility] [address] [place], [address] Basic Metabolic Profile (BMP )on 09-01-2021 BUN/CRE 14.1 RATIO Normal 10-20 [facility] Comment on above: Order Comment: 1Y Performed By: #### L 500.2500, L503.6620, L100.0100, L501.5425 ####[facility] [address] [place], [address] CA,Total 9.6 mg/dL Normal 8.5-10.1 [facility] Comment on above: Order Comment: 1Y Performed By: #### L 500.2500, L503.6620, L100.0100, L501.5425 ####[facility] [address] [place], [address] Chloride [Moles/Vol] 103 mmol/L Normal 98-107 [facility] Comment on above: Order Comment: 1Y Performed By: #### L 500.2500, L503.6620, L100.0100, L501.5425 ####[facility] [address] [place], [address] CO2 [Moles/Vol] 27.0 mmol/L Normal 21.0-32.0 [facility] Comment on above: Order Comment: 1Y Performed By: #### L 500.2500, L503.6620, L100.0100, L501.5425 ####[facility] [address] [place], [address] Creatinine [Mass/Vol] 1.70 mg/dL High 0.70-1.30 [facility] Comment on above: Order Comment: 1Y Result Comment: The validity of the calculated GFR GFRAA in patients over 70 years has not been determined. Clinical correlation is essential. Performed By: #### L 500.2500, L503.6620, L100.0100, L501.5425 ####[facility] [address] [place], [address] ECRCL 38.17 ml/min Normal [facility] Comment on above: Order Comment: 1Y Performed By: #### L 500.2500, L503.6620, L100.0100, L501.5425 ####[facility] [address] [place], [address] EST GFR - AA 51 mL/min Low >60 [facility] Comment on above: Order Comment: 1Y Result Comment: Afri can Ivorian GFR Calc Performed By: #### L 500.2500, L503.6620, L100.0100, L501.5425 ####[facility] [address] [place], [address] GAP 9 Normal 5-15 [facility] Comment on above: Order Comment: 1Y Performed By: #### L 500.2500, L503.6620, L100.0100, L501.5425 ####[facility] [address] [place], [address] GFR/1.73 sq M.predicted among non-blacks MDRD (S/P/Bld) [Vol rate/Area] 42 mL/min/{1.73_m2} Low >60 [facility] Comment on above: Order Comment: 1Y Result Comment: Non- GFR Calc Performed By: #### L 500.2500, L503.6620, L100.0100, L501.5425 ####[facility] [address] [place], [address] Glucose [Mass/Vol] 149 mg/dL High 74-106 [facility] Comment on above: Order Comment: 1Y Result Comment: Fast ing Glucose result greater than or equal to 126 mg/dL suggests DIABETES MELLITUS per A.D.A. criteria. Performed By: #### L 500.2500, L503.6620, L100.0100, L501.5425 ####[facility] [address] [place], [address] Potassium [Moles/Vol] 3.9 mmol/L Normal 3.5-5.1 [facility] Comment on above: Order Comment: 1Y Performed By: #### L 500.2500, L503.6620, L100.0100, L501.5425 ####[facility] [address] [place], [address] Sodium [Moles/Vol] 139 mmol/L Normal 136-145 [facility] Comment on above: Order Comment: 1Y Performed By: #### L 500.2500, L503.6620, L100.0100, L501.5425 ####[facility] [address] [place], [address] Urea nitrogen [Mass/Vol] 24 mg/dL High 7-18 [facility] Comment on above: Order Comment: 1Y Performed By: #### L 500.2500, L503.6620, L100.0100, L501.5425 ####[facility] [address] [place], [address] Basophil percentageon 09-01- 2021 Basophils/100 WBC (Bld) 0.4 % 0-1 [facility] Work Phone: Eosinophils/100 WBC (Bld) 4.3 % 0-5 [facility] Work Phone: Neutrophils (Bld) [#/Vol] 5.8 10*3/uL 2.0-7.7 [facility] Work Phone: Neutrophils/100 WBC (Bld) 61.6 % 47-70 [facility] Work Phone: WBC (Bld) [#/Vol] 9.5 10*3/uL 4.4-11.0 [facility] Work Phone: Blood erythrocytes count (nu mber/volume)on 09-01-2021 RBC (Bld) [#/Vol] 4.79 10*6/uL 4.6-6.2 [facility] Work Phone: Blood hemoglobin measurement (mass/volume)on 09-01-2021 Hemoglobin (Bld) [Mass/Vol] 13.9 g/dL 13.0-16.5 [facility] Work Phone: Blood lymphocytes/100 leukoc yteson 09-01-2021 Lymphocytes/100 WBC (Bld) 25.9 % 19-41 [facility] Work Phone: Blood monocytes/100 leukocyt eson 09-01-2021 Monocytes/100 WBC (Bld) 7.0 % 0-10 [facility] Work Phone: Blood platelet mean volumeon 09-01-2021 Platelet mean volume (Bld) [Entitic vol] 9.0 fL 6.2-12.0 [facility] Work Phone: CBC W/Diff, Automatedon -2 Absolute Lymph 2.46 X10 3/uL Normal 0.83-4.51 [facility] Comment on above: Performed By: #### L 500.2500, L503.6620, L100.0100, L501.5425 ####[facility] [address] [place], [address] Absolute Neut 5.8 X10 3/uL Normal 2.0-7.7 [facility] Comment on above: Performed By: #### L 500.2500, L503.6620, L100.0100, L501.5425 ####[facility] [address] [place], [address] Basophils/100 WBC (Bld) 0.4 % Normal 0-1 [facility] Comment on above: Performed By: #### L 500.2500, L503.6620, L100.0100, L501.5425 ####[facility] [address] [place], [address] Eosinophils/100 WBC (Bld) 4.3 % Normal 0-5 [facility] Comment on above: Performed By: #### L 500.2500, L503.6620, L100.0100, L501.5425 ####[facility] [address] [place], [address] Erythrocyte distribution width (RBC) [Ratio] 12.7 % Normal 11.6-14.6 [facility] Comment on above: Performed By: #### L 500.2500, L503.6620, L100.0100, L501.5425 ####[facility] [address] [place], [address] Hematocrit (Bld) [Volume fraction] 41.2 % Normal 40-54 [facility] Comment on above: Performed By: #### L 500.2500, L503.6620, L100.0100, L501.5425 ####[facility] [address] [place], [address] Hemoglobin (Bld) [Mass/Vol] 13.9 g/dL Normal 13.0-16.5 [facility] Comment on above: Performed By: #### L 500.2500, L503.6620, L100.0100, L501.5425 ####[facility] [address] [place], [address] IG% 0.800 Normal 0.0-0.9 [facility] Comment on above: Result Comment: IG% - Immature Granulocytes (promyelocytes, myelocytes and metamyelocytes) > 1% indicates that a LEFT SHIFT is Present. Performed By: #### L 500.2500, L503.6620, L100.0100, L501.5425 ####[facility] [address] [place], [address] Lymphocytes/100 WBC (Bld) 25.9 % Normal 19-41 [facility] Comment on above: Performed By: #### L 500.2500, L503.6620, L100.0100, L501.5425 ####[facility] [address] [place], [address] MCH (RBC) [Entitic mass] 29.0 pg Normal 27.0-32.0 [facility] Comment on above: Performed By: #### L 500.2500, L503.6620, L100.0100, L501.5425 ####[facility] [address] [place], [address] MCHC (RBC) [Mass/Vol] 33.7 g/dL Normal 32-36 [facility] Comment on above: Performed By: #### L 500.2500, L503.6620, L100.0100, L501.5425 ####[facility] [address] [place], [address] MCV (RBC) [Entitic vol] 86.0 fL Normal 80-94 [facility] Comment on above: Performed By: #### L 500.2500, L503.6620, L100.0100, L501.5425 ####[facility] [address] [place], [address] Monocytes/100 WBC (Bld) 7.0 % Normal 0-10 [facility] Comment on above: Performed By: #### L 500.2500, L503.6620, L100.0100, L501.5425 ####[facility] [address] [place], [address] Neutrophils/100 WBC (Bld) 61.6 % Normal 47-70 [facility] Comment on above: Performed By: #### L 500.2500, L503.6620, L100.0100, L501.5425 ####[facility] [address] [place], [address] Nucleated RBC (Bld) [#/Vol] 0 10*3/uL Normal 0-5 [facility] Comment on above: Performed By: #### L 500.2500, L503.6620, L100.0100, L501.5425 ####[facility] [address] [place], [address] Platelet mean volume (Bld) [Entitic vol] 9.0 fL Normal 6.2-12.0 [facility] Comment on above: Performed By: #### L 500.2500, L503.6620, L100.0100, L501.5425 ####[facility] [address] [place], [address] Platelets (Bld) [#/Vol] 266 10*3/uL Normal 150-450 [facility] Comment on above: Performed By: #### L 500.2500, L503.6620, L100.0100, L501.5425 ####[facility] [address] [place], [address] RBC (Bld) [#/Vol] 4.79 10*6/uL Normal 4.6-6.2 [facility] Comment on above: Performed By: #### L 500.2500, L503.6620, L100.0100, L501.5425 ####[facility] [address] [place], [address] RDW SD 39.9 fl Normal 35.1-43.9 [facility] Comment on above: Performed By: #### L 500.2500, L503.6620, L100.0100, L501.5425 ####[facility] [address] [place], [address] WBC (Bld) [#/Vol] 9.5 10*3/uL Normal 4.4-11.0 [facility] Comment on above: Performed By: #### L 500.2500, L503.6620, L100.0100, L501.5425 ####[facility] [address] [place], [address] Chest 1 View (Portable)on Chest 1 View (Portable) [facility] Imaging Services [address] [facility] [facility] [place] [address] Chest 1 View (Portable) MR#: [id number] Acct: [id number] Name: GERDAYULI Destinee Rep #: [id number] : 1945 M 76 From: Soto Lucero MD PCP: [facility] Status: REG ER Study: Chest 1 View (Portable) Date of Exam: 09/01/21 Exam# [id number] Ordering Dr: Remberto Gramajo DO STUDY: X-RAY CHEST REASON FOR EXAM: Male, 76 years old. chest pain TECHNIQUE: 1 view COMPARISON: 07/16/2018 FINDINGS: Cardiomediastinal silhouette is unremarkable. Costophrenic angles are sharp. Lungs are clear. The trachea is midline. There is no pneumothorax. The bones are grossly intact. RAD/Chest 1 View (Portable) IMPRESSION: No acute cardiopulmonary process. Electronically Signed: Soto Lucero MD at 17:59 EDT Reading Location ID and State: [facility] / [place] Tel , Service support , CC: Dr. Remberto Gramajo, ; [place] [facility] Ekg Tech: Signed Normal [facility] Determination of erythrocyte mean corpuscular volume (MCV)on 09-01-2021 MCV (RBC) [Entitic vol] 86.0 fL 80-94 [facility] Work Phone: Emergency Department Summary on 09-01-2021 Emergency Department Summary [facility] Medical Records Department [address] [place] [address] Emergency Department Summary 09/01/21 MR#: [id number] Acct: [id number] Name: YULI LORENZ Rep #: [id number] : 1945 76 From: Remberto Gramajo DO PCP: [place] Status:ADM SUSANA Location: [place] [address] HPI History of Present Illness Chief Complaint: General Illness Narrative Narrative: 26-year-old male presenting with lightheadedness and near syncope which started today at about 330. He noted his blood pressure was in the 70s systolic. He states this is same blood pressure cuff that he always uses. He has had no medication changes. Patient takes losartan 100 mg p.o. daily, metoprolol succinate 12.5 mg p.o. daily, nifedipine which may have affected his blood pressure. Patient denies chest pain. He states that shortness of breath is his typical shortness of breath. No fever, cough. No nausea or vomiting. He denies leg swelling. He states he had diarrhea once 3 days ago and does not think he is dehydrated. He is eating and drinking normally. Is making normal urine and stool. He denies black or bloody stools. He is not anticoagulated. [facility] Medical History (Updated 09/01/21 @ 19:44 by Kait Hoyos) Anxiety CPAP (continuous positive airway pressure) dependence Depression Diabetes Former smoker HTN (hypertension) Hypercholesteremia Kidney stones PTSD (post-traumatic stress disorder) Sleep apnea Home Medications Potassium Citrate 10 meq PO DAILY 02/22/13 [History Last Taken 09/01/21] aspirin 81 mg chewable tablet 81 mg PO DAILY@0800 02/22/13 [History Last Taken 09/01/21] aripiprazole 5 mg tablet (Abilify) 5 mg PO DAILY 07/16/18 [History Last Taken 09/01/21] atorvastatin 80 mg tablet (Lipitor) 80 mg PO DAILY 07/16/18 [History Last Taken 08/31/21] losartan 100 mg tablet 100 mg PO DAILY 07/16/18 [History Last Taken 09/01/21] metformin 1,000 mg tablet 1,000 mg PO BID 07/16/18 [History Last Taken 09/01/21] metoprolol succinate 25 mg tablet,extended release 24 hr 12.5 mg PO DAILY 07/16/18 [History Last Taken 09/01/21] mirabegron 25 mg tablet,extended release 24 hr (Myrbetriq) 25 mg PO DAILY 07/16/18 [History Last Taken 09/01/21] nifedipine 60 mg tablet,extended release 24 hr 60 mg PO DAILY 07/16/18 [History Last Taken 09/01/21] paroxetine HCl 20 mg tablet 20 mg PO DAILY 07/16/18 [History Last Taken 09/01/21] tamsulosin 0.4 mg capsule 0.4 mg PO DAILY 07/16/18 [History Last Taken 09/01/21] valproic acid 250 mg capsule 250 mg PO DAILY 07/16/18 [History Last Taken 09/01/21] cyclobenzaprine 10 mg tablet 10 mg PO BID PRN Muscle Spasm #12 TABLETS 10/11/20 [Rx Last Taken 09/01/21] hydrocodone-acetamin ophen 5-325mg 5mg-325mg 0.5 - 1 tab PO Q4H PRN PRN Pain 2 days #8 TABLETS 10/11/20 [Rx Last Taken Unknown] Allergy/AdvReac Type Severity Reaction Status Date / Time No Known Allergies Allergy Verified 07/16/18 21:51 Surgical History (Updated 09/01/21 @ 19:44 by Kait Hoyos) History of cholecystectomy Social History Smoking Status: Former smoker ROS ROS ED Constitutional Constitutional ED: Denies chills, fever(s) or sweats Eyes Eyes: Denies blurry vision or change in vision ENT ENT ED: Denies rhinorrhea or sore throat Cardiovascular Cardiovascular: Reports palpitations; Denies chest pain Respiratory/Chest Respiratory/Chest: Denies cough or dyspnea Gastrointestinal Gastrointestinal: Reports diarrhea; Denies abdominal pain or constipation Genitourinary Genitourinary ED: Denies dysuria or hematuria Musculoskeletal Musculoskeletal: Denies arthralgias or back pain Integumentary Denies abscess or Abrasions Neurologic Neurologic: Denies headache(s) or paresthesias Psychiatric Psychiatric: Denies anxiety or depression EXAM Physical Exam Const Vital Signs: 09/01/21 16:46 09/01/21 17:10 09/01/21 17:12 Temperature 97.4 F L Temperature Source Temporal Pulse Rate 45 L Respiratory Rate 22 H Respiratory Effort Normal Non-Labored Respiratory Pattern Normal Blood Pressure 104/79 Blood Pressure Mean 87 Pulse Ox 94 Oxygen Delivery Method Room Air Room Air Oxygen Flow Rate (L/min) 09/01/21 17:14 09/01/21 17:20 09/01/21 17:31 Temperature Temperature Source Pulse Rate 42 L 42 L Respiratory Rate 18 18 Respiratory Effort Respiratory Pattern Blood Pressure 87/49 L 94/43 L Blood Pressure Mean 61 60 Pulse Ox 92 94 Oxygen Delivery Method Room Air Nasal Cannula Oxygen Flow Rate (L/min) 2 09/01/21 17:55 09/01/21 18:53 09/01/21 19:05 Temperature Temperature Source Pulse Rate 42 L 46 L 51 L Respiratory Rate 18 18 16 Respiratory Effort Respiratory Pattern Blood Pressure 95/44 L 100/46 L 112/67 Blo (more content not included)... Normal [facility] Hematocrit Auto (Bld) [Volum e fraction]on 09-01-2021 Hematocrit (Bld) [Volume fraction] 41.2 % 40-54 [facility] Work Phone: [phone] 09-01-2021 TROPONIN-I HS 14 pg/mL Normal 3.0-78.0 [facility] Comment on above: Result Comment: Plea se Note: New Test Units and Gender Specific Reference Ranges. For more information see Policy Stat Procedure [place] High Sensitivity Troponin (TNIH) and attachments. Performed By: #### L 852.0896 #### [facility] [address] [place], [address] L532.0008on 09-01-2021 TROPONIN-I HS 18 pg/mL Normal 3.0-78.0 [facility] Comment on above: Order Comment: 1Y Result Comment: Deysi almanzar Note: New Test Units and Gender Specific Reference Ranges. For more information see Policy Stat Procedure [place] High Sensitivity Troponin (TNIH) and attachments. Performed By: #### L 500.2500, L503.6620, L100.0100, L501.5425 ####[facility] [address] [place], [address] Laboratory - Chemistry and C hemistry - challengeon 09-01-2021 Natriuretic peptide B (Bld) [Mass/Vol] 117.0 pg/mL 0-100 [facility] Work Phone: Laboratory - Hematology and Cell countson 09-01-2021 Erythrocyte distribution width (RBC) [Entitic vol] 39.9 fL 35.1-43.9 [facility] Work Phone: Erythrocyte distribution width (RBC) [Ratio] 12.7 % 11.6-14.6 [facility] Work Phone: Immature granulocytes/100 WBC (Bld) 0.800 % 0.0-0.9 [facility] Work Phone: Comment on above: IG% - Immature Granu locytes (promyelocytes, myelocytes and metamyelocytes) > 1% indicates that a LEFT SHIFT is Present. MCH (RBC) [Entitic mass] 29.0 pg 27.0-32.0 [facility] Work Phone: Nucleated RBC/100 WBC (Bld) [Ratio] 0 % 0-5 [facility] Work Phone: MCHC Auto (RBC) [Mass/Vol]on 09-01-2021 MCHC (RBC) [Mass/Vol] 33.7 g/dL 32-36 [facility] Work Phone: No Panel Informationon 09-01 Troponin I High Sensitivity 14 pg/mL 3.0-78.0 [facility] Work Phone: Comment on above: Please Note: New Luz t Units and Gender Specific Reference Ranges. For more information see Policy Stat Procedure [place] High Sensitivity Troponin (TNIH) and attachments. Valproic Acid (Depakene) Level < 3 ug/mL 50-100 [facility] Work Phone: Platelets bldon 09-01-2021 Platelets (Bld) [#/Vol] 266 10*3/uL 150-450 [facility] Work Phone: Valproic Acid (Depakene) Lev patsy 09-01-2021 VALPROIC ACID < 3 Low 50-100 [facility] Comment on above: Performed By: #### L [id number] #### [facility] [address] [place], [place], [address] XR COMPARISON IMPORTOrdered By: Provider System on 09-13-2020 This order has been auto-finalized and does not contain a result. [facility] XR WRIST RIGHT 2 VIEWSon XR WRIST RIGHT 2 VIEWS EXAMINATION: XR WRIST RIGHT 2 VIEWS 09/11/2020 9:59 am HISTORY: ORDERING SYSTEM PROVIDED HISTORY: Pain, TECHNOLOGIST PROVIDED HISTORY: Illness/Other Reason for exam: right wrist pain Cancer History: u Surgery, RadiationHistory: u Encounter Type: Initial Additional signs and symptoms: pain shoots up arm at times ORDERING SYSTEM PROVIDED DIAGNOSIS CODES: R52 Pain COMPARISON: Right wrist radiographs dated 07/31/2020, report only. FINDINGS: Two views of the right wrist. No fracture. Mild degenerative narrowing of the 1st carpometacarpal and triscaphe articulations with subchondral sclerosis and small marginal osteophytes. There is also degenerative narrowing and sclerosis of the articulation of the lunate and capitate. No aggressive osseous lesions or bony demineralization. Normal soft tissues. IMPRESSION: No acute osseous abnormality. Mild degenerative arthropathy of the 1st carpometacarpal, triscaphe, and capitolunate articulations. WTW/ads Workstation ID: [id number] Dictated by: GABRIELA CARDOSO on WedSep 11, 2020 8:51:15 PM EDT Transcribed by: KEVIN MINOR on WedSep 11, 2020 9:36:54 PM EDT Finalized by: GABRIELA CARDOSO on WedSep 11, 2020 9:43:49 PM EDT [facility] Comment on above: Order Comment: Injur y/Trauma or Illness?:Illness/Other How long have you had these symptoms (acute/chronic)?:Acute Reason for exam?:right wrist pain History of cancer?:u Surgeries, chemotherapy, or radiation?:u Type of Exam?:Initial Additional signs and symptoms?:pain shoots up arm at times POC Glucoseon 02-21-2020 Glucose [Mass/Vol] 120 mg/dL High 65 - 99 mg/dL [facility] Interpretation and review of laboratory results Abnormal [facility] COVID-19, MOLECULARon 2019 SARS-CoV-2 (COVID-19) RNA REYES+probe Ql (Unsp spec) Not detected Normal Not Detected [facility] Comment on above: Result Comment: This test was performed under the FDA's Emergency Use Authorization (EUA). Testing was performed using the Simplexa SARS-CoV-2 assay (mana.bo) on the Liaison MDX platform. This test has not been approved for use in asymptomatic patients and its performance in this patient population has not been evaluated. Negative results do not rule out the presence of SARS-CoV-2/COVID-19. Fact sheets for this EUA can be found at the following links: For Healthcare Providers: https://www.fda.gov/media/846608/download For Patients: https://www.fda.gov/media/173455/download Performed By: #### L [id number] #### [facility] [address] [place] [address] Zia Robledo M.D. [id number] Vital Signs Date Time Vital Sign Value Performing Clinician Facility 11-10-2024 10: Body height 177.8 cm Kait Lynn MD Work Phone: [facility] 11-10-2024 10: Body mass index (BMI) [Ratio] 34.87 kg/m2 Kait Lynn MD Work Phone: [facility] 11-10-2024 10: Body weight 110.22 kg Kait Lynn MD Work Phone: [facility] 11-10-2024 10:11-0400 Diastolic blood pressure 76 mm[Hg] Kait Lynn MD Work Phone: [facility] 11-10-2024 10:11-0400 Heart rate 68 /min Kait Lynn MD Work Phone: [facility] 11-10-2024 10:11-0400 Systolic blood pressure 151 mm[Hg] Kait Lynn MD Work Phone: [facility] 05-08-2024 12:57-0500 Diastolic blood pressure 79 mm[Hg] Price Lisa BUILDING EQUIPMENT INSPECTOR-VACUUM METALIZING SUPERVISOR Work Phone: [facility] 05-08-2024 12:57-0500 Heart rate 72 /min Price Lisa BUILDING EQUIPMENT INSPECTOR-VACUUM METALIZING SUPERVISOR Work Phone: [facility] 05-08-2024 12:57-0500 Systolic blood pressure 160 mm[Hg] Price Lisa BUILDING EQUIPMENT INSPECTOR-VACUUM METALIZING SUPERVISOR Work Phone: [facility] 05-08-2024 12:56-0500 Body mass index (BMI) [Ratio] 35.15 kg/m2 Price Lisa BUILDING EQUIPMENT INSPECTOR-VACUUM METALIZING SUPERVISOR Work Phone: [facility] 05-08-2024 12:56-0500 Body weight 111.13 kg Price Lisa BUILDING EQUIPMENT INSPECTOR-VACUUM METALIZING SUPERVISOR Work Phone: [facility] 05-08-2024 12:56-0500 Respiratory rate 18 /min Pirce Lisa BUILDING EQUIPMENT INSPECTOR-VACUUM METALIZING SUPERVISOR Work Phone: [facility] 03-31-2024 09:50-0500 Body height 177.8 cm Kait Lynn MD Work Phone: [facility] 03-31-2024 09:50-0500 Body mass index (BMI) [Ratio] 34.87 kg/m2 Kait Lynn MD Work Phone: [facility] 03-31-2024 09:50-0500 Body temperature 98.2 [degF] Kait Lynn MD Work Phone: [facility] 03-31-2024 09:50-0500 Body weight 110.22 kg Kait Lynn MD Work Phone: [facility] 03-31-2024 09:50-0500 Diastolic blood pressure 72 mm[Hg] Kait Lynn MD Work Phone: [facility] 03-31-2024 09:50-0500 Heart rate 71 /min Kait Lynn MD Work Phone: [facility] 03-31-2024 09:50-0500 Systolic blood pressure 119 mm[Hg] Kait Lynn MD Work Phone: [facility] 04-05-2022 21:46-0500 Diastolic blood pressure 82 mm[Hg] [facility] 04-05-2022 21:46-0500 Heart rate 110 /min [facility] 04-05-2022 21:46-0500 Respiratory rate 23 /min [facility] 04-05-2022 21:46-0500 SaO2% (BldA) [Mass fraction] 94 % [facility] 04-05-2022 21:46-0500 Systolic blood pressure 145 mm[Hg] [facility] 04-05-2022 19:38-0500 Body height 177.8 cm [facility] 04-05-2022 19:38-0500 Body mass index (BMI) [Ratio] 35.4 kg/m2 [facility] 04-05-2022 19:38-0500 Body temperature 98.4 [degF] [facility] 04-05-2022 19:38-0500 Body weight 112.03 kg [facility] 09-03-2021 14:00-0400 Heart rate 53 /min [facility] Work Phone: 09-03-2021 13:06-0400 Diastolic blood pressure 80 mm[Hg] [facility] Work Phone: 09-03-2021 13:06-0400 Systolic blood pressure 140 mm[Hg] [facility] Work Phone: 09-03-2021 09:00-0400 Body temperature 97.7 [degF] [facility] Work Phone: 09-03-2021 09:00-0400 Respiratory rate 15 /min [facility] Work Phone: 09-03-2021 09:00-0400 SaO2% (BldA) [Mass fraction] 98 % [facility] Work Phone: 09-01-2021 23:41-0400 Inhaled oxygen concentration 32 % [facility] Work Phone: 09-01-2021 20:11-0400 Body height 177.8 cm [facility] Work Phone: 09-01-2021 20:11-0400 Body mass index (BMI) [Ratio] 36.4 kg/m2 [facility] Work Phone: 09-01-2021 20:11-0400 Body weight 115.3 kg [facility] Work Phone: 09-11-2020 09:49-0400 Body height 177.8 cm Jared Bravo MD Work Phone: [facility] 09-11-2020 09:49-0400 Body mass index (BMI) [Ratio] 38.17 kg/m2 Jared Bravo MD Work Phone: [facility] 09-11-2020 09:49-0400 Body weight 120.66 kg Jared Bravo MD Work Phone: [facility] 09-11-2020 09:49-0400 Diastolic blood pressure 59 mm[Hg] Jared Bravo MD Work Phone: [facility] 09-11-2020 09:49-0400 Heart rate 63 /min Jared Bravo MD Work Phone: [facility] 09-11-2020 09:49-0400 Systolic blood pressure 99 mm[Hg] Jared Bravo MD Work Phone: [facility] 03-06-2020 16:23-0500 BMI (Body Mass Index) 38.21 kg/m2 Sabina Weeks [facility] 03-06-2020 16:23-0500 Body Temperature 98.2 [degF] [facility] 03-06-2020 16:23-0500 Body weight 120.79 kg [facility] 03-06-2020 16:23-0500 BP Diastolic 74 mm[Hg] [facility] 03-06-2020 16:23-0500 BP Systolic 122 mm[Hg] [facility] 03-06-2020 16:23-0500 Height 177.8 cm [facility] 03-06-2020 16:23-0500 Pulse (Heart Rate) 61 /min [facility]é [facility] 03-06-2020 16:23-0500 Pulse Oximetry 91 % [facility] 02-21-2020 11:37-0500 BP Diastolic 63 mm[Hg] [facility] 02-21-2020 11:37-0500 BP Systolic 162 mm[Hg] [facility] 02-21-2020 11:37-0500 Pulse (Heart Rate) 53 /min [facility] 02-21-2020 11:37-0500 Pulse Oximetry 92 % [facility] 02-21-2020 11:37-0500 Respiratory Rate 19 /min [facility] 02-21-2020 11:19-0500 Body Temperature 97.81 [degF] [facility] 02-21-2020 09:27-0500 BMI (Body Mass Index) 36.59 kg/m2 Sabina Weeks [facility] 02-21-2020 09:27-0500 Body weight 115.[address] [facility] 02-21-2020 09:27-0500 Height 177.8 cm [facility] 01-29-2020 15:07-0500 BMI (Body Mass Index) 37.94 kg/m2 Sabina Weeks [facility] 01-29-2020 15:07-0500 Body Temperature 98.2 [degF] [facility] 01-29-2020 15:07-0500 Body weight 119.93 kg [facility] 01-29-2020 15:07-0500 BP Diastolic 72 mm[Hg] Sabina [facility] 01-29-2020 15:07-0500 BP Systolic 126 mm[Hg] [facility] 01-29-2020 15:07-0500 Height 177.8 cm [facility] 01-29-2020 15:07-0500 Pulse (Heart Rate) 63 /min [facility] 01-29-2020 15:07-0500 Pulse Oximetry 90 % [facility] Encounters Encounter Date Encounter Type Care Provider Facility Start: 01-15-2025 ambulatory REMIGIO BLACK [facility] Ambulatory Start: 11-10-2024 End: 11-10-2024 Office outpatient visit 40 minutes Kait Lynn MD Work Phone: [facility] Jaycee Hooper Comment on above: Parkinson's disease with dyskinesia and fluctuating manifestations (Primary Dx) Start: 05-08-2024 End: 05-08-2024 Office outpatient visit 40 minutes [facility] BUILDING EQUIPMENT INSPECTOR-VACUUM METALIZING SUPERVISOR Work Phone: [facility] Comment on above: Parkinson's disease without dyskinesia or fluctuating manifestations (Primary Dx) Start: 05-08-2024 End: 05-08-2024 ambulatory [facility] Ambulatory Start: 03-31-2024 End: 03-31-2024 Office outpatient new 60 minutes Kait Lynn MD Work Phone: [facility] Jaycee Hooper Comment on above: Parkinson's disease without dyskinesia, with fluctuating manifestations; Agitation requiring sedation protocol Start: 03-31-2024 End: 03-31-2024 ambulatory KAIT LYNN [facility] Start: 04-05-2022 End: 04-05-2022 [facility] Start: 04-05-2022 End: 04-05-2022 Emergency department patient visit [facility]-Emergency Department Start: 09-02-2021 Non-patient / Non-visit [facility] Phys[facility] Start: 09-02-2021 ambulatory Patel Blanco Facility:[facility] Start: 09-02-2021 End: 09-03-2021 Evaluation and management of inpatient [facility] Facility:[facility] Start: 09-02-2021 End: 09-03-2021 Evaluation and management of inpatient [facility]Progressive Care Unit Start: 09-01-2021 ambulatory Patel Blanco Facility:[facility] Start: 09-01-2021 Non-patient / Non-visit [facility] [facility] Start: 09-13-2020 End: 09-14-2020 ambulatory PROVIDER NOT IN SYSTEM [facility] Start: 09-13-2020 End: 09-13-2020 Subsequent hospital visit by physician Provider Not In System [facility] Radiology External Films Comment on above: Arrived Start: 09-11-2020 End: 09-12-2020 Refill Jared Bravo MD Work Phone: [facility] Comment on above: Pain in wrist, unspe cified laterality (Primary Dx) Start: 09-11-2020 End: 09-11-2020 Office outpatient new 30 minutes 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 CNP Work Phone: [facility] Comment on above: Pain in wrist, unspe cified laterality Start: 08-29-2020 End: 08-29-2020 Orders Only Jared Bravo MD Work Phone: [facility] Comment on above: Pain (Primary Dx) Start: 04-20-2020 End: 04-20-2020 Orders Only Lolis Carl Work Phone: [facility] Start: 03-06-2020 End: 03-06-2020 Office outpatient visit 15 minutes Sabina Weeks Work Phone: [facility] Gastroenterology Comment on above: Polyp of colon, unsp ecified part of colon, unspecified type (Primary Dx); Hemorrhoids, unspecified hemorrhoid type Start: 02-21-2020 End: 02-21-2020 ambulatory REMIGIO León JAMILAH [facility] Start: 02-21-2020 End: 02-21-2020 Subsequent hospital visit by physician Sabina Weeks Work Phone: [facility] Periop Comment on above: Encounter for colono scopy due to history of adenomatous colonic polyps; Encounter for colonoscopy due to history of adenomatous colonic polyps Start: 02-17-2020 End: 02-17-2020 ambulatory SABINA WEEKS [facility] Start: 01-29-2020 End: 01-29-2020 Office outpatient new 30 minutes Sabina Weeks Work Phone: [facility] Comment on above: Hx of colonic polyps Procedures Date Procedure Procedure Detail Performing Clinician Start: 04-05-2022 Plain chest X-ray Start: 04-05-2022 CT of head without contrast Start: 09-01-2021 [facility] Start: 09-13-2020 Radiographic imaging procedure External Transcribed Start: 02-21-2020 End: 02-21-2020 Colonoscopy Sabina box Work Phone: Start: 02-21-2020 Glucose [Mass/volume ] in Blood Sabina Weeks Work Phone: Plan of Treatment Date Care Activity Detail Author Start: 07-22-2030 DTaP/Tdap/Td Vaccines (2 - Td or Tdap) DTaP/Tdap/Td Vaccines (2 - Td or Tdap) [facility] Start: 02-20-2030 Screening for malignant neoplasm of colon [facility] Start: 11-13-2024 Influenza vaccination Influenza Vaccine (#1) [facility] Start: 07-17-2024 COVID-19 Vaccine ( season) COVID-19 Vaccine ( season) [facility] Start: 03-31-2024 End: 03-31-2025 MR Brain WO and W contrast IV MR brain w and wo IV contrast Imaging Routine Parkinson's Disease Without Dyskinesia, With Fluctuating Manifestations Expected: 03/31/2024, Expires: 03/31/2025 [facility] Service Area Work Phone: Comment on above: Expected: 03/31/2024, Expires: Start: 09-03-2021 Patient discharge [facility] Work Phone: Start: 09-02-2021 Referral to occupational therapist [facility] Work Phone: Start: 09-02-2021 Referral to service [facility] Work Phone: Start: 09-02-2021 Admission procedure [facility] Work Phone: Start: 09-01-2021 Following clinical pathway protocol [facility] Work Phone: Start: 09-01-2021 Assessment of risk of venous thromboembolism [facility] Work Phone: Start: 09-01-2021 Insertion of catheter into peripheral vein [facility] Work Phone: Start: 09-01-2021 Measuring intake and output [facility] Work Phone: Start: 09-01-2021 Providing care according to standard [facility] Work Phone: Start: 09-01-2021 Provision of activity privileges [facility] Work Phone: Start: 09-01-2021 [facility] Work Phone: Start: 09-01-2021 Admission procedure [facility] Work Phone: Start: 11-13-[address] [facility] Start: 09-11-2020 End: 09-11-2020 Patient encounter procedure 09/11/2020 Office Visit Orthopedic Surgery 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, VACUUM METALIZING SUPERVISOR [address] [place] [address] [phone] Jared Bravo MD [address] [place] [address] [phone] [facility] Start: 03-06-2020 End: 03-06-2020 Office Visit 03/06/2020 Office Visit Gastroenterology Sabina Weeks MD [address] [place] [address] [phone] [facility] Start: 02-21-2020 End: 02-21-2020 Hospital Encounter [facility] Per[facility] Comment on above: Encounter for colonoscopy due to history of adenomatous colonic polyps COLONOSCOPY Start: 02-17-2020 End: 02-17-2020 Office Visit 02/17/2020 Office Visit Lab Sabina Weeks MD [address] [place] [address] [phone] [facility] Start: 11-14-2019 Influenza vaccination given Sequential Influenza Vaccine (#1) [facility] Start: 2010 Fall risk assessment Falls Risk Assessment [facility] Start: 2010 Pneumococcal vaccination Pneumococcal Vaccine Age 65+ (1 of 2 - PCV13) [facility] Start: 2005 Hepatitis B Vaccines (1 of 3 - Risk 3-dose series) Hepatitis B Vaccines (1 of 3 - Risk 3-dose series) [facility] Start: 05-14-1995 Administration of herpes zoster vaccine Zoster Vaccines (1 of 2) [facility] Start: 05-14-1995 Pneumococcal vaccination Pneumococcal Vaccine (1 of 1 - PCV) [facility] Start: 05-14-1995 Screening for malignant neoplasm of colon [facility] Start: 05-14-1995 Zoster Vaccines (1 of 2) Zoster Vaccines (1 of 2) [facility] Start: 05-14-1967 DTaP/Tdap/Td Vaccines (1 - Tdap) DTaP/Tdap/Td Vaccines (1 - Tdap) [facility] Start: 1964 Hepatitis A Vaccines (1 of 2 - Risk 2-dose series) Hepatitis A Vaccines (1 of 2 - Risk 2-dose series) [facility] Start: 05-14-1963 Hepatitis C antibody, confirmatory test Hepatitis C Screening [facility] Start: 05-14-1963 Hepatitis C screening Hepatitis C Screening [facility] Start: 1961 COVID-19 Vaccine (1 of 2) COVID-19 Vaccine (1 of 2) [facility] Start: 1957 Adolescent depression screening assessment Depression Screening (PHQ9) [facility] Start: 1957 COVID-19 Vaccine (1) COVID-19 Vaccine (1) [facility] Start: 1957 Depression screening using PHQ-9 (Patient Health Questionnaire 9) score Depression Screening (PHQ9) [facility] Start: 05-14-1951 Pneumococcal Vaccine: Age 65+ (1 of 4 - PCV13) Pneumococcal Vaccine: Age 65+ (1 of 4 - PCV13) [facility] Start: 1948 History and physical examination, annual for health maintenance Wellness Visit [facility] Start: 1945 Fall risk assessment Falls Risk Assessment [facility] Start: 1945 Lipid panel Lipid Panel [facility] Start: 1945 Prostate specific antigen measurement PSA Level [facility] Start: 1945 Tetanus vaccination Tetanus: Every 10yrs [facility] Start: 1945 US scan of abdominal aorta Abdominal Aortic Ultrasound [facility] Start: 1945 Yearly Adult Physical Yearly Adult Physical [facility] Patient Education Understanding Tachycardia ED High Blood Pressure Hypertension [facility] Work Phone: Patient referral [facility] Work Phone: Procedure on tissue specimen [facility] Comment on above: Release Upon Ordering for 1 Occurrences starting 02/21/2020, 1 completed Immunizations Immunization Date Immunization Notes [facility] Provider [facility]-11-2023 influenza virus vaccine, unspecified formulation Kait Lynn MD Work Phone: [facility] Work Phone: 07-13-2021 Covid (Pfizer) [facility] 02-12-2021 Covid (Pfizer) [facility] 06-14-2019 Covid (Pfizer) [facility] 05-14-2019 Covid (Pfizer) [facility] Payers Date Payer Category Payer Self-pay [id number] 2021 Unknown [id number] 2016 [facility] ( and others) [id number] 2010 Medicare [id number] 1997 [facility] [id number] 1997 Unknown [id number] 29 1945 Unknown [id number] 1945 Unknown [id number] 1945 Unknown [id number] .903 1945 Unknown [id number] .903 1945 Unknown [id number] .[id number] 1945 Unknown [id number] .[id number] 1945 Unknown [id number] [id number] .903 Unknown [facility] [id number] Effective for all dates [id number] Unknown [id number] Unknown [id number] .462 Unknown [id number] .462 Unknown [id number] Unknown [id number] Social History Date Type Detail Facility Start: 01-29-2020 End: 03-31-2024 Tobacco smoking status NHIS Former smoker [facility] Start: 01-29-2020 End: 09-11-2020 Tobacco use and exposure Former user [facility] Start: 01-29-2020 End: 09-11-2020 Alcohol intake Lifetime non-drinker (finding) [facility] Start: 01-29-2020 History SDOH Alcohol Frequency 1 [facility] Start: 1945 [facility] Start: 04-28-2024 End: 05-08-2024 Exposure to SARS-CoV-2 (event) Not sure [facility] Start: 09-01-2021 End: 04-05-2022 Tobacco smoking status NHIS Unknown if ever smoked [facility] Start: 1945 Sex Assigned At Male W [facility] History of tobacco use Current smoker [facility] Work Phone: History of tobacco use Cigarette Smoker [facility] Work Phone: Start: 03-31-2024 Tobacco use and exposure Smokeless tobacco non-user [facility] Work Phone: Start: 03-31-2024 End: 11-10-2024 Alcoholic beverage intake Ex-drinker (finding) [facility] Work Phone: Start: 03-31-2024 End: 05-08-2024 History of Social function [facility] Start: 03-31-2024 End: 05-08-2024 Tobacco use panel [facility] Start: 03-31-2024 Tobacco Comment Quit smoking 1973 [facility] [facility] Work Phone: Start: 03-31-2024 Alcohol Comment Previously it was a problem stopped completely in 1973 [facility] Work Phone: Start: 02-06-2022 Sex Male [facility] Medical Equipment Procedure Code Equipment Code Equipment Original Text Equi pment Identifier Dates by Miscellaneous route . [id number] Goals Date Patient Goal Desired Activity /State Functional Status Date Assessment Result Facility 09-02-2021 Functional status Ambulates [facility] Work Phone: Mental Status Date Assessment Result Facility 04-05-2022 Cognitive function Level Of Cons ciousness Awake;Alert;Appropriate;Follow s Commands [facility] Work Phone: 09-02-2021 Cognitive function Voice/Name [facility] Work Phone: 09-02-2021 Cognitive function Appropriate;Cooperativ e [facility] Work Phone: Clinical Notes 09-11-2020 to 11-10-2024 Kait Lynn MD - 11/10/2024 10:00 AM EDTAlexbeto Gonzalez APRN-VACUUM METALIZING SUPERVISOR - 05/08/2024 1:00 PM ESTPatient InstructionsKait Lynn MD - 03/31/2024 10:00 AM EST Note Date & Type Note Facility 11-10-2024 History of Present illness Narrative [facility] Neurosurgery Diagnosis Yuli was seen today for dbs consult. Diagnoses and all orders for this visit: Parkinson's disease with dyskinesia and fluctuating manifestations Patient Discussion/Summary Today we discussed that you have a lot of concerns regarding moving forward with surgery. You are concerned about the diagnosis and if surgery will help you, but you are also very worried about poor outcomes, infection, and even the technology of the device. However, we also discussed that you feel very debilitated by many of your symptoms including your tremor, your shuffling gait, your dyskinesias, and the ups and downs with the medications. As such, at this time, I recommend proceeding as follows: I would like you to proceed forward with the DBS workup. This includes following up with [facility] to get the final results of your neuropsychology testing. This also includes getting in touch with neurology to determine if you should undergo a PATSY scan and or repeat levodopa response testing. If the of above follow-up evaluations show that you are not a candidate for surgery, then we have at least answered this question. Yet, if the above assessments show that you are a good candidate for surgery, then we will defer to you and your family to determine if proceeding forward would be meaningful for you. If you decide that your symptoms are greatly affecting your quality of life and proceeding forward with surgery is worth the risk, then I would like to see you again and we can discuss the procedure once more. We will then do everything in our power to get you through surgery as safely as possible. At this time, I will put you back into our queue for the DBS workup, and I will give you the phone numbers and names of different contacts in the neurology department. Provider Impressions 79 y.o. male with PD, most bothered by tremor R>L, both rest and action, but also affected by bradykinesia, slow/shuffling/stooped gait. At the time of our initial visit on 03/31/24, patient did not have any dyskinesias or significant motor fluctuations. Since that time, he completed LRT on 05/08 with [facility], with only 17% change noted with ON/OFF. He also completed his initial neuropsych visit [facility] on [facility] Baumann, however, he never returned for his final feedback session and report. During our DBS conference on 06/20, there was discussion regarding patient s partial response on LRT and possibility of symptoms being drug induced, as his onset was around the time of being started on Abilify. 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 Patient had subsequently decided against pursuing further DBS work-up, including PATSY scan or preop MRI. However, he recently had follow-up visit with Dr. Munson in 08/2024, at which time he reported worsening tremor, causing difficulty feeding himself, as well as worsening ambulation and falls. As such, he was advised to follow-up here to further discuss DBS surgery and resuming DBS work-up. Today the patient and his family were very hesitant to move forward with surgery given their concerns of the patient's wound healing and given that he is overall doing okay with his quality of life. They are also concerned that he is not good with technology and they have a lot of apprehension about moving forward. However, the patient is also still interested to know if he is a candidate for surgery and he is very debilitated by his tremor and by his shuffling gait as well as by the dyskinesias and motor fluctuations. As such, today we discussed the following plan: I recommended the patient continue with his DBS workup, which includes possibly obtaining a PATSY scan and or repeating the levodopa response testing. I also would like the patient to follow-up with Dr. [facility] to ensure that he is a candidate for surgery from a neuropsychology standpoint. If these follow-up evaluations demonstrate that the patient is not a good candidate for surgery, meaning that he might have a medication induced parkinsonism and/or there are other red flags that indicate that patient would not do well with surgery, then we have put this question to rest. However, if we find that the patient is a good candidate for surgery for his Parkinson symptoms, then then the ball is now in the patient's court. He and his family should regroup and reassess his overall function and his overall potential goals of surgery to determine if moving forward with surgery is something that he is comfortable doing. If the patient and his family decide that they would like to move forward with surgery, then we will do our part and ensuring he undergoes surgery as safely as possible, though we did rediscuss some of the risks with surgery again today. History of Present Illness Chief Complaint: Chief Complaint Patient presents with DBS Consult HPI: Yuli Lorenz is a 79 y.o. male with PD, most bothered by tremor R>L, both rest and action, but also affected by bradykinesia, slow/shuffling/stooped gait. At the time of our initial visit on 03/31/24, patient did not have any dyskinesias or significant motor fluctuations. Since that time, he completed LRT on 05/08 with [facility], with only 17% change noted with ON/OFF. He also completed his initial neuropsych visit [facility] on [facility]/[address] Baumann, however, he never returned for his final feedback session and report. During our DBS conference on 06/20, there was discussion regarding patient s partial response on LRT and possibility of symptoms being drug induced, as his onset was around the time of being started on Abilify. 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 Patient had subsequently decided against pursuing further DBS work-up, including PATSY scan or preop MRI. However, he recently had follow-up visit with Dr. Munson in 08/2024, at which time he reported worsening tremor, causing difficulty feeding himself, as well as worsening ambulation and falls. As such, he was advised to follow-up here to further discuss DBS surgery and resuming DBS work-up. Discussion from DBS Conference on 06/20/24: Pending Dr. Baumann for UNIT SECRETARY test result (patient never scheduled feedback session, so final report not available) Partial response on LRT (17%). Could this be drug induced? Onset around time he was started on abilify PATSY scan for medication induced parkinsonism (ordered, not completed) Uncontrolled diabetes, infection from skin biopsy and slowly healing wounds Today the patient and his family were very hesitant to move forward with surgery given their concerns of the patient's wound healing and given that he is overall doing okay with his quality of life. They are also concerned that he is not good with technology and they have a lot of apprehension about moving forward. However, the patient is also still interested to know if he is a candidate for surgery and he is very debilitated by his tremor and by his shuffling gait as well as by the dyskinesias and motor fluctuations. ROS: As noted in HPI. Previous History Medical History[1] Surgical History[2] Social History[3] Family History[4] Allergies[5] Current Outpatient Medications Medication Instructions acetaminophen (TYLENOL) 650 mg, Every 6 hours PRN amLODIPine (Norvasc) 2.5 mg tablet 1 tablet, Daily ARIPiprazole (ABILIFY) 10 mg, Daily RT aspirin 81 mg, Daily atorvastatin (Lipitor) 40 mg tablet 1 tablet, Nightly carbidopa-levodopa (Rytary) 48.75-195 mg capsule 3 capsules, 4 times daily chlorthalidone (HYGROTON) 25 mg cholecalciferol (VITAMIN D-3) 50 mcg clindamycin (Cleocin T) 1 % swab LORazepam (Ativan) 1 mg tablet Take 1 tablet 1 hour prior to your MRI. May repeat 15-30 minutes prior to your MRI. losartan (COZAAR) 100 mg magnesium oxide (Mag-Ox) 420 mg tablet 1 tablet, Daily melatonin 3 mg, Nightly metFORMIN (GLUCOPHAGE) 1,000 mg, 2 times daily (morning and late afternoon) metoprolol succinate XL (TOPROL-XL) 75 mg NIFEdipine ER (ADALAT CC) 60 mg, oral, Daily RT omega-3 fatty acids-fish oil 300-1,000 mg capsule 2 g, oral, Daily RT PARoxetine (PAXIL) 30 mg potassium chloride CR 20 mEq ER tablet 40 mEq primidone (Mysoline) 50 mg tablet 2 tablets, 3 times daily Rytary 48.75-195 mg capsule TAKE 3 CAPSULES BY MOUTH THREE TIMES A DAY FOR PARKINSON SYMPTOMS (DO NOT CRUSH; SWALLOW WHOLE) semaglutide 0.25 mg or 0.5 mg (2 mg/3 mL) pen injector Inject under the skin. spironolactone (Aldactone) 25 mg tablet 1 tablet, Daily tamsulosin (Flomax) 0.4 mg 24 hr capsule 2 capsules, Nightly Vitals BP 151/76 Pulse 68 Ht 1.778 m (5' 10) Wt 110 kg (243 lb) BMI 34.87 kg/m Physical Exam On exam today, patient's gait appears good without any shuffling and with the fast pace, though he has recently taken his medications. He has decreased arm swing bilaterally and slightly stooped posture. He has a notable resting tremor on the right upper extremity and very mild action tremor bilaterally. He has mild rigidity bilaterally. He has mild dyskinesias of the mouth. Results [1] No past medical history on file. [2] No past surgical history on file. [3] Social History Tobacco Use Smoking status: Former Types: Cigarettes Smokeless tobacco: Never Tobacco comments: Quit smoking 1973 Substance Use Topics Alcohol use: Not Currently Comment: Previously it was a problem stopped completely in 1973 Drug use: Never [4] No family history on file. [5] No Known Allergies documented in this encounter [facility] Work Phone: 05-08-2024 History of Present illness Narrative Images from the original note were not included. Subjective Yuli Lorenz is a 78 y.o. year old male who presents with Parkinson's Disease, here for follow up visit. HPI Here for LRT with . [facility] to discuss DBS surgery. DM is not well controlled. Adjusting meds R arm infection he did not call about but improving and looks better but still red and has a dissolvable stich that did not dissolve. Not painful, derm lesion was biopsied. He will be speaking with derm tomorrow. Abilify mg daily 3-4yrs Tried going without it for 1 week-no difference in sx. Denies ever having a Patsy scan. MOTOR SYMPTOMS +/- Comments Motor sx overall Progressing but no quickly Tremor + Bothersome, interferes w/ eating Resting tremor too Meds have not helped tremors Rigidity - Bradykinesia + Gait difficulty + Supposed to use cane all the time but not always FOG Falls + Early Winter PT - Exercise - Not often uses stationary often [facility] Meds Med Dose Time Rytary 195mg 3 caps 4 times a day 9-2-6-10 Primidone 50mg 2 tabs 3 times a day Latency unaware Wearing off none Side effects Dyskinesia None Pointed out lip pursing which is mild but not worse or better with Rytary, ongoing the past few yrs. Hallucinations None Other No OH sx +constipation (BM q3-4days, Metamucil, diet, drinks plenty of water) DBS Candidacy Why patient wants DBS I want to get rid of the shakes and would be quite happy Most bothersome symptom Tremor/interfering w/eating Onset symptoms 2020 PD diagnosis date 2020 Sx worse on R or L side R Onset of motor fluctuations/dyskinesias Medication history Carbidopa-levodopa, other meds do no sound familiar Gait impairment Past 3 yrs FOG Briefly Hallucinations Never Impulsivity/ICD Never Mood history: PTSD, depression, psychiatry at [facility]--mood is well controlled if on his meds Cognitive decline: notes STM is an issue Caregiver support (cannot help much) Also son lives with them Additional medical issues HTN, HLD, VALENTIN (on CPAP), COPD, BPH, and PTSD Neuropsychologic test [facility]ETARY testing pending next week Neurosurgical consult Dr. Lynn 03/31/24: 78 yo M with PD, most bothered by tremor R>L, both rest and action, but also affected by bradykinesia, slow/shuffling/stooped gait; no dyskinesias or significant motor fluctuations at this time. Has not yet had neuropsych (scheduled for May) or LRT. Still thinking about surgery, but if he moves forward, he wants to do it after his granddaughter's graduation in July. Pt would be a good candidate for STN DBS, as his goals are tremor, medication reduction, and improved gait/bradykinesia. Patient Health Questionnaire-2 Score: 0 Current Outpatient Medications: amLODIPine (Norvasc) 2.5 mg tablet, Take 1 tablet (2.5 mg) by mouth once daily., Disp: , Rfl: atorvastatin (Lipitor) 40 mg tablet, Take 1 tablet (40 mg) by mouth once daily at bedtime., Disp: , Rfl: chlorthalidone (Hygroton) 25 mg tablet, Take 1 tablet (25 mg) by mouth., Disp: , Rfl: cholecalciferol (Vitamin D-3) 50 MCG (2000 UT) tablet, Take 1 tablet (50 mcg) by mouth., Disp: , Rfl: clindamycin (Cleocin T) 1 % swab, , Disp: , Rfl: darifenacin (Enablex) 15 mg 24 hr tablet, TAKE ONE TABLET BY MOUTH EVERY DAY FOR FREQUENT URINATION, Disp: , Rfl: finasteride (Proscar) 5 mg tablet, TAKE ONE TABLET BY MOUTH EVERY DAY (DO NOT CRUSH), Disp: , Rfl: ketoconazole (NIZOral) 2 % cream, APPLY A SUFFICIENT AMOUNT EXTERNALLY EVERY DAY TO SCALY AREAS ON FACE, Disp: , Rfl: losartan (Cozaar) 100 mg tablet, Take 1 tablet (100 mg) by mouth., Disp: , Rfl: magnesium oxide (Mag-Ox) 420 mg tablet, Take 1 tablet (420 mg) by mouth once daily., Disp: , Rfl: metoprolol succinate XL (Toprol-XL) 25 mg 24 hr tablet, Take 3 tablets (75 mg) by mouth., Disp: , Rfl: Myrbetriq 50 mg tablet extended release 24 hr 24 hr tablet, TAKE ONE TABLET BY MOUTH EVERY DAY FOR FREQUENT URINATION (DO NOT CHEW, CRUSH OR SPLIT TABLET), Disp: , Rfl: PARoxetine (Paxil) 30 mg tablet, Take 1 tablet (30 mg) by mouth., Disp: , Rfl: potassium chloride CR 20 mEq ER tablet, Take 2 tablets (40 mEq) by mouth., Disp: , Rfl: primidone (Mysoline) 50 mg tablet, Take 2 tablets (100 mg) by mouth 3 times a day., Disp: , Rfl: Rytary 48.75-195 mg capsule, TAKE 3 CAPSULES BY MOUTH THREE TIMES A DAY FOR PARKINSON SYMPTOMS (DO NOT CRUSH; SWALLOW WHOLE), Disp: , Rfl: semaglutide 0.25 mg or 0.5 mg (2 mg/3 mL) pen injector, Inject under the skin., Disp: , Rfl: spironolactone (Aldactone) 25 mg tablet, Take 1 tablet (25 mg) by mouth once daily., Disp: , Rfl: tamsulosin (Flomax) 0.4 mg 24 hr capsule, Take 2 capsules (0.8 mg) by mouth once daily at bedtime., Disp: , Rfl: acetaminophen (TylenoL) 325 mg tablet, Take 2 tablets (650 mg) by mouth every 6 hours if needed for mild pain (1 - 3) or moderate pain (4 - 6)., Disp: , Rfl: ARIPiprazole (Abilify) 10 mg tablet, Take 1 tablet (10 mg) by mouth once daily., Disp: , Rfl: aspirin 81 mg EC tablet, Take 1 tablet (81 mg) by mouth once daily., Disp: , Rfl: LORazepam (Ativan) 1 mg tablet, Take 1 tablet 1 hour prior to your MRI. May repeat 15-30 minutes prior to your MRI., Disp: 2 tablet, Rfl: 0 metFORMIN (Glucophage) 1,000 mg tablet, Take 1 tablet (1,000 mg) by mouth 2 times daily (morning and late afternoon)., Disp: , Rfl: NIFEdipine ER (NIFEdipine CC) 60 mg 24 hr tablet, Take 1 tablet (60 mg) by mouth once daily., Disp: , Rfl: omega-3 fatty acids-fish oil 300-1,000 mg capsule, Take 2 capsules (2,000 mg) by mouth once daily., Disp: , Rfl: Objective Vitals: 05/08/24 1256 05/08/24 1257 BP: 162/85 160/79 BP Location: Left arm Right arm Patient Position: Sitting Standing BP Cuff Size: Large adult Large adult Pulse: 69 72 Resp: 18 Weight: 111 kg (245 lb) Physical Exam Some intermittent lip pursing on and off meds unchanged (he mentions for a few yrs)--possibly more TD like. Wide based gait, almost absent arm swing, unchanged on/off meds. Overall not much difference on and off meds. MDS UPDRS 1st Score: Motor Examination Is the patient on medication for treating the symptoms of Parkinson's Disease?: Yes Patients receiving medication for treating the symptoms of Parkinson's Disease, regine the patient's clinical state.: On Is the patient on Levodopa?: Yes Minutes since last Levodopa dose: 16hrs 20mins Speech: 1 Facial Expression: 3 Rigidty Neck: 0 Rigidty RUE: 1 Rigidity - LUE: 1 Rigidity RLE: 0 Rigidity LLE: 0 Finger Tapping Right Hand: 1 Finger Tapping Left Hand: 2 Hand Movements- Right Hand: 1 Hand Movements- Left Hand: 0 Pronatiaon-Supination Movments - Right Hand: 1 Pronatiaon-Supination Movments Left Hand: 1 Toe Tapping Right Foot: 1 Toe Tapping - Left Foot: 2 Leg Agility - Right Le Leg Agility - Left le Arising from Chair: 1 Gait: 2 Freezing of Gait: 0 Postural Stability: 3 Posture: 1 Global Spontanteity of Movment ( Body Bradykinesia): 2 Postural Tremor - Right Hand: 1 Postural Tremor - Left hand: 1 Kinetic Tremor - Right hand: 1 Kinetic Tremor - Left hand: 0 Rest Tremor Amplitude - RUE: 2 Rest Tremor Amplitude - LUE: 1 (briefly) Rest Tremor Amplitude - RLE: 1 (seen after video taping LRT, intermittent) Rest Tremor Amplitude - LLE: 0 Rest Tremor Amplitude - Lip/Jaw: 0 Constancy of Rest Tremor: 2 MDS UPDRS Total Score: 36 Were dyskinesias (chorea or dystonia) present during examination?: No MDS UPDRS 2nd Score: Motor Examination Is the patient on medication for treating the symptoms of Parkinson's Disease?: Yes Patients receiving medication for treating the symptoms of Parkinson's Disease, regine the patient's clinical state.: Off Is the patient on Levodopa?: Yes Minutes since last Levodopa dose: 75mins Speech: 1 Facial Expression: 2 Rigidty Neck: 0 Rigidty RUE: 0 Rigidity - LUE: 1 Rigidity RLE: 0 Rigidity LLE: 0 Finger Tapping Right Hand: 1 Finger Tapping Left Hand: 1 Hand Movements- Right Hand: 1 Hand Movements- Left Hand: 3 (worse?) Pronatiaon-Supination Movments - Right Hand: 0 Pronatiaon-Supination Movments Left Hand: 1 Toe Tapping Right Foot: 1 Toe Tapping - Left Foot: 1 Leg Agility - Right Le Leg Agility - Left le Arising from Chair: 1 Gait: 2 Freezing of Gait: 0 Postural Stability: 3 Posture: 1 Global Spontanteity of Movment ( Body Bradykinesia): 2 Postural Tremor - Right Hand: 1 Postural Tremor - Left hand: 0 Kinetic Tremor - Right hand: 1 Kinetic Tremor - Left hand: 0 Rest Tremor Amplitude - RUE: 1 Rest Tremor Amplitude - LUE: 1 Rest Tremor Amplitude - RLE: 0 Rest Tremor Amplitude - LLE: 0 Rest Tremor Amplitude - Lip/Jaw: 0 Constancy of Rest Tremor: 1 MDS UPDRS Total Score: 30 Were dyskinesias (chorea or dystonia) present during examination?: No Assessment/Plan Mr. Yuli Lorenz is a 78 y.o. M with PD since 2020, [facility] Munson, who presented for Deep Brain Stimulation educational visit. Today we reviewed a PowerPoint on DBS to discuss risks, benefits, treatment plan and followup required that may take 6 to 12 months to achieve stable benefit, also showed images of the lead and battery, discussed the 3 types of systems available and allowed the patient to ask any questions-summary in patient AVS. All questions were answered. He is concerned about infection, has one on his arm from derm removal for biopsy (did not require antibiotics and much improved but still with redness and swelling)---not sure he wants DBS but wants to complete workup. He is also on Abilify 10mg, says he held for 1 week without change in sx, has not had Patsy scan. Lip pursing is mild/intermittent on exam. [facility] in [facility] [place] miles away--would recommend [employer], but he is not tech savvy but his son does live with him, he has Wifi. LRT OFF-36 ON- 30 Not much change off/on, tremor is the most bothersome and mild improvement. Diagnoses and all orders for this visit: Parkinson's disease without dyskinesia or fluctuating manifestations # Deep Brain Stimulation (DBS) helps treat the motor symptoms of Parkinson's disease (including tremor, slowness, stiffness, motor fluctuations).We discussed freezing of gait may not respond, or only temporarily, as the disease progresses can worsen. It can also help with night time mobility as the therapy is on 24 hours a day, and therefore can help with sleep. It does not treat non-motor symptoms (such as anxiety, depression, urinary issues, sleep problems, cognitive decline, balance problems, speech, swallowing, etc). In fact, it can worsen balance/falls, cognition/memory/thinking, and speech - if these are major issues, then DBS may not be the best treatment. After DBS surgery, people are usually able to reduce (though not eliminate) their Parkinson's medications. It may take up to 6-12 months to optimize DBS settings after surgery. We discussed possible risks including stroke and infection in the redd-operative period, but please plan to discuss these risks in more detail with our neurosurgeon. Reversible stimulation induced side effects include tingling and pulling from spread of stimulation to surrounding areas. We discussed possible cognitive side effects including word finding difficulties as well as executive dysfunction (attention,recall, multitasking). We discussed that DBS is not a cure, but helps the motor symptoms, and we also discussed that it is an on going therapy with frequent visits. -The DBS will help with: slowness, stiffness, tremor, shuffling, motor fluctuations (due to medications wearing off), dyskinesias (wiggly movements) -The DBS will NOT help with: cognition, urinary issues, mood, hallucinations, and certain midline symptoms such as postural instability, balance problems, freezing of gait, speech There are the steps needed prior to getting DBS (in no particular order): Neuropsychological testing (several hours of cognitive testing to evaluate for mild cognitive impairment or dementia) Levodopa response testing in clinic (neurologic exam 12hrs OFF of Parkinson's meds and 1hr after taking Parkinson's medications) Consultation with the neurosurgeon After above is completed, your case will be discussed at our bi-monthly DBS meeting and we will let you know if you are a candidate and set up the steps if you would like to proceed. More information about DBS can be found online at: - www.parkinson.org/sites/default/f talha/Guide_to_DBS_Stimulation_The emelia.pdf - www.ninds.nih.gov/Disorders/All-D isorders/Fstk-Wqnoh-Bxayiscjrqg-P btpgyloda-Djyxtua-Ykyawxqlxcv-Pag e #For constipation: If below not helpful, let primary care doctor know Try Miralax once a day for constipation + colace stool softener daily OR start with below but goal is to have a bowel movement EVERY DAY. Recs provided. #Follow up as scheduled with WILLIAM De La Cruz, personally performed a medically appropriate exam, discussion of care/treatment options taking a total time of 90 minutes for today's visit. RASHAD Quinteros Adult/Gerontological Nurse Practitioner [facility], Department of Neurology Neurological [facility] [id number] [place] [address] [place] [address] documented in this encounter [facility] Work Phone: 05-08-2024 Instructions CARLEY Acosta - 05/08/2024 1:00 PM EST # Deep Brain Stimulation (DBS) helps treat the motor symptoms of Parkinson's disease (including tremor, slowness, stiffness, motor fluctuations).We discussed freezing of gait may not respond, or only temporarily, as the disease progresses can worsen. It can also help with night time mobility as the therapy is on 24 hours a day, and therefore can help with sleep. It does not treat non-motor symptoms (such as anxiety, depression, urinary issues, sleep problems, cognitive decline, balance problems, speech, swallowing, etc). In fact, it can worsen balance/falls, cognition/memory/thinking, and speech - if these are major issues, then DBS may not be the best treatment. After DBS surgery, people are usually able to reduce (though not eliminate) their Parkinson's medications. It may take up to 6-12 months to optimize DBS settings after surgery. We discussed possible risks including stroke and infection in the redd-operative period, but please plan to discuss these risks in more detail with our neurosurgeon. Reversible stimulation induced side effects include tingling and pulling from spread of stimulation to surrounding areas. We discussed possible cognitive side effects including word finding difficulties as well as executive dysfunction (attention,recall, multitasking). We discussed that DBS is not a cure, but helps the motor symptoms, and we also discussed that it is an on going therapy with frequent visits. -The DBS will help with: slowness, stiffness, tremor, shuffling, motor fluctuations (due to medications wearing off), dyskinesias (wiggly movements) -The DBS will NOT help with: cognition, urinary issues, mood, hallucinations, and certain midline symptoms such as postural instability, balance problems, freezing of gait, speech There are the steps needed prior to getting DBS (in no particular order): Neuropsychological testing (several hours of cognitive testing to evaluate for mild cognitive impairment or dementia) Levodopa response testing in clinic (neurologic exam 12hrs OFF of Parkinson's meds and 1hr after taking Parkinson's medications) Consultation with the neurosurgeon After above is completed, your case will be discussed at our bi-monthly DBS meeting and we will let you know if you are a candidate and set up the steps if you would like to proceed. More information about DBS can be found online at: - www.parkinson.org/sites/default/f talha/Guide_to_DBS_Stimulation_The emelia.pdf - www.ninds.nih.gov/Disorders/All-D isorders/Nkjx-Fpjhy-Mkjrdpwkjpt-P roxpzqyxw-Ynfkxoq-Andpfdrnwve-Pag e #For constipation: If below not helpful, let primary care doctor know Try Miralax once a day for constipation + colace stool softener daily OR start with below but goal is to have a bowel movement EVERY DAY. As you increase your fiber, do this slowly, adding a few grams every 5-7 days to avoid stomach upset and or worsening of constipation. -Adequate water EVERY DAY (at least eight 8oz glasses) -regular exercise/being active is important -bananas are constipating! So are refined grains - white rice, regular pasta (whole wheat pasta and brown rice ok) -eat 2 tbsp of ground flax seed and or kain seeds per day -consider taking 1 tbsp of olive oil per day -if you drink coffee in the morning, try to go every morning after your coffee (it is a laxative) -you can also try a probiotic, which you can find at natural food stores or vitamin stores, or online, or you can get through foods. Foods with probiotics include yogurt and fermented foods like pickles, sauerkraut, kimchee-but read the label. If you do this, make sure you store it in a cool dark place, as light damages it. If a low-concentration formula doesn't work, you may respond to a higher concentration. -smooth move tea at night - the longer you steep, the stronger it is, so be careful -if this is not enough, call my office for further instructions #Follow up as scheduled with Dr. Shaikh Price Gonzalez, UNIT SECRETARY-C Adult/Gerontological Nurse Practitioner [facility], Department of Neurology Neurological [place] [address] [place] [phone] documented in this encounter [facility] Work Phone: 03-31-2024 History of Present illness Narrative [facility] Neurosurgery Diagnosis Diagnoses and all orders for this visit: Parkinson's disease without dyskinesia, with fluctuating manifestations - MR brain w and wo IV contrast; Future Agitation requiring sedation protocol Patient Discussion/Summary 1) We discussed Deep brain stimulation (DBS) surgery at length, as well as the associated risks and benefits. We discussed the different methods of performing the surgery, as well as the different types of devices commonly used. We also discussed surgical targets in the brain with significant evidence supporting their efficacy. 2) Prior to surgery, you will need levadopa response testing, neuropsychology evaluation, and a volumetric MRI, which needs to be done at either [facility] or [facility]. You may need to take a dose of Ativan prior to the MRI to minimize head/body movement. 3) Your case will then be presented at our multi-disciplinary care conference. At this conference, our team of neurologists, neurosurgeons, neuropsychologists, and advanced practice nurses will review and discuss the levodopa response testing, neuropsychological results, neurological evaluations, and the high resolution structural MRI. A treatment plan will be developed and tailored to your specific needs. You will subsequently be notified of the recommendations of the group. 4) If we decide to proceed to surgery, we will also need a volumetric head CT and an evaluation by our redd-operative anesthesia team. 5) For more information on DBS in general, please refer to the National Parkinson Foundation website, www.parkinson.org, which has a booklet of information on the surgery. Similar information can also be found on the Parkinson Disease Foundation website. Provider Impressions 78 yo M with PD, most bothered by tremor R>L, both rest and action, but also affected by bradykinesia, slow/shuffling/stooped gait; no dyskinesias or significant motor fluctuations at this time. Has not yet had neuropsych (scheduled for May) or LRT. Still thinking about surgery, but if he moves forward, he wants to do it after his granddaughter's graduation in July. Pt would be a good candidate for STN DBS, as his goals are tremor, medication reduction, and improved gait/bradykinesia. History of Present Illness Chief Complaint: No chief complaint on file. HPI: Yuli Lorenz is a right-handed 78 y.o. male with PMH of HTN, HLD, VALENTIN (on CPAP), COPD, BPH, and PTSD, with tremor-predominant PD diagnosed in 2020, referred here by [facility]. Mun[facility] to discuss DBS surgery. Patient presents today with his . He reports noticing tremor in both of his hands about 3-4 years ago, right worse than left. He lived with this for about a year, and then was suggested by his PCP to see neurology. Patient reports he was diagnosed PD and was placed C/L, which was not significantly helpful, so was transitioned to primidone. He does not feel this has been significantly helpful, and dosing was recently increased. Patient reports that over the last year his tremor has worsened, now affecting the legs, as well as increasing slowness and shuffling gait. He has also noticed increasing cramping in the toes, and occas the legs. He denies any significant rigidity, and has not noticed any FOG or dyskinesias. Patient also reports worsening swallowing difficulties and choking, and is undergoing evaluation with speech therapy at the [facility], which he feels has been helping. His notes some fluctuations of his symptoms between dosing, though, this is not at noticeable to the patient. Patient follows with psychiatry for history of PTSD and depression, and feels his symptoms are well controlled. He also reports some mild forgetfulness over the last couple of years, and reports strong history of dementia in his female relatives. Goals of surgery: Patient is most interested in addressing his tremor, which is increasingly impacting his eating, writing, and self care. Though, patient notes some concerns regarding the safety of proceeding with DBS surgery, particularly regarding his age and risk of stroke. Patient and his currently live with their son, who assists with some of their care. Of note, patient was scheduled for neuropsych at the [facility] last week, however, his patient was recovering from RSV, so this has been rescheduled to May. Also of note, patient is on ASA for primary prevention, without history of cardiac issues. Echo in 03/2023 showed normal EF, no wall motion abnormalities, and no significant valvular pathology. Zio Patch from 04/2020 showed predominant NSR without pauses or AV block, and rare ectopy. Remote nuclear stress test in 09/2013 was negative for ischemia. ROS: As noted in HPI. Previous History No past medical history on file. No past surgical history on file. Social History Tobacco Use Smoking status: Former Types: Cigarettes Smokeless tobacco: Never Tobacco comments: Quit smoking 1973 Substance Use Topics Alcohol use: Not Currently Comment: Previously it was a problem stopped completely in 1973 Drug use: Never No family history on file. No Known Allergies Current Outpatient Medications Medication Instructions acetaminophen (TYLENOL) 650 mg, oral, Every 6 hours PRN aspirin 81 mg, oral, Daily Vitals BP 119/72 Pulse 71 Temp 36.8 C (98.2 F) Ht 1.778 m (5' 10) Wt 110 kg (243 lb) BMI 34.87 kg/m Physical Exam Constitutional: Well appearing. No acute distress. Musculoskeletal: No visible deformity of joints and nails. Normal ROM. Orientation: Oriented to self, place, and time Language: Fluid speech and intact cognition CN 2: Normal CN 3, 4, and 6: Normal CN 5: Normal CN 7: Normal CN 8: Normal CN 9 and 10: Normal CN 11: Normal CN 12: Normal Muscle strength: Full and equal strengths throughout UE and LE. Muscle tone: No notable rigidity on exam. Gait and station: Slow, deliberate and mildly stooped gait with shuffling steps. Sensation: Grossly intact throughout all dermatomes. No allodynia. Reflexes: Symmetric and normal deep tendon reflexes throughout. Negative Moore's sign. No clonus at ankles. Coordination: Reduced fine motor skills with finger and foot tapping, worse on right. Mood and Affect: Appropriate mood and affect. Involuntary Movement: Bilateral resting tremor in bilateral UE and LE, right>left, with mild to moderate action tremor on R, brought out more with provocation. documented in this encounter [facility] Work Phone: 04-05-2022 Discharge summary Note Date/Time April 05, 2022 8:05pm [facility] Medical Records Department [address] [place] [address] Emergency Department Summary 04/05/22 MR#: [id number] Acct: [id number] Name: YULI LORENZ Rep #:[id number] : 1945 76 From: Vinh Chacon MD PCP: [facility] Status:REG ER Location: ED HPI History of Present Illness Chief Complaint: General Illness Narrative Narrative: 76-year-old male past medical history of hypertension noticed around noon that he felt lightheaded with a slight headache. He states that his heart rate was high, above 100, and he had elevated blood pressure. He relates history that hewas admitted previously to the hospital here and he had low blood pressure. Thecardiologist here took him off all his medications and slowly added some back. He is not quite sure what he takes for blood pressure control but states he tookhis blood pressure after 12:00 in the afternoon, almost 8 hours ago and noticed it was high. He continues to have lightheadedness and a high heart rate. He denies any nausea or vomiting. No shortness of breath. No reasons for dehydration except loose stool/diarrhea. He was concerned mainly about his elevated blood pressure, and his high heart rate. [facility] Medical History Anxiety CPAP (continuous positive airway pressure) dependence Depression Diabetes Former smoker HTN (hypertension) Hypercholesteremia Kidney stones PTSD (post-traumatic stress disorder) Sleep apnea Home Medications aspirin 81 mg chewable tablet 81 mg PO DAILY@0800 heart health 02/22/13 [History Last Taken 09/01/21] potassium chloride 20 meq PO DAILY supplement 02/22/13 [History Last Taken 09/01/21] atorvastatin 80 mg tablet (Lipitor) 80 mg PO DAILY cholesterol 07/16/18 [History Last Taken 08/31/21] losartan 100 mg tablet 100 mg PO DAILY blood pressure 07/16/18 [History Last Taken 09/01/21] metformin 1,000 mg tablet 1,000 mg PO BID diabetes 07/16/18 [History Last Taken 09/01/21] mirabegron 25 mg tablet,extended release 24 hr (Myrbetriq) 25 mg PO DAILY bladder 07/16/18 [History Last Taken 09/01/21] paroxetine HCl 20 mg tablet 30 mg PO DAILY mental health 07/16/18 [History Last Taken 09/01/21] tamsulosin 0.4 mg capsule 0.4 mg PO DAILY prostate 07/16/18 [History Last Taken 09/01/21] hydrocodone-acetaminophen 5-325mg 5mg-325mg 0.5 - 1 tab PO Q4H PRN PRN Pain 2 days #8 TABLETS 10/11/20 [Rx Last Taken Unknown] chlorthalidone 25 mg tablet 25 mg PO DAILY blood pressure 09/01/21 [History Last Taken Unknown] cholecalciferol (vitamin D3) 50 mcg (2,000 unit) tablet 50 mcg PO DAILY vitamin 09/01/21 [History Last Taken Unknown] darifenacin 15 mg tablet,extended release 24 hr 15 mg PO DAILY bladder 09/01/21 [History Last Taken Unknown] finasteride 5 mg tablet 5 mg PO DAILY prostate 09/01/21 [History Last Taken Unknown] magnesium oxide 420 mg tablet 420 mg PO DAILY supplement 09/01/21 [History Last Taken Unknown] spironolactone 25 mg tablet 25 mg PO DAILY diuretic 09/01/21 [History Last Taken Unknown] triamcinolone acetonide 0.1 % topical cream 1 applic topical BID PRN Dry Skin 09/01/21 [History Last Taken Unknown] cyclobenzaprine 10 mg tablet 25 mg PO BID PRN Muscle Spasm 04/05/22 [History Last Taken Unknown] furosemide 20 mg tablet (Lasix) 20 mg PO DAILY 04/05/22 [History Last Taken Unknown] Allergy/AdvReac Type Severity Reaction Status Date / Time No Known Allergies Allergy Verified 04/05/22 20:05 Surgical History History of cholecystectomy Social History Smoking Status: Former smoker ROS ROS ED ROS Narrative Constitutional: No fever, no chills. HEENT: No sore throat. No neck pain. No loss of vision. No rhinorrhea. Cardiovascular: No chest pain. No palpitations, but noticed high heart rate. No pedal edema. Respiratory: No cough, no shortness of breath. Abdominal: No abdominal pain. No nausea. No vomiting. Genitourinary: No dysuria. No hematuria. Musculoskeletal: No myalgias. No arthralgias. Neurologic: Mild headaches. No dizziness. Positive lightheadedness. Skin: No rash. No change in color. Psychiatric: No depression. No anxiety. EXAM Physical Exam Narrative Exam Narrative: Afebrile. Vital signs noted. Noted blood pressure of 199/112 HEENT: Normocephalic. Atraumatic. PERRL, EOMI. Neck soft and supple. No pointtenderness or step off. Cardiovascular: Regular rate and rhythm with intermittent tachycardia. No murmurs, rubs, or gallops appreciated. Respiratory: No tachypnea. Lungs clear to auscultation bilaterally. Gastrointestinal: Abdomen soft, nontender, with normoactive bowel sounds. No rebound or guarding. Neurological: Awake. Alert. Nonfocal, nonlateralizing. Skin: No rash. Normal color. No pallor. Musculoskeletal: No pedal edema. Full range of motion extremities. Const Vital Signs: 04/05/22 19:38 04/05/22 19:59 04/05/22 20:06 Temperature 98.4 F Temperature Source Temporal Pulse Rate 108 H 101 H Respiratory Rate 16 20 H Respiratory Effort Normal Non-Labored Respiratory Pattern Normal Blood Pressure 199/112 H 165/71 H Blood Pressure Mean 141 102 Pulse Ox 95 Oxygen Delivery Method Room Air Room Air 04/05/22 20:41 04/05/22 21:36 Temperature Temperature Source Pulse Rate 97 87 Respiratory Rate 28 H 23 H Respiratory Effort Respiratory Pattern Blood Pressure 121/78 H 163/85 H Blood Pressure Mean 92 111 Pulse Ox 93 Oxygen Delivery Method Room Air MDM MDM MDM Narrative Medical decision making narrative: Comprehensive work-up was pursued. In the differential diagnosis is intracranial hemorrhage from hypertension. He is only slightly tachycardic, Jonathan will look for signs of dehydration with basic laboratory work including CBC and CMP. We will also obtain a troponin. EKG will be obtained to rule out dysrhythmia such as atrial fibrillation. I did review his inpatient hospital discharge instructions. Throughout his course, he was hypotensive and bradycardic anywhere from 40 to 51 bpm. He was taken off his metoprolol 12.5 mgand Cardizem. His losartan and spironolactone was added back. EKG was obtained and interpreted by myself which demonstrates normal sinus rhythm at 98 bpm without ectopy or acute ST changes. No STEMI. Initially, his blood pressure was 199/112, but has come down to 163/85. He has no longer tachycardic. I reviewed his laboratory work and he has a normal white count of 9.3 with hemoglobin 15.4, hematocrit 44.1. Platelet count normal at 202. Potassium slightly low at 3.4 which I think is nonspecific, BUN of 24 and a creatinine of 1.07. He has slightly elevated AST and ALT at 50 and 92 respectively. High-sensitivity troponin is 42 and below the upper limit. This is a 6-hour troponin. CT of the brain was obtained and I reviewed the radiologyreport, there is no acute process or hemorrhage. Chest x-ray in 1 view was interpreted by myself and I see no evidence of pneumothorax or infiltrate. I reviewed the radiology report and agree. They confirm that there is no acute process. At this point in time, I will leave any medication adjustments to his primary care provider or the die cast supervisor that he sees at the [facility]. I see no emergent reason to add any other medication. His blood pressure has come down to 145/82 and he gets an intermittent tachycardia just above 100. I feel he canbe discharged safely home with follow-up. Return instructions to the emergency department were reviewed. Disposition is discharged home in stable condition. Lab Data Attestation: I reviewed the patient's lab results. Labs: Laboratory Results - last 24 hr 04/05/22 04/05/22 19:57 19:57 WBC 9.3 RBC 5.18 Hgb 15.4 Hct 44.1 MCV 85.1 MCH 29.7 MCHC 34.9 RDW Std Deviation 38.2 RDW Coeff of Pat 12.4 Plt Count 202 MPV 9.1 Immature Gran % (Auto) 0.300 Neut % (Auto) 58.2 Lymph % (Auto) 27.8 [place] % (Auto) 7.5 Eos % (Auto) 5.9 H Baso % (Auto) 0.3 Absolute Neuts (auto) 5.4 Absolute Lymphs (auto) 2.57 Nucleated RBC % 0 Sodium 138 Potassium 3.4 L Chloride 102 Carbon Dioxide 26.0 Anion Gap 10 BUN 24 H Creatinine 1.07 Estim Creat Clear Calc 60.64 Est GFR (MDRD) Af Amer 86 Est GFR (MDRD) Non-Af 71 BUN/Creatinine Ratio 22.4 H Glucose 120 H Calcium 9.4 Total Bilirubin 0.70 AST 50 H ALT 92 H Alkaline Phosphatase 62 Troponin I High Sens 42 Total Protein 7.7 Albumin 3.7 Globulin 4.0 Albumin/Globulin Ratio 0.9 Radiography Diagnostic Testing: Clinical Impression(s) from Imaging Studies Brain CT 04/05/22 19:53 IMPRESSION: There are no acute intracranial findings. Electronically Signed: Raymond Chacon MD at 20:48 EST , Chest X-Ray 04/05/22 19:57 IMPRESSION: No acute radiographic abnormalities. Electronically Signed: Mustapha Andrade MD at 20:27 EST , Discharge Plan Triage Chief Complaint: General Illness ED Provider: Vinh Chacon Dx/Rx/DC Orders Clinical Impression: HTN (hypertension), Tachycardia Instructions: Understanding Tachycardia, ED High Blood Pressure Hypertension Prescriptions: No Action aspirin 81 MG tablet,chewable 81 mg PO DAILY@0800 potassium chloride 20 meq PO DAILY atorvastatin [Lipitor] 80 MG tablet 80 mg PO DAILY tamsulosin 0.4 MG capsule 0.4 mg PO DAILY Rx Instructions: for eczema paroxetine HCl 20 MG tablet 30 mg PO DAILY metformin 1,000 MG tablet 1,000 mg PO BID losartan 100 MG tablet 100 mg PO DAILY Myrbetriq 25 MG tablet extended release 24 hr 25 mg PO DAILY hydrocodone-acetaminophen 1 TABLET tablet 0.5 - 1 tab PO Q4H PRN PRN (Reason: Pain) 2 Days Qty: 8 0RF chlorthalidone 25 mg Tablet 25 mg PO DAILY finasteride 5 mg Tablet 5 mg PO DAILY darifenacin 15 mg Tablet Extended Release 24 Hr 15 mg PO DAILY cholecalciferol (vitamin D3) 50 mcg (2,000 unit) Tablet 50 mcg PO DAILY magnesium oxide 420 mg Tablet 420 mg PO DAILY spironolactone 25 mg Tablet 25 mg PO DAILY Rx Instructions: take 1/2 tablet a day triamcinolone acetonide 0.1 % Cream 1 applic TOPICAL BID PRN (Reason: Dry Skin) cyclobenzaprine 10 MG tablet 25 mg PO BID PRN (Reason: Muscle Spasm) furosemide [Lasix] 20 mg Tablet 20 mg PO DAILY [facility] [[facility] Provider] - 1-2 Days if not improving Disposition Disposition: Home, Self Care What to do if you have Problems For any increased pain, shortness of breath, bleeding, nausea or vomiting, chestpain, or any unexpected problems, contact your Primary Care Provider. Call [facility] ([phone]) or report to the closest Emergency Room. Call 911 if necessary. 04/05/222148 <Electronically signed by Vinh Chacon MD> Cosigner Signature (if applicable): CC: [facility] ~ Signed [facility] Work Phone: 1(265) 736-323806-22-[address] [facility] Medical Records Department [address] [place] [id number] Discharge Summary 09/03/21 1203 MR#: [id number] Acct: [id number] Name: YULI LORENZ Rep #: [id number] : 1945 76 From: Anu Blackman MD [facility]CP[facility] Status:DIS IN Location: [facility] [id number] Providers Date of Admission: 09/02/21 Date of Discharge: 09/03/21 [facility] Care Physician: [facility] Reason For Visit: SYMPTOMATIC BRADYCARDIA Diagnosis Discharge Diagnosis (1) Parkinson disease: Status: Acute Code(s): G20 - Parkinson's disease (2) HTN (hypertension): Status: Chronic Code(s): I10 - Essential (primary) hypertension (3) Bradycardia with 41-50 beats per minute: Status: Acute Code(s): R00.1 - Bradycardia, unspecified Medications at Discharge Home Medications aspirin 81 mg chewable tablet 81 mg PO DAILY@0800 heart health 02/22/13 potassium chloride 20 meq PO DAILY supplement 02/22/13 aripiprazole 5 mg tablet (Abilify) 5 mg PO DAILY memory 07/16/18 atorvastatin 80 mg tablet (Lipitor) 80 mg PO DAILY cholesterol 07/16/18 losartan 100 mg tablet 100 mg PO DAILY blood pressure 07/16/18 metformin 1,000 mg tablet 1,000 mg PO BID diabetes 07/16/18 mirabegron 25 mg tablet,extended release 24 hr (Myrbetriq) 25 mg PO DAILY bladder 07/16/18 paroxetine HCl 20 mg tablet 30 mg PO DAILY mental health 07/16/18 tamsulosin 0.4 mg capsule 0.4 mg PO DAILY prostate 07/16/18 valproic acid 250 mg capsule 250 mg PO DAILY seizures 07/16/18 cyclobenzaprine 10 mg tablet 10 mg PO BID PRN Muscle Spasm #12 TABLETS 10/11/20 hydrocodone-acetaminophen 5-325mg 5mg-325mg 0.5 - 1 tab PO Q4H PRN PRN Pain 2 days #8 TABLETS 10/11/20 carbidopa 25 mg-levodopa 100 mg tablet 2.5 tab PO 4X/DAY parkinsons 09/01/21 chlorthalidone 25 mg tablet 25 mg PO DAILY blood pressure 09/01/21 cholecalciferol (vitamin D3) 50 mcg (2,000 unit) tablet 50 mcg PO DAILY vitamin 09/01/21 darifenacin 15 mg tablet,extended release 24 hr 15 mg PO DAILY bladder 09/01/21 finasteride 5 mg tablet 5 mg PO DAILY prostate 09/01/21 magnesium oxide 420 mg tablet 420 mg PO DAILY supplement 09/01/21 spironolactone 25 mg tablet 25 mg PO DAILY diuretic 09/01/21 triamcinolone acetonide 0.1 % topical cream 1 applic topical BID PRN Dry Skin 09/01/21 Hospital Course Operations None Procedures None Summary of Care Provided Minutes Spent on Discharge: 35 Hospital Course: 76-year-old male with past medical history hypertension, hyperlipidemia, Parkinson's disease, on metoprolol and nifedipine who comes in with dizziness that started on the day of admission. He presented to the emergency department, his blood pressure was in the 70s systolic. He is also on losartan. Patient had admitted to some diarrhea 3 days prior. He has been eating and drinking well however. He was found to be bradycardic and hypotensive. His blood pressure was 93/46. Patient stated that his blood pressures usually around 100 systolic. Patient had evidence of elevated creatinine of 1.70. He received IV fluid boluses with improvement in his blood pressure. EKG shows sinus bradycardia. Patient was admitted to the PCU and taken off metoprolol and Cardizem. His heart rate continued to improve. He had elevated blood pressure and was started on spironolactone as well as continuing his losartan. His blood pressure is better controlled at time of discharge. He was not discharged on metoprolol or nifedipine. He will follow-up with his primary care doctor within 1 week. He was asked to monitor his blood pressures and heart rate closely. Physical Exam Narrative Physical exam: General: Alert, Oriented x3, Cooperative, No apparent distress HEENT: Atraumatic Oral: Moist Mucosa Neck: Supple Lungs: Clear to auscultation Cardiovascular: HS I+II, regular, no murmurs Abdomen: Bowel Sounds Present, Soft, Non Tender Extremities: No edema Skin: No rashes, No breakdown Neurological: Grossly intact Psych/Mental Status: Appropriate Weight / BMI Weight Weight: 115.3 kg Body Mass Index (BMI) 36.4 ABG / Lab / Microbiology Data Result Diagrams: 09/01/21 17:10 09/02/21 05:55 D/C Instructions Discharge Diet: Low fat / Low cholesterol and 2000 mg Sodium Diet Meaningful Use Info Meaningful Use Diagnoses (Choose all that apply): None applicable Discharge Plan Admission Admit Date/Time: 09/02/21 10:26 Primary Reason for Your Visit: Symptomatic bradycardia Attending Provider: Anu Blackman Primary Care Provider: [facility],[place] Consulting Providers: Patle Blanco Instructions Additional Instructions / Restrictions: Take note of changes to your medications. Continue to measure your blood pressure every day Follow-up with your primary care doctor within a week for blood pressure evaluation Discharge Orders/Prescriptions Prescriptions: Continued aspirin 81 MG t (more content not included)...[facility] 09-01-2021 [facility] Medical Records Department [address] [place] [address] History Physical Exam 09/01/211931 MR#: [id number] Acct: [id number] Name: YULI LORENZ Rep #: [id number] : 1945 76 From: Patel Blanco MD PCP: CHARAN Gasca Status:ADM SUSANA Location: [place] [address] HPI - General General Date of Admission: 09/01/21 Date of Service: 09/01/21 Chief Complaint: dizzy and lightheaded HPI Narrative YLUI LORENZ, is a 76 M who presents to the emergency room with chief complaint of dizziness and lightheadedness. Onset of symptoms began approximately 3:00 this afternoon when the patient stood up from his chair he felt dizzy and lightheaded but did not pass out. The patient denies any chest pain shortness of breath fever or chills and/or nausea and vomiting. Patient has significant past medical history of Parkinson's disease and hypertension for which he takes a beta-casie and a calcium channel casie. He was noted to have symptomatic bradycardia in the emergency room with negative troponin and a slight increase in his creatinine from his baseline. Currently the patient still complains of some mild lightheadedness while resting in bed. Patient will be admitted to progressive care unit for observation and hold his beta-casie and calcium channel casie overnight. [facility] Medical History (Updated 09/01/21 @ 19:[address] Patel Blanco MD) HTN (hypertension) Hypercholesteremia Home Medications Potassium Citrate 10 meq PO DAILY 02/22/13 [History Last Taken 09/01/21] aspirin 81 mg chewable tablet 81 mg PO DAILY@0800 02/22/13 [History Last Taken 09/01/21] aripiprazole 5 mg tablet (Abilify) 5 mg PO DAILY 07/16/18 [History Last Taken 09/01/21] atorvastatin 80 mg tablet (Lipitor) 80 mg PO DAILY 07/16/18 [History Last Taken 08/31/21] losartan 100 mg tablet 100 mg PO DAILY 07/16/18 [History Last Taken 09/01/21] metformin 1,000 mg tablet 1,000 mg PO BID 07/16/18 [History Last Taken 09/01/21] metoprolol succinate 25 mg tablet,extended release 24 hr 12.5 mg PO DAILY 07/16/18 [History Last Taken 09/01/21] mirabegron 25 mg tablet,extended release 24 hr (Myrbetriq) 25 mg PO DAILY 07/16/18 [History Last Taken 09/01/21] nifedipine 60 mg tablet,extended release 24 hr 60 mg PO DAILY 07/16/18 [History Last Taken 09/01/21] paroxetine HCl 20 mg tablet 20 mg PO DAILY 07/16/18 [History Last Taken 09/01/21] tamsulosin 0.4 mg capsule 0.4 mg PO DAILY 07/16/18 [History Last Taken 09/01/21] valproic acid 250 mg capsule 250 mg PO DAILY 07/16/18 [History Last Taken 09/01/21] cyclobenzaprine 10 mg tablet 10 mg PO BID PRN Muscle Spasm #12 TABLETS 10/11/20 [Rx Last Taken 09/01/21] hydrocodone-acetaminophen 5-325mg 5mg-325mg 0.5 - 1 tab PO Q4H PRN PRN Pain 2 days #8 TABLETS 10/11/20 [Rx Last Taken Unknown] Allergy/AdvReac Type Severity Reaction Status Date / Time No Known Allergies Allergy Verified 07/16/18 21:51 Social History Smoking Status: Former smoker ROS Cardiovascular Cardiovascular: Reports slow heart rate Neurologic Neurologic: Reports tremor(s) Vital Signs Vital Signs Vital Signs: 09/01/21 16:46 09/01/21 17:10 09/01/21 17:12 Temperature 97.4 F L Temperature Source Temporal Pulse Rate 45 L Respiratory Rate 22 H Respiratory Effort Normal Non-Labored Respiratory Pattern Normal Blood Pressure 104/79 Blood Pressure Mean 87 Pulse Ox 94 Oxygen Delivery Method Room Air Room Air Oxygen Flow Rate (L/min) 09/01/21 17:14 09/01/21 17:20 09/01/21 17:31 Temperature Temperature Source Pulse Rate 42 L 42 L Respiratory Rate 18 18 Respiratory Effort Respiratory Pattern Blood Pressure 87/49 L 94/43 L Blood Pressure Mean 61 60 Pulse Ox 92 94 Oxygen Delivery Method Room Air Nasal Cannula Oxygen Flow Rate (L/min) 2 09/01/21 17:55 09/01/21 18:53 09/01/21 19:05 Temperature Temperature Source Pulse Rate 42 L 46 L 51 L Respiratory Rate 18 18 16 Respiratory Effort Respiratory Pattern Blood Pressure 95/44 L 100/46 L 112/67 Blood Pressure Mean 61 64 82 Pulse Ox 99 Oxygen Delivery Method Room Air Oxygen Flow Rate (L/min) Weight Weight: 253 lb Body Mass Index (BMI) 36.3 Physical Exam Const oriented x3 General Appearance: cooperative HEENT normocephalic and head/scalp atraumatic Eyes PERRL Neck nuchal rigidity, no lymphadenopathy, supple, no JVD, thyroid normal, nodes and no carotid bruits Lymph Lymphatic: no lymphadenopathy noted, no lymphedema noted, lymphedema, lymphadenopathy and other Resp normal respiratory effort, normal air movement and clear to auscultation bilaterally Cardio regular rate, S1 normal heart sound and S2 normal heart sound Rate: bradycardia GI s (more content not included)...[facility]06-30-2021 History of Present illness Narrative* Jared Bravo MD - 09/11/2020 10:20 AM EDT [facility] [address] ([address]) [facility] [address] [facility] [phone] Yuli Lorenz is a 75 y.o. male being seen today, 09/11/20, Chief Complaint Patient presents with Right Wrist - Pain [chief complaint] right wrist forearm pain HPI Dictation: Reports fall approximately 2 years ago he complains of pain over the wrist and distal ulna with forearm x-rays showing evidence of prior injury the scapholunate joint with widening andleast some element of wrist arthritis with dedicated wrist x-rays showing similar findings [hpi] Physical Exam Dictation: [PE] he does seem to be a mild effusion tenderness over the dorsal aspect of the distal radius ulnaand wrist joint Assessment and Plan Dictation: [AP] findings as noted conservative treatment recommended did provide prescription for Voltaren gelas well as meloxicam return. I have reviewed all relevant histories, medications, allergies, and problem list items with Yuli Lorenz during this visit. Review of Systems Constitutional: Negative for chills and fever. HENT: Negative for congestion. Respiratory: Negative for shortness of breath. Cardiovascular: Negative for chest pain. Gastrointestinal: Negative for diarrhea, nausea and vomiting. Neurological: Negative for headaches. Psychiatric/Behavioral: Negative for behavioral problems. BP (!) 99/59 Pulse 63 Ht 5' 10 Wt 120.7 kg (266 lb) BMI 38.17 kg/m Imaging: No results found. 1. Pain in wrist, unspecified laterality Ambulatory referral to Orthopedics Return if symptoms worsen or fail to improve. Jared Bravo MD [facility]* Diagnosis Pain- Primary Generalized pain [facility] Diagnosis Pain in wrist, unspecified [facility] Pain in wrist, unspecified laterality- [facility] Diagnosis Onset Date Resolution Status Bradycardia with 41-50 beats per minute acute Parkinson disease acute HTN (hypertension) chronic [facility] Work Phone: Evaluation noteNo assessment information available [facility] Work Phone: Evaluation note* Diagnosis Parkinson's disease without dyskinesia, with fluctuating manifestations Agitation requiring sedation protocol documented in this encounter [facility] Work Phone: Evaluation note* Diagnosis Parkinson's disease without dyskinesia or fluctuating manifestations- Primary documented in this encounter [facility] Work Phone: Evaluation note* Diagnosis Parkinson's disease with dyskinesia and fluctuating manifestations- Primary documented in this encounter [facility] Work Phone: History of Present Illness * Sabina Weeks MD - 01/29/2020 3:28 PM EST Yuli Lorenz 74 y.o. 1945 male Reason for Consult: Screening colonoscopy high risk HPI: 74-year-old male with history of hypertension sleep apnea morbid obesity chronic lung disease colonpolyp was referred to me for surveillance colonoscopy his last colonoscopy was 3 years ago. He denies any bright red blood per rectum or melena or abdominal pain he says he has constipation off and on and sometimes has bright red blood per rectum from his anal fissure. No family history of any colon cancer. Past Medical History: Past Medical History: Diagnosis Date Chronic lung disease Colon polyp Hearing loss of both ears Lumbago PTSD (Post-Traumatic Stress Disorder) Sleep apnea Steatosis of liver Urge incontinence Surgical History & Procedures: Past Surgical History: Procedure Laterality Date COLONOSCOPY three years ago Social History: Social History Socioeconomic History Marital status: Spouse name: Not on file Number of children: Not on file Years of education: Not on file Highest education level: Not on file Occupational History Not on file Social Needs Financial resource strain: Not on file Food insecurity Worry: Not on file Inability: Not on file Transportation needs Medical: Not on file Non-medical: Not on file Tobacco Use Smoking status: Former Smoker Smokeless tobacco: Former User Substance and Sexual Activity Alcohol use: Never Frequency: Never Drug use: Never Sexual activity: Not on file Lifestyle Physical activity Days per week: Not on file Minutes per session: Not on file Stress: Not on file Relationships Social connections Talks on phone: Not on file Gets together: Not on file Attends taoist service: Not on file Active member of club or organization: Not on file Attends meetings of clubs or organizations: Not on file Relationship status: Not on file Other Topics Concern Not on file Social History Narrative Not on file Current Medications: Current Outpatient Medications Medication Sig Dispense Refill ARIPiprazole (ABILIFY) 10 MG tablet Take 10 mg by mouth daily . aspirin 81 MG EC tablet Take 81 mg by mouth daily . atorvastatin (LIPITOR) 40 MG tablet Take 40 mg by mouth daily . chlorthalidone (HYGROTEN) 25 MG tablet Take 25 mg by mouth daily . cholecalciferol, vitamin D3, 1,000 unit tablet Take 1,000 Units by mouth daily . darifenacin (ENABLEX) 15 mg 24 hr tablet Take 15 mg by mouth daily . furosemide (LASIX) 20 MG tablet Take 20 mg by mouth 2 (two) times a day . glipiZIDE (GLUCOTROL XL) 2.5 MG 24 hr tablet Take 2.5 mg by mouth daily . lancets Misc by Miscellaneous route . losartan (COZAAR) 100 MG tablet Take 100 mg by mouth daily . magnesium oxide (MAG-OX) 400 mg (241.3 mg magnesium) tablet Take 400 mg by mouth daily . metFORMIN (GLUCOPHAGE) 1000 MG tablet Take 1,000 mg by mouth 2 (two) times a day with meals . metoprolol succinate (TOPROL-XL) 100 MG 24 hr tablet Take 100 mg by mouth daily . mirabegron (MYRBETRIQ) 50 mg Tb24 Take 50 mg by mouth daily . NIFEdipine (ADALAT CC) 60 MG 24 hr tablet Take 60 mg by mouth daily . omega-3 fatty acids/fish oil (fish oil-omega-3 fatty acids) 300-1,000 mg capsule Take 2 g by mouth daily . PARoxetine (PAXIL) 10 MG tablet Take 10 mg by mouth daily . potassium chloride 10 MEQ CR tablet Take 20 mEq by mouth 2 (two) times a day . No current facility-administered medications for this visit. Review of Systems Constitutional: Negative for appetite change and unexpected weight change. HENT: Negative for voice change. Respiratory: Negative for cough, choking and shortness of breath. Cardiovascular: Negative for chest pain and leg swelling. Gastrointestinal: Positive for anal bleeding and constipation. Negative for abdominal pain, blood in stool, diarrhea, nausea, rectal pain and vomiting. Genitourinary: Negative for hematuria. Musculoskeletal: Negative for arthralgias and joint swelling. Skin: Negative for pallor. Neurological: Negative for dizziness, tremors and weakness. Hematological: Negative for adenopathy. Does not bruise/bleed easily. Psychiatric/Behavioral: Negative for confusion. Physical Exam Constitutional: Appearance: Normal appearance. Eyes: Pupils: Pupils are equal, round, and reactive to light. Cardiovascular: Pulses: Normal pulses. Heart sounds: Normal heart sounds. Pulmonary: Breath sounds: Normal breath sounds. Abdominal: General: Bowel sounds are normal. Palpations: Abdomen is soft. There is no mass. Tenderness: There is no abdominal tenderness. Skin: Coloration: Skin is not jaundiced. Neurological: General: No focal deficit present. Mental Status: He is alert and oriented to person, place, and time. Psychiatric: Behavior: Behavior normal. No visits with results within 30 Day(s) from this visit. Latest known visit with results is: No results found for any previous visit. Assessment & Plan: Screening colonoscopy high risk as patient has a history of adenomatous colon polyp his last colonoscopy was 3 years ago. He is scheduled for colonoscopy on February 20 at 10:30 AM at surgery center. Sabina Weeks MD documented in this encounter* Sabina Weeks MD - 03/06/2020 5:01 PM EST Yuli Lorenz 74 y.o. 1945 male Changes since last visit: 74-year-old male had surveillance colonoscopy and found to have #1 4 mm sessile polyp in cecum which was benign #2 external hemorrhoid. Patient is doing well since procedure no rectal bleeding or abdominal pain or change in bowel habit. Past Medical History: Past Medical History: Diagnosis Date Arthritis Chronic lung disease Colitis Colon polyp Diabetes mellitus, type 2 (HCC) Edema Hearing loss of both ears Hypertension Lumbago Nephrolithiasis PTSD (Post-Traumatic Stress Disorder) Sleep apnea Steatosis of liver Urge incontinence Surgical History & Procedures: Past Surgical History: Procedure Laterality Date CHOLECYSTECTOMY COLONOSCOPY N/A 02/21/2020 Procedure: COLONOSCOPY w polypectomy; Surgeon: Sabina Weeks MD; Location: [facility]; Service: Gastroenterology COLONOSCOPY three years ago COLONOSCOPY 02/2020 ORTHOPEDIC SURGERY TONSILLECTOMY Social History: Social History Socioeconomic History Marital status: Spouse name: Not on file Number of children: Not on file Years of education: Not on file Highest education level: Not on file Occupational History Not on file Social Needs Financial resource strain: Not on file Food insecurity Worry: Not on file Inability: Not on file Transportation needs Medical: Not on file Non-medical: Not on file Tobacco Use Smoking status: Former Smoker Smokeless tobacco: Former User Substance and Sexual Activity Alcohol use: Never Frequency: Never Drug use: Never Sexual activity: Not on file Lifestyle Physical activity Days per week: Not on file Minutes per session: Not on file Stress: Not on file Relationships Social connections Talks on phone: Not on file Gets together: Not on file Attends taoist service: Not on file Active member of club or organization: Not on file Attends meetings of clubs or organizations: Not on file Relationship status: Not on file Other Topics Concern Not on file Social History Narrative Not on file Current Medications: Current Outpatient Medications Medication Sig Dispense Refill ARIPiprazole (ABILIFY) 10 MG tablet Take 10 mg by mouth daily . aspirin 81 MG EC tablet Take 81 mg by mouth daily . atorvastatin (LIPITOR) 40 MG tablet Take 40 mg by mouth daily . chlorthalidone (HYGROTEN) 25 MG tablet Take 25 mg by mouth daily . cholecalciferol, vitamin D3, 1,000 unit tablet Take 1,000 Units by mouth daily . darifenacin (ENABLEX) 15 mg 24 hr tablet Take 15 mg by mouth daily . furosemide (LASIX) 20 MG tablet Take 20 mg by mouth 2 (two) times a day . glipiZIDE (GLUCOTROL XL) 2.5 MG 24 hr tablet Take 2.5 mg by mouth daily . lancets Misc by Miscellaneous route . losartan (COZAAR) 100 MG tablet Take 100 mg by mouth daily . magnesium oxide (MAG-OX) 400 mg (241.3 mg magnesium) tablet Take 400 mg by mouth daily . metFORMIN (GLUCOPHAGE) 1000 MG tablet Take 1,000 mg by mouth 2 (two) times a day with meals . metoprolol succinate (TOPROL-XL) 100 MG 24 hr tablet Take 100 mg by mouth daily . mirabegron (MYRBETRIQ) 50 mg Tb24 Take 50 mg by mouth daily . NIFEdipine (ADALAT CC) 60 MG 24 hr tablet Take 60 mg by mouth daily . omega-3 fatty acids/fish oil (fish oil-omega-3 fatty acids) 300-1,000 mg capsule Take 2 g by mouth daily . PARoxetine (PAXIL) 10 MG tablet Take 10 mg by mouth daily . potassium chloride 10 MEQ CR tablet Take 20 mEq by mouth 2 (two) times a day . No current facility-administered medications for this visit. Review of Systems Constitutional: Negative for appetite change and unexpected weight change. HENT: Negative for voice change. Respiratory: Negative for cough, choking and shortness of breath. Cardiovascular: Negative for chest pain and leg swelling. Gastrointestinal: Negative for abdominal pain, anal bleeding, blood in stool, constipation, diarrhea, nausea, rectal pain and vomiting. Genitourinary: Negative for hematuria. Musculoskeletal: Negative for arthralgias and joint swelling. Skin: Negative for pallor. Neurological: Negative for dizziness, tremors and weakness. Hematological: Negative for adenopathy. Does not bruise/bleed easily. Psychiatric/Behavioral: Negative for confusion. Physical Exam Constitutional: Appearance: Normal appearance. Eyes: Pupils: Pupils are equal, round, and reactive to light. Cardiovascular: Pulses: Normal pulses. Heart sounds: Normal heart sounds. Pulmonary: Breath sounds: Normal breath sounds. Abdominal: General: Bowel sounds are normal. Palpations: Abdomen is soft. There is no mass. Tenderness: There is no abdominal tenderness. Skin: Coloration: Skin is not jaundiced. Neurological: General: No focal deficit present. Mental Status: He is alert and oriented to person, place, and time. Psychiatric: Behavior: Behavior normal. Admission on 02/21/2020, Discharged on 02/21/2020 Component Date Value Ref Range Status Glucose 02/21/2020 120* 65 - 99 mg/dL Final Case Report 02/21/2020 Final Value:Surgical Pathology Report Case: [id number] Authorizing Provider: Sabina Weeks, Collected: 02/21/2020 11:13 AM Ordering Location: [facility] Received: 02/21/2020 12:22 PM Center Periop Pathologist: Thanh Vargas DO Specimen: Colon, Cecum Final Diagnosis 02/21/2020 Final Value:This result contains rich text formatting which cannot be displayed here. Clinical Information 02/21/2020 Final Value:This result contains rich text formatting which cannot be displayed here. Gross Description 02/21/2020 Final Value:This result contains rich text formatting which cannot be displayed here. Microscopic Description 02/21/2020 Final Value:This result contains rich text formatting which cannot be displayed here. Lab Draw on 02/17/2020 Component Date Value Ref Range Status SARS-CoV-2 02/17/2020 Not Detected Not Detected Final This test was performed under the FDA's Emergency Use Authorization (EUA). Testing was performed using the Simplexa SARS-CoV-2 assay (mana.bo) on the [employer] platform. This test has not been approved for use in asymptomatic patients and its performance in this patient population has not been evaluated. Negative results do not rule out the presence of SARS-CoV-2/COVID-19. Fact sheets for this EUA can be found at the following links: For Healthcare Providers: https://www.fda.gov/media/517685/download For Patients: https://www.fda.gov/media/209525/download Assessment & Plan: #1 colon polyp patient will need repeat colonoscopy in 5 years 2. External hemorrhoid I asked him to use high-fiber diet. Patient is referred back to primary care physician. 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 Advance Directives and Living Will Documents on File Type Date Recorded 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 Advance Directives and Livin g Will 02/21/2020 9:12 AM Documents on File Type Date Recorded 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 Advance Directives and Livin g Will 02/21/2020 9:12 AM Documents on File Type Date Recorded 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 Advance Directives and Livin g Will 09/11/2020 9:55 AM Advance Directive Response Recorded Date/ Time Name of Medical Power of Junior Web Developer September 01, 2021 5:12pm Advance Directives Yes April 20, 2016 4:29pm Living Will No September 01, 2021 7:44pm Power of Junior Web Developer No September 01 7:44pm Advance Directive Response Recorded Date/ Time Advance Directives Yes April 20, 2016 3:29pm Living Will Yes April 05 8:06pm Power of Junior Web Developer Yes April 05, 2022 8:06pm Name of Medical Power of Junior Web Developer NISREEN LORENZ - April 05, 2022 8:06pm Discharge Instructions * Attachments The following attachments cannot be sent through Care Everywhere. * Colon Polyps (Puerto Rican) * Hemorrhoids ([place]) * High-Fiber Diet ([place]) documented in this encounter Summary Purpose Family History No Family History Records FoundNo Family History Records FoundNo Family History Records FoundNo Family History Records FoundNo Family History Records FoundNo Family History Records Found Chief Complaint and Reason for Visit Chief Complaint SYMPTOMATIC BRADYCAR LEONA SYMPTOMATIC BRADYCARDIA SYMPTOMATIC BRADYCARDIA Reason for Visit Bradycardia with 41- 50 beats per minute Parkinson disease HTN (hypertension) Chief Complaint HTN, HEADACHE, WEAKN ESS Additional Source Comments Reason for Visit (unrecogniz ed section and content) Status Reason Specialty Diagnoses / Procedures Referred By Contact Referred To Contact Closed Gastroenterology Diagnoses Hx of colonic polyps 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, [employer]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 [address] [place] [address] Sabina Weeks MD [address] [place] [address] Status Reason Specialty Diagnoses / Procedures Referre d By Contact Referred To Contact Diagnoses Encounter for colonoscopy due to history of adenomatous colonic polyps Encounter for colonoscopy due to history of adenomatous colonic polyps [Z12.11, Z86.010] Procedures Colonoscopy Sabina Weeks MD [address] [id number] Reason Comments Pain Status Reason Specialty Diagnoses / Procedures Referred By Contact Referred To Contact Closed Sports Medicine Diagnoses Pain in wrist, unspecified laterality 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, [employer] [address] [place] [id number] Junior Houser MD [address] [place] [address] Reason Onset Date Comments Medication Refill 09/11/2020 Reason Comments Parkinson's Disease Reason Comments DBS Consult Sabina Weeks MD - 02/21/2020 10:55 AM EST H&P Notes (unrecognized sect ion and content) Progress Notes Yuli Lorenz 74 y.o. 1945 male Reason for Consult: Screening colonoscopy high risk HPI: 74-year-old male with history of hypertension sleep apnea morbid obesity chronic lung disease colon polyp was referred to me for surveillance colonoscopy his last colonoscopy was 3 years ago. He denies any bright red blood per rectum or melena or abdominal pain he says he has constipation off and on and sometimes has bright red blood per rectum from his anal fissure. No family history of any colon cancer. Past Medical History: Past Medical History: Diagnosis Date Chronic lung disease Colon polyp Hearing loss of both ears Lumbago PTSD (Post-Traumatic Stress Disorder) Sleep apnea Steatosis of liver Urge incontinence Surgical History & Procedures: Past Surgical History: Procedure Laterality Date COLONOSCOPY three years ago Social History: Social History Socioeconomic History Marital status: Spouse name: Not on file Number of children: Not on file Years of education: Not on file Highest education level: Not on file Occupational History Not on file Social Needs Financial resource strain: Not on file Food insecurity Worry: Not on file Inability: Not on file Transportation needs Medical: Not on file Non-medical: Not on file Tobacco Use Smoking status: Former Smoker Smokeless tobacco: Former User Substance and Sexual Activity Alcohol use: Never Frequency: Never Drug use: Never Sexual activity: Not on file Lifestyle Physical activity Days per week: Not on file Minutes per session: Not on file Stress: Not on file Relationships Social connections Talks on phone: Not on file Gets together: Not on file Attends taoist service: Not on file Active member of club or organization: Not on file Attends meetings of clubs or organizations: Not on file Relationship status: Not on file Other Topics Concern Not on file Social History Narrative Not on file Current Medications: Current Outpatient Medications Medication Sig Dispense Refill ARIPiprazole (ABILIFY) 10 MG tablet Take 10 mg by mouth daily . aspirin 81 MG EC tablet Take 81 mg by mouth daily . atorvastatin (LIPITOR) 40 MG tablet Take 40 mg by mouth daily . chlorthalidone (HYGROTEN) 25 MG tablet Take 25 mg by mouth daily . cholecalciferol, vitamin D3, 1,000 unit tablet Take 1,000 Units by mouth daily . darifenacin (ENABLEX) 15 mg 24 hr tablet Take 15 mg by mouth daily . furosemide (LASIX) 20 MG tablet Take 20 mg by mouth 2 (two) times a day . glipiZIDE (GLUCOTROL XL) 2.5 MG 24 hr tablet Take 2.5 mg by mouth daily . lancets Misc by Miscellaneous route . losartan (COZAAR) 100 MG tablet Take 100 mg by mouth daily . magnesium oxide (MAG-OX) 400 mg (241.3 mg magnesium) tablet Take 400 mg by mouth daily . metFORMIN (GLUCOPHAGE) 1000 MG tablet Take 1,000 mg by mouth 2 (two) times a day with meals . metoprolol succinate (TOPROL-XL) 100 MG 24 hr tablet Take 100 mg by mouth daily . mirabegron (MYRBETRIQ) 50 mg Tb24 Take 50 mg by mouth daily . NIFEdipine (ADALAT CC) 60 MG 24 hr tablet Take 60 mg by mouth daily . omega-3 fatty acids/fish oil (fish oil-omega-3 fatty acids) 300-1,000 mg capsule Take 2 g by mouth daily . PARoxetine (PAXIL) 10 MG tablet Take 10 mg by mouth daily . potassium chloride 10 MEQ CR tablet Take 20 mEq by mouth 2 (two) times a day . No current facility-administered medications for this visit. Review of Systems Constitutional: Negative for appetite change and unexpected weight change. HENT: Negative for voice change. Respiratory: Negative for cough, choking and shortness of breath. Cardiovascular: Negative for chest pain and leg swelling. Gastrointestinal: Positive for anal bleeding and constipation. Negative for abdominal pain, blood in stool, diarrhea, nausea, rectal pain and vomiting. Genitourinary: Negative for hematuria. Musculoskeletal: Negative for arthralgias and joint swelling. Skin: Negative for pallor. Neurological: Negative for dizziness, tremors and weakness. Hematological: Negative for adenopathy. Does not bruise/bleed easily. Psychiatric/Behavioral: Negative for confusion. Physical Exam Constitutional: Appearance: Normal appearance. Eyes: Pupils: Pupils are equal, round, and reactive to light. Cardiovascular: Pulses: Normal pulses. Heart sounds: Normal heart sounds. Pulmonary: Breath sounds: Normal breath sounds. Abdominal: General: Bowel sounds are normal. Palpations: Abdomen is soft. There is no mass. Tenderness: There is no abdominal tenderness. Skin: Coloration: Skin is not jaundiced. Neurological: General: No focal deficit present. Mental Status: He is alert and oriented to person, place, and time. Psychiatric: Behavior: Behavior normal. No visits with results within 30 Day(s) from this visit. Latest known visit with results is: No results found for any previous visit. Assessment & Plan: Screening colonoscopy high risk as patient has a history of adenomatous colon polyp his last colonoscopy was 3 years ago. He is scheduled for colonoscopy on February 20 at 10:30 AM at surgery center. patient is ready for procedure Sabina Weeks MD documented in this encounter Brandy Andrade RN - 02/21/2020 11:54 AM Marilynn Carnes RN - 02/21/2020 9:28 AM EST Nursing Notes (unrecognized section and content) Discharge instructions reviewed with pt. - copy to pt. Nisreen molina patient colon, PH #[phone] documented in this encounter (unrecognized sect ion and content) No Status Records FoundNo Status Records FoundNo Status Records FoundNo Status Records FoundNo Status Records FoundNo Status Records Found INFORMATION SOURCE (unrecogn ized section and content) DATE CREATED AUTHOR 09/15/2020 [facility] DATE CREATED AUTHOR AUTHOR'S ORGANIZ ATION 10/25/2020 [facility] DATE CREATED AUTHOR AUTHOR'S ORGANIZ ATION 04/16/2022 [facility] DATE CREATED AUTHOR AUTHOR'S ORGANIZ ATION 04/05/2024 [facility] DATE CREATED AUTHOR AUTHOR'S ORGANIZ ATION 06/24/2024 [facility] DATE CREATED AUTHOR AUTHOR'S ORGANIZ ATION 01/15/2025 [facility] Care Teams (unrecognized sec tion and content) Team Status: Active Member Role Status Dates [facility] Family Provider Active [facility] Primary Care Provider Active Team Status: Inactive Member Role Status Dates [facility] Primary Care Provider Active Vinh Chacon MD Emergency Provider Active Goals (unrecognized section and content) Goals may be documented in a n alternate section FOR RECORDS PERTAINING TO PATIENTS WHO ARE OR HAVE BEEN ENROLLED IN A CHEMICAL DEPENDENCY/SUBSTANCEABUSE PROGRAM, SOME INFORMATION MAY BE OMITTED. This clinical summary was aggregated from multiple sources. Caution should be exercised in using it in the provision of clinical care. This summary normalizes information from multiple sources, and as a consequence, information in this document may materially change the coding, format and clinical context of patient data. In addition, data may be omitted in some cases. CLINICAL DECISIONS SHOULD BE BASED ON THE PRIMARY CLINICAL RECORDS. [facility] [facility]. provides no warranty or guarantee of the accuracy or completeness of information in this document.
--- NOTE | 2025-02-12 03:40 | RAD_ITS ---
PROCEDURE: CHEST PA AND LATERAL 02/12/2025 REASON FOR EXAM: COUGH TECHNIQUE: Procedure Code: RADCXR Modality: DX Procedure: CHEST PA AND LATERAL COMPARISON: 04/05/2022 FINDINGS: Hardware: None. Heart: The heart size is normal. Mediastinum: The mediastinal contour is unremarkable. Lungs: The lungs are clear. No pneumothorax or pleural effusion. Bones: The bones are unremarkable. RAD/Chest PA and Lateral IMPRESSION: NO ACUTE FINDINGS. Reading [facility]
[2025-02-12 03:53] VITALS: PULSE 78; RESP 16
[2025-02-12 04:11] VITALS: BP 130/59; PULSE 78; RESP 22; O2SAT 93
[2025-02-12 04:20] LABS: Anion Gap 13 (5-15); BUN 15 mg/dL (4-19); BUN/Creat Ratio 15.4 RATIO (10-20); Calcium,Total 9.0 mg/dL (7.6-11.0); Carbon Dioxide 21.8 mmol/L (21.0-32.0); Chloride 95 mmol/L (98-108); Estimated Creatinine Clearance 77.52 ml/min (50-250); Glucose 188 mg/dL (70-99); Potassium 4.1 mmol/L (3.3-5.1)
[2025-02-12 05:08] VITALS: BP 137/71; PULSE 75; RESP 16; TEMP 36.7; O2SAT 95
== END 2025-02-12 05:14 | disposition home or self-care (01) ==
PROVIDERS: Emergency Provider Emergency Medicine; Visit Provider Emergency Medicine
DX: J06.9 Acute upper respiratory infection, unspecified (principal); E11.9 Type 2 diabetes mellitus without complications; Z87.891 Personal history of nicotine dependence; E78.00 Pure hypercholesterolemia, unspecified; R06.02 Shortness of breath; I10 Essential (primary) hypertension; G47.30 Sleep apnea, unspecified; Z99.89 Dependence on other enabling machines and devices; Z79.82 Long term (current) use of aspirin; F41.9 Anxiety disorder, unspecified; F32.A Depression, unspecified; Z79.899 Other long term (current) drug therapy; Z79.84 Long term (current) use of oral hypoglycemic drugs; Z79.85 Long-term (current) use of injectable non-insulin antidiabetic drugs; Z90.49 Acquired absence of other specified parts of digestive tract
CPT/HCPCS: 71046; 80048; 85025; 87631; 94640; 96360; 99284